=== PATIENT | female | born 1960 | race African-American/Black ===

== ENCOUNTER 2016-09-16 08:28 | Inpatient (IN) | payer OTHER ==
[2016-09-16 10:01] VITALS: BMI 22.4
--- NOTE | 2016-09-16 10:36 | HP ---
Admission ROS [facility] - [facility] Chief Complaint: i am here for rehab from cocaine Allergies/Adverse Reactions: Allergies Allergy/AdvReac Type Severity Reaction Status Date / Time No Known Drug Allergies Allergy Verified 09/16/16 10:29 tomato [Tomato] Allergy "Fresh" Verified 09/16/16 10:29 Tomato Allergy FRESH TOMATOES Allergy Itching Uncoded 09/16/16 10:29 History of Present Illness: this 56 years old female with cocaine dependence for rehab,last treatment [facility] 02/05/16 to 02/08/16 need help to go to rehab nicotine dependence weight loss schizophrenia no significant period of sobriety Exam Limitations: No Limitations - Ebola screening Have you traveled outside of the country in the last 21 days: No Have you had contact with anyone from an Ebola affected area: No Have you been sick,other than usual withdrawal symptoms: No - Review of Systems Constitutional: No Symptoms Reported EENT: reports: No Symptoms Reported Respiratory: reports: No Symptoms reported Cardiac: reports: No Symptoms Reported GI: reports: No Symptoms Reported : reports: No Symptoms Reported, Other (gerd) Musculoskeletal: reports: No Symptoms Reported Integumentary: reports: No Symptoms Reported Neuro: reports: No Symptoms reported Endocrine: reports: No Symptoms Reported Hematology: reports: No Symptoms Reported Psychiatric: reports: other (schizophrenia) Patient History - Patient Medical History Hx Anemia: No Hx Asthma: No Hx Chronic Obstructive Pulmonary Disease (COPD): No Hx Cancer: No Hx Cardiac Disorders: No Hx Congestive Heart Failure: No Hx Hypertension: Yes (non compliant with meds.) Hx Hypercholesterolemia: No Hx Pacemaker: No HX Cerebrovascular Accident: No Hx Seizures: No Hx Dementia: No Hx Diabetes: No Hx Gastrointestinal Disorders: Yes (Hx of acid reflux.) Hx Liver Disease: No Hx Genitourinary Disorders: No Hx Sexually Transmitted Disorders: No Hx Renal Disease (ESRD): No Hx Thyroid Disease: No Hx Human Immunodeficiency Virus (HIV): No (NEGATIVE HX 09/16) Hx Hepatitis C: No Hx Depression: Yes (ON MED) Hx Suicide Attempt: Yes (Pt tried to cut wrist in 2000;DENIES CURRENT S/H IDEATIONS) Hx Bipolar Disorder: Yes Hx Schizophrenia: Yes Other Medical History: n suicidal,no homicidal - Patient Surgical History Past Surgical History: No Hx Neurologic Surgery: No Hx Cataract Extraction: No Hx Cardiac Surgery: No Hx Lung Surgery: No Hx Breast Surgery: No Hx Breast Biopsy: No Hx Abdominal Surgery: No Hx Appendectomy: No Hx Cholecystectomy: No Hx Genitourinary Surgery: No Hx Section: No Hx Orthopedic Surgery: No Hx Hysterectomy: No Anesthesia Reaction: No - PPD History Previous Implant?: Yes Implanted On Prior [facility] Admission?: Yes Date: 06/24/15 Results: 0 mm PPD to be Administered?: Yes - Reproductive History Patient is a Female of Child Bearing Age (11 -55 yrs old): Yes Last Menstrual Period: 07/12/09 Patient : No - Smoking Cessation Smoking history: Current every day smoker Have you smoked in the past 12 months: No Aproximately how many cigarettes per day: 6 Cigars Per Day: 0 Hx Chewing Tobacco Use: No Initiated information on smoking cessation: Yes 'Breaking Loose' booklet given: 09/16/16 - Substance & Tx. History Hx Alcohol Use: No Hx Substance Use: Yes Substance Use Type: Cocaine Hx Substance Use Treatment: Yes ([facility] 02/05/16 to 02/08/16 not completed) - Substances Abused Crack Route: Smoking Frequency: Daily Amount used: $100 Age of first use: 23 Date of Last Use: 09/14/16 Family Disease History - Family Disease History Family Disease History: Other: Father (alcohol ), Brother (alcoholic), Sister (alcoholic) Admission Physical Exam S - Vital Signs Vital Signs: Vital Signs - 24 hr 09/16/16 09:50 Temperature 96.1 F L Pulse Rate 58 L Respiratory 20 Rate Blood Pressure 146/85 - Physical General Appearance: Yes: Within Normal Limits HEENTM: Yes: Hearing grossly Normal, Normal ENT Inspection, Pharynx Normal Respiratory: Yes: Lungs Clear, Normal Breath Sounds, No Respiratory Distress Neck: Yes: Within Normal Limits, Supple, Trachea in good position Breast: Yes: Breast Exam Deferred Cardiology: Yes: Within Normal Limits, Regular Rhythm, Regular Rate, S1, S2 Abdominal: Yes: Within Normal Limits, Normal Bowel Sounds, Non Tender, Flat, Soft Genitourinary: Yes: Within Normal Limits Back: Yes: Within Normal Limits Musculoskeletal: Yes: Within Normal Limits Extremities: Yes: Within Normal Limits 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: 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 NML intact, Fully Oriented, Alert, Motor Strength 5/5 Integumentary: Yes: Within Normal Limits Lymphatic: Yes: Within Normal Limits - Diagnostic (1) Bipolar disorder Current Visit: No Status: Chronic (2) Cocaine dependence, uncomplicated Current Visit: No Status: Chronic (3) Essential hypertension Current Visit: No Status: Chronic (4) GERD (gastroesophageal reflux disease) Current Visit: No Status: Chronic Qualifiers: Esophagitis presence: without esophagitis Qualified Code(s): K21.9 - Gastro-esophageal reflux disease without esophagitis (5) Nicotine dependence Current Visit: No Status: Chronic Qualifiers: Nicotine product type: cigarettes Substance use status: uncomplicated Qualified Code(s): F17.210 - Nicotine dependence, cigarettes, uncomplicated (6) PTSD (post-traumatic stress disorder) Current Visit: No Status: Chronic (7) Weight loss Current Visit: Yes Status: Acute Cleared for Admission [facility] - Detox or Rehab Claeared for Rehab Admission: Yes [facility] Breath Alcohol Content Breath Alcohol Content: 0 Urine Pregancy Test - Result Urine Test Results: Negative- NO Line Present Urine Drug Screen - Results Drug Screen Negative: No Urine Drug Screen Results: ISAEL-Cocaine
[2016-09-16] MEDS ORDERED: MAG HYDROX/AL HYDROX/SIMETH 30 ML UNIT-DOSE CUP PO PRN (10:46)
[2016-09-16] MEDS ORDERED: LOPERAMIDE HCL 2 MG CAPSULE PO PRN (10:46)
[2016-09-16] MEDS ORDERED: hydrOXYzine PAMOATE 50 MG CAPSULE (FP) PO PRN (10:46)
[2016-09-16] MEDS ORDERED: MAGNESIUM CITRATE 300 ML BOTTLE PO PRN (10:46)
[2016-09-16] MEDS ORDERED: diphenhydrAMINE HCL 50 MG CAPSULE PO PRN (10:46)
[2016-09-16] MEDS ORDERED: guaiFENesin/D-METHORPHAN HB 10 ML UNIT-DOSE CUPS PO PRN (10:46)
[2016-09-16] MEDS ORDERED: P-EPHED 60MG/TRIPROLIDI 2.5MG TABLET PO PRN (10:46)
[2016-09-16] MEDS ORDERED: MAGNESIUM HYDROX 2400MG/30ML ORAL SUSPENSION 30 ML CUP PO PRN (10:46)
[2016-09-16] MEDS ORDERED: ACETAMINOPHEN 325 MG TABLET (FP) PO PRN (10:46)
[2016-09-16] MEDS ORDERED: MENTHOL/PHENOL 1 EACH UD MM PRN (10:46)
[2016-09-16] MEDS ORDERED: IBUPROFEN 400 MG TABLET (FP) PO PRN (10:46)
[2016-09-16] MEDS: HYDROCHLOROTHIAZIDE 25 MG TABLET (FP) PO SCH (12:55)
[2016-09-16] MEDS: PANTOPRAZOLE 40 MG TABLET (FP) PO SCH (12:55)
[2016-09-16 15:51] LABS: MCH 30.6 pg (25.7-33.7); MCHC 32.6 g/dl (32.0-36.0); MEAN CELL VOLUME 93.6 fl (80-96); MEAN PLT VOLUME 8.4 fl (7.5-11.1); PLATELET COUNT 229 K/MM3 (134-434); RDW 14.2 % (11.6-15.6); WHITE BLOOD COUNT 3.4 K/mm3 (4.0-10.0)
--- NOTE | 2016-09-16 16:00 | PN ---
[facility] Progress Note Note: Psychiatry (coverage for Dr Harris) : Called to see this patient.Just admitted from [facility]. Patient is approached for psychiatric interview. " I am tired.I don't need to talk to psychiatrists." Ms Ramires left office without answering questions. Examination is deferred.
[2016-09-16 16:07] LABS: URINE APPEARANCE CLEAR; URINE BILIRUBIN NEGATIVE (NEGATIVE); URINE COLOR LTYELLOW; URINE GLUCOSE (UA) NEGATIVE (NEGATIVE); URINE KETONE NEGATIVE (NEGATIVE); URINE LEUK ESTERASE NEGATIVE (NEGATIVE); URINE NITRITE NEGATIVE (NEGATIVE); URINE PROTEIN NEGATIVE (NEGATIVE); URINE UROBILINOGEN NEGATIVE mg/dL (0.2-1.0)
[2016-09-16 16:08] LABS: URINE BLOOD 1+ (NEGATIVE)
[2016-09-16 16:12] LABS: ALBUMIN 3.4 g/dl (3.4-5.0); ANION GAP 6 (8-16); CO2 28 mmol/L (21-32); CREATININE 0.9 mg/dL (0.55-1.02); GLUCOSE,RANDOM 84 mg/dL (74-106); SGOT/AST 18 U/L (15-37); SGPT/ALT 25 U/L (12-78)
[2016-09-16 16:14] LABS: ALK PHOS 93 U/L (45-117); BILIRUBIN,TOTAL 0.2 mg/dL (0.2-1.0); TOT PROT 6.6 g/dl (6.4-8.2)
[2016-09-16 16:32] LABS: URINE MUCUS RARE; URINE RBC 4 /hpf (0-3); URINE WBC <1 /hpf (3-5)
--- NOTE | 2016-09-16 16:59 | EKG ---
Test Reason : Blood Pressure : / mmHG Vent. Rate : 058 BPM Atrial Rate : 058 BPM P-R Int : 150 ms QRS Dur : 098 ms QT Int : 458 ms P-R-T Axes : -12 001 026 degrees QTc Int : 449 ms SINUS BRADYCARDIA VOLTAGE CRITERIA FOR LEFT VENTRICULAR HYPERTROPHY NONSPECIFIC T WAVE ABNORMALITY ABNORMAL ECG NO PREVIOUS ECGS AVAILABLE Confirmed by AMBERLY TRAN, EARNEST ([id number]) on 09/16/2016 4:59:19 PM Referred By: Jenn Harris Confirmed By:EARNEST GAMING MD
[2016-09-16] MEDS: THIAMINE HCL 100 MG TABLET (FP) PO SCH (21:20)
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
[2016-09-17] MEDS: PRENATAL VITAMINS W/ FOLIC ACID TABLET (FP) PO SCH (09:40)
[2016-09-17] MEDS: HYDROCHLOROTHIAZIDE 25 MG TABLET (FP) PO SCH (09:40)
[2016-09-17] MEDS: PANTOPRAZOLE 40 MG TABLET (FP) PO SCH (09:40)
[2016-09-17] MEDS ORDERED: HYDROCHLOROTHIAZIDE 25 MG TABLET (FP) PO SCH (10:00)
[2016-09-17 12:45] LABS: HIV 1 & 2 AB NEGATIVE
[2016-09-17 12:46] LABS: HIV 1 AGp24 NEGATIVE
[2016-09-17] MEDS: THIAMINE HCL 100 MG TABLET (FP) PO SCH (21:19)
[2016-09-18] MEDS: PANTOPRAZOLE 40 MG TABLET (FP) PO SCH (09:35)
[2016-09-18] MEDS: PRENATAL VITAMINS W/ FOLIC ACID TABLET (FP) PO SCH (09:35)
[2016-09-18] MEDS: HYDROCHLOROTHIAZIDE 25 MG TABLET (FP) PO SCH (09:35)
[2016-09-18] MEDS ORDERED: LIDOCAINE 5% TOPICAL PATCH TP ONE (14:02)
[2016-09-18] MEDS: THIAMINE HCL 100 MG TABLET (FP) PO SCH (21:16)
[2016-09-18] MEDS ORDERED: LIDOCAINE PATCH REMOVAL MC SCH ×2 (22:00)
[2016-09-19 07:21] VITALS: BP 147/93; PULSE 60; TEMP 98.3
--- NOTE | 2016-09-19 09:10 | PN ---
[facility] Progress Note Note: Coverage for : Was called this am for discharge order because of the team decision to discharge patinet administratively due to threatened behavior on the unit.(please see medical staff notes). As per staff patient did not want to wait the psychiatrist for evaluation and left the unit. The undersigned went down and saw the patient in hallway, patient reported "I am ok , I need to go". Patient currently not on any psychotropics, she is calm and cooperative.
[2016-09-19] MEDS ORDERED: LIDOCAINE 5% TOPICAL PATCH TP SCH (10:00)
== END 2016-09-19 08:50 | disposition home or self-care (01) | DRG 772 ==
LOC: YASAS 08:28 → Y3E 10:55
PROVIDERS: ADMIT Psychiatry & Neurology Psychiatry; ATTEND Psychiatry & Neurology Psychiatry
PROC: HZ42ZZZ Group Counseling for Substance Abuse Treatment, Cognitive-Behavioral (ICD-10-PCS; principal; 2016-09-19)
DX: F10.220 Alcohol dependence with intoxication, uncomplicated (principal); F14.20 Cocaine dependence, uncomplicated; F25.9 Schizoaffective disorder, unspecified; F31.9 Bipolar disorder, unspecified; F43.10 Post-traumatic stress disorder, unspecified; I10 Essential (primary) hypertension; K21.9 Gastro-esophageal reflux disease without esophagitis; R63.4 Abnormal weight loss; Z68.22 Body mass index [BMI] 22.0-22.9, adult
CPT/HCPCS: 36415; 80053; 81003; 81015; 85027; 86593; 87389; 93005; 93010

== ENCOUNTER 2018-04-02 09:44 | Inpatient (IN) | payer OTHER ==
[2018-04-02 10:00] VITALS: BMI 29.9
--- NOTE | 2018-04-02 10:48 | HP ---
CIWA Score - Admission Criteria [facility]ASAS Guidelines: Admission for Medically Managed Detox: Requires at least one of the followin. CIWA greater than 12 2. Seizures within the past 24 hours 3. Delirium tremens within the past 24 hours 4. Hallucinations within the past 24 hours 5. Acute intervention needed for co occurring medical disorder 6. Acute intervention needed for co occurring psychiatric disorder 7. Severe withdrawal that cannot be handled at a lower level of care (continued vomiting, continued diarrhea, abnormal vital signs) requiring intravenous medication and/or fluids 8. Admission ROS [facility] - HPI Chief Complaint: i need help to go to rehab from cocaine Allergies/Adverse Reactions: Allergies Allergy/AdvReac Type Severity Reaction Status Date / Time tomato [Tomato] Allergy Severe Hives Verified 04/02/18 10:12 No Known Drug Allergies Allergy Verified 04/02/18 10:12 FRESH TOMATOES Allergy Severe Hives Uncoded 04/02/18 10:12 History of Present Illness: this 57 years old male with cocaine dependence seeking rehab,last treatment [facility] 09/16/16 to 09/19/16 not completed hypertension, bipolar disorder,non compliance nicotine dependence longest period of sobriety 6 months Exam Limitations: No Limitations - Ebola screening Have you traveled outside of the country in the last 21 days: No Have you had contact with anyone from an Ebola affected area: No Have you been sick,other than usual withdrawal symptoms: No Do you have a fever: No - Review of Systems Constitutional: No Symptoms Reported EENT: reports: No Symptoms Reported Respiratory: reports: No Symptoms reported GI: reports: No Symptoms Reported : reports: No Symptoms Reported Musculoskeletal: reports: No Symptoms Reported Integumentary: reports: No Symptoms Reported Neuro: reports: No Symptoms reported Endocrine: reports: No Symptoms Reported Hematology: reports: No Symptoms Reported Psychiatric: reports: No Sypmtoms Reported, Judgement Intact, Depressed Other Systems: Reviewed and Negative Patient History - Patient Medical History Hx Anemia: No Hx Asthma: No Hx Chronic Obstructive Pulmonary Disease (COPD): No Hx Cancer: No Hx Cardiac Disorders: No Hx Congestive Heart Failure: No Hx Hypertension: Yes Hx Hypercholesterolemia: No Hx Pacemaker: No HX Cerebrovascular Accident: No Hx Seizures: No Hx Dementia: No Hx Diabetes: No Hx Gastrointestinal Disorders: Yes (acid reflux) Hx Liver Disease: No Hx Genitourinary Disorders: No Hx Sexually Transmitted Disorders: No Hx Renal Disease (ESRD): No Hx Thyroid Disease: No Hx Human Immunodeficiency Virus (HIV): No (NEGATIVE HX 09/16) Hx Hepatitis C: No Hx Depression: Yes Hx Suicide Attempt: Yes (cut both wrists with a piece of glass at age 32) Hx Bipolar Disorder: Yes (no med) Hx Schizophrenia: No Other Medical History: no suicidal.no homicidal - Patient Surgical History Past Surgical History: No Hx Neurologic Surgery: No Hx Cataract Extraction: No Hx Cardiac Surgery: No Hx Lung Surgery: No Hx Breast Surgery: No Hx Breast Biopsy: No Hx Abdominal Surgery: No Hx Appendectomy: No Hx Cholecystectomy: No Hx Genitourinary Surgery: No Hx Section: No Hx Orthopedic Surgery: No Hx Hysterectomy: No Anesthesia Reaction: No - PPD History Previous Implant?: Yes Documented Results: Negative w/proof Implanted On Prior [facility] Admission?: Yes Date: 09/18/16 Results: 0 mm PPD to be Administered?: Yes - Reproductive History Patient is a Female of Child Bearing Age (11 -55 yrs old): Yes Last Menstrual Period: 07/12/09 Patient : No - Smoking Cessation Smoking history: Current every day smoker Have you smoked in the past 12 months: No Aproximately how many cigarettes per day: 5 Cigars Per Day: 0 Hx Chewing Tobacco Use: No Initiated information on smoking cessation: Yes 'Breaking Loose' booklet given: 04/02/18 - Substance & Tx. History Hx Alcohol Use: No Hx Substance Use: Yes Substance Use Type: Cocaine Hx Substance Use Treatment: Yes ([facility] 09/16/16 to 09/19/16) - Substances Abused Crack Route: Smoking Frequency: 3-6 times per week Amount used: $100 Age of first use: 23 Date of Last Use: 03/31/18 Family Disease History - Family Disease History Family Disease History: CA: Mother (breast cancer,), Other: Mother, Brother (alcoholic), Sister (alcoholic) Admission Physical Exam [facility] - Vital Signs Vital Signs: Vital Signs - 24 hr 04/02/18 09:57 Temperature 97.3 F L Pulse Rate 70 Respiratory 18 Rate Blood Pressure 148/92 - Physical General Appearance: Yes: Within Normal Limits HEENTM: Yes: Within Normal Limits, Normal ENT Inspection, Pharynx Normal Respiratory: Yes: Within Normal Limits, Lungs Clear, Normal Breath Sounds Neck: Yes: Within Normal Limits, Supple Breast: Yes: Breast Exam Deferred Cardiology: Yes: Within Normal Limits, Regular Rhythm, Regular Rate, S1, S2 Abdominal: Yes: Within Normal Limits, Normal Bowel Sounds, Non Tender, Soft Back: Yes: Within Normal Limits Extremities: Yes: Within Normal Limits 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: 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, Fully Oriented, Alert, Motor Strength 5/5 Integumentary: Yes: Within Normal Limits Lymphatic: Yes: Within Normal Limits - Diagnostic (1) Cocaine dependence, uncomplicated Current Visit: No Status: Chronic (2) Essential hypertension Current Visit: No Status: Chronic (3) GERD (gastroesophageal reflux disease) Current Visit: No Status: Chronic Qualifiers: Esophagitis presence: without esophagitis Qualified Code(s): K21.9 - Gastro -esophageal reflux disease without esophagitis (4) Nicotine dependence Current Visit: No Status: Chronic Qualifiers: Nicotine product type: cigarettes Substance use status: uncomplicated Qualified Code(s): F17.210 - Nicotine dependence, cigarettes, uncomplicated (5) Arthritis of right knee Current Visit: Yes Status: Acute Cleared for Admission [facility] - Detox or Rehab Claeared for Rehab Admission: Yes [facility] Breath Alcohol Content Breath Alcohol Content: 0 Urine Pregancy Test - Result Urine Test Results: Negative- NO Line Present Urine Drug Screen - Results Drug Screen Negative: No Urine Drug Screen Results: ISAEL-Cocaine Inpatient Rehab Admission - Initial Determination Are CD services needed?: Yes Free of communicable disease: Yes Not in need of hospitalization: Yes - Rehab Admission Criteria Previous failed treatment: Yes Poor recovery environment: Yes Comorbidities: Yes Lacks judgement: No Patient is meeting Inpatient Rehab admission criteria:: Yes
[2018-04-02] MEDS ORDERED: ACETAMINOPHEN 325 MG TABLET (FP) PO PRN (11:14)
[2018-04-02] MEDS ORDERED: MAGNESIUM CITRATE 300 ML BOTTLE PO PRN (11:14)
[2018-04-02] MEDS ORDERED: NICOTINE POLACRILEX 2 MG GUM BUC PRN (11:14)
[2018-04-02] MEDS ORDERED: LOPERAMIDE HCL 2 MG CAPSULE PO PRN (11:14)
[2018-04-02] MEDS ORDERED: P-EPHED 60MG/TRIPROLIDI 2.5MG TABLET PO PRN (11:14)
[2018-04-02] MEDS ORDERED: MENTHOL/PHENOL 1 EACH UD MM PRN (11:14)
[2018-04-02] MEDS ORDERED: MAGNESIUM HYDROX 2400MG/30ML ORAL SUSPENSION 30 ML CUP PO PRN (11:14)
[2018-04-02] MEDS ORDERED: MAG HYDROX/AL HYDROX/SIMETH 30 ML UNIT-DOSE CUP PO PRN (11:14)
[2018-04-02] MEDS ORDERED: guaiFENesin/D-METHORPHAN HB 10 ML UNIT-DOSE CUPS PO PRN (11:14)
[2018-04-02] MEDS ORDERED: hydrOXYzine PAMOATE 25 MG CAPSULE (FP) PO PRN (11:42)
[2018-04-02] MEDS: HYDROCHLOROTHIAZIDE 25 MG TABLET (FP) PO SCH (14:20)
[2018-04-02 15:39] LABS: HEMATOCRIT 38.1 % (32.4-45.2); HEMOGLOBIN 12.9 GM/dL (10.7-15.3); MCH 31.7 pg (25.7-33.7); MCHC 33.8 g/dl (32.0-36.0); MEAN CELL VOLUME 93.7 fl (80-96); MEAN PLT VOLUME 8.2 fl (7.5-11.1); PLATELET COUNT 237 K/MM3 (134-434); RBC 4.06 M/mm3 (3.60-5.2); RDW 14.5 % (11.6-15.6); WHITE BLOOD COUNT 5.6 K/mm3 (4.0-10.0)
[2018-04-02 15:54] LABS: ALBUMIN 3.8 g/dl (3.4-5.0); ALK PHOS 105 U/L (45-117); ANION GAP 6 MMOL/L (8-16); BILIRUBIN,TOTAL 0.4 mg/dL (0.2-1); BLOOD UREA NITROGEN 16 mg/dL (7-18); CALCIUM 9.5 mg/dL (8.5-10.1); CHLORIDE 108 mmol/L (98-107); CO2 29 mmol/L (21-32); CREATININE 1.2 mg/dL (0.55-1.3); GLUCOSE,RANDOM 90 mg/dL (74-106); POTASSIUM 4.2 mmol/L (3.5-5.1); SGOT/AST 16 U/L (15-37); SGPT/ALT 23 U/L (13-61); SODIUM 142 mmol/L (136-145); TOT PROT 7.2 g/dl (6.4-8.2)
--- NOTE | 2018-04-02 16:37 | EKG ---
Test Reason : Blood Pressure : / mmHG Vent. Rate : 058 BPM Atrial Rate : 058 BPM P-R Int : 144 ms QRS Dur : 088 ms QT Int : 446 ms P-R-T Axes : 004 054 032 degrees QTc Int : 437 ms SINUS BRADYCARDIA MINIMAL VOLTAGE CRITERIA FOR LVH, MAY BE NORMAL VARIANT NONSPECIFIC ST AND T WAVE ABNORMALITY ABNORMAL ECG WHEN COMPARED WITH ECG OF 16-SEP-2016 12:19, NON-SPECIFIC CHANGE IN ST SEGMENT IN INFERIOR LEADS ST NO LONGER DEPRESSED IN LATERAL LEADS Confirmed by CARLA MILLER MD ([id number]) on 04/02/2018 4:36:43 PM Referred By: Confirmed By:CARLA MILLER MD
[2018-04-02] MEDS: THIAMINE HCL 100 MG TABLET (FP) PO SCH (21:14)
[2018-04-02] MEDS: IBUPROFEN 400 MG TABLET (FP) PO PRN (21:14)
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
[2018-04-03] MEDS: HYDROCHLOROTHIAZIDE 25 MG TABLET (FP) PO SCH (10:47)
[2018-04-03] MEDS: PRENATAL VITAMINS W/ FOLIC ACID TABLET (FP) PO SCH (10:47)
[2018-04-03] MEDS: IBUPROFEN 400 MG TABLET (FP) PO PRN (17:15)
[2018-04-03] MEDS: THIAMINE HCL 100 MG TABLET (FP) PO SCH (21:06)
[2018-04-03] MEDS: MELATONIN 5 MG TABLETS PO PRN (21:08)
[2018-04-04] MEDS: HYDROCHLOROTHIAZIDE 25 MG TABLET (FP) PO SCH (10:15)
[2018-04-04] MEDS: PRENATAL VITAMINS W/ FOLIC ACID TABLET (FP) PO SCH (10:16)
[2018-04-04] MEDS: THIAMINE HCL 100 MG TABLET (FP) PO SCH (21:33)
[2018-04-04] MEDS: MELATONIN 5 MG TABLETS PO PRN (21:33)
[2018-04-05 07:29] VITALS: BP 137/86; PULSE 62; TEMP 97.9
[2018-04-05] MEDS: HYDROCHLOROTHIAZIDE 25 MG TABLET (FP) PO SCH (10:30)
[2018-04-05] MEDS: PRENATAL VITAMINS W/ FOLIC ACID TABLET (FP) PO SCH (10:30)
--- NOTE | 2018-04-05 15:09 | PN ---
[facility] Progress Note Note: called by nurse stated patient would like to leave ,seen by counselor,all attempted to convince patient to stay with no available, patient did not want to wait,signed release ama ,left the unit in stable condition
== END 2018-04-05 13:24 | disposition left against medical advice (07) | DRG 770 ==
LOC: YASAS 09:44 → Y3E 11:35
PROVIDERS: ADMIT Neuromusculoskeletal Medicine & OMM; ATTEND Neuromusculoskeletal Medicine & OMM
PROC: HZ2ZZZZ Detoxification Services for Substance Abuse Treatment (ICD-10-PCS; principal; 2018-04-02)
DX: F10.230 Alcohol dependence with withdrawal, uncomplicated (principal); F14.20 Cocaine dependence, uncomplicated; F17.210 Nicotine dependence, cigarettes, uncomplicated; F31.81 Bipolar II disorder; F25.9 Schizoaffective disorder, unspecified; I10 Essential (primary) hypertension; K21.9 Gastro-esophageal reflux disease without esophagitis; M13.861 Other specified arthritis, right knee; Z91.5 Personal history of self-harm
CPT/HCPCS: 36415; 80053; 85027; 86593; 93005; 93010

== ENCOUNTER 2018-06-08 15:21 | Inpatient (IN) | payer OTHER ==
[2018-06-08 19:05] VITALS: BMI 27.4
--- NOTE | 2018-06-08 19:38 | HP ---
CIWA Score Nausea/Vomitin Muscle Tremors: 2 Anxiety: 3 Agitation: 0-Normal Activity Paroxysmal Sweats: 2 Orientation: 0-Oriented Tacttile Disturbances: 2-Mild Itch/Numbness/Burn (finger tips b/l) Auditory Disturbances: 0-None Visual Disturbances: 0-None Headache: 0-None Present CIWA-Ar Total Score: 12 - Admission Criteria OASAS Guidelines: Admission for Medically Managed Detox: Requires at least one of the followin. CIWA greater than 12 2. Seizures within the past 24 hours 3. Delirium tremens within the past 24 hours 4. Hallucinations within the past 24 hours 5. Acute intervention needed for co occurring medical disorder 6. Acute intervention needed for co occurring psychiatric disorder 7. Severe withdrawal that cannot be handled at a lower level of care (continued vomiting, continued diarrhea, abnormal vital signs) requiring intravenous medication and/or fluids 8. Patient presents the following: CIWA greater than 12, Acute intervention needed for co-occurring med or psych disorder Admission Criteria Met: Admission criteria met Admission ROS [facility] Chief Complaint: " I am tire, detox" Allergies/Adverse Reactions: Allergies Allergy/AdvReac Type Severity Reaction Status Date / Time tomato [Tomato] Allergy Severe Hives Verified 04/02/18 10:12 No Known Drug Allergies Allergy Verified 04/02/18 10:12 FRESH TOMATOES Allergy Severe Hives Uncoded 04/02/18 10:12 History of Present Illness: this 57 years old female with cocaine and alcohol dependence seeking detox, , last treatment rehab at [facility] 04/02/18 - 04/05/18 left AMA. 2-3 x 6 pack of beer day, last drink yesterday, reports drinking has worsen in the past year Denies hx of seizures or blackouts PMHX: hypertension Psych : bipolar disorder and depression non compliance longest period of sobriety 6 months Exam Limitations: No Limitations - Ebola screening Have you traveled outside of the country in the last 21 days: No Have you had contact with anyone from an Ebola affected area: No - Review of Systems Constitutional: Chills, Loss of Appetite, Changes in sleep, Unintentional Wgt. Loss (20 lbs in past 30 days), Other (fatigue) EENT: reports: No Symptoms Reported Respiratory: reports: No Symptoms reported Cardiac: reports: Palpitations GI: reports: Diarrhea (x 2 days), Nausea, Poor Appetite, Poor Fluid Intake : reports: No Symptoms Reported Musculoskeletal: reports: Back Pain (low back for 4-5 months) Integumentary: reports: Dryness Neuro: reports: Numbness (finger tips b/t) Endocrine: reports: Increased Thirst Hematology: reports: No Symptoms Reported Psychiatric: reports: Orientated x3, Depressed Other Systems: Reviewed and Negative Patient History - Patient Medical History Hx Anemia: No Hx Asthma: No Hx Chronic Obstructive Pulmonary Disease (COPD): No Hx Cancer: No Hx Cardiac Disorders: No Hx Congestive Heart Failure: No Hx Hypertension: No Hx Hypercholesterolemia: No Hx Pacemaker: No HX Cerebrovascular Accident: No Hx Seizures: No Hx Dementia: No Hx Diabetes: No Hx Gastrointestinal Disorders: No Hx Liver Disease: No Hx Genitourinary Disorders: No Hx Sexually Transmitted Disorders: No Hx Renal Disease (ESRD): No Hx Thyroid Disease: No Hx Human Immunodeficiency Virus (HIV): No (NEGATIVE HX 09/16) Hx Hepatitis C: No Hx Depression: Yes Hx Suicide Attempt: Yes (cut both wrists with a piece of glass at age 32) Hx Bipolar Disorder: Yes (no med) Hx Schizophrenia: No - Patient Surgical History Past Surgical History: No Hx Neurologic Surgery: No Hx Cataract Extraction: No Hx Cardiac Surgery: No Hx Lung Surgery: No Hx Breast Surgery: No Hx Breast Biopsy: No Hx Abdominal Surgery: No Hx Appendectomy: No Hx Cholecystectomy: No Hx Genitourinary Surgery: No Hx Section: No Hx Orthopedic Surgery: No Hx Hysterectomy: No Anesthesia Reaction: No - PPD History Previous Implant?: No Documented Results: Negative w/proof Date: 04/04/18 Results: 0 mm PPD to be Administered?: No - Reproductive History Last Menstrual Period: 07/12/09 - Smoking Cessation Smoking history: Current every day smoker Have you smoked in the past 12 months: No Aproximately how many cigarettes per day: 5 Cigars Per Day: 0 Hx Chewing Tobacco Use: No Initiated information on smoking cessation: Yes 'Breaking Loose' booklet given: 06/08/18 - Substance & Tx. History Hx Alcohol Use: Yes Hx Substance Use: Yes Substance Use Type: Alcohol, Cocaine Hx Substance Use Treatment: Yes ([facility] 04/02/18 - 04/05/18 left AMA.) - Substances abused Alcohol Substance route: Oral Frequency: Daily Amount used: 2-3 x 6 pack of beer day Age of first use: 17 Date of last use: 06/07/18 Family Disease History - Family Disease History Family Disease History: CA: Mother (breast cancer,), Other: Father ( alcohol ), Mother, Brother (alcoholic), Sister (alcoholic) Admission Physical Exam [facility] - Vital Signs Vital Signs: Vital Signs - 24 hr 06/08/18 06/08/18 19:01 19:05 Temperature 98.0 F 98.0 F Pulse Rate 69 69 Respiratory 18 18 Rate Blood Pressure 135/84 135/84 - Physical General Appearance: Yes: Disheveled (unkempt), Sweating, Anxious HEENTM: Yes: EOMI, Hearing grossly Normal, Normal ENT Inspection, Normocephalic , Normal Voice, LUPE, Pharynx Normal, Tm's normal, Other (edentulous, cheilitis) Respiratory: Yes: Chest Non-Tender, Lungs Clear, Normal Breath Sounds, No Respiratory Distress, No Accessory Muscle Use Neck: Yes: Within Normal Limits Breast: Yes: Breast Exam Deferred Cardiology: Yes: Regular Rhythm, Regular Rate Abdominal: Yes: Normal Bowel Sounds, Non Tender, Soft, Protuberent Genitourinary: Yes: Within Normal Limits Back: Yes: Normal Inspection Musculoskeletal: Yes: full range of Motion, Gait Steady, Pelvis Stable, Back pain Extremities: Yes: Normal Capillary Refill, Normal Inspection, Normal Range of Motion, Non-Tender 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: tube washer II-XII NML intact, Fully Oriented, Alert, Motor Strength 5/5, Depressed Affect Integumentary: Yes: Normal Color, Warm, Diaphoresis Lymphatic: Yes: Within Normal Limits - Diagnostic (1) Weight loss Current Visit: Yes Status: Acute (2) Alcohol dependence with uncomplicated withdrawal Current Visit: Yes Status: Acute (3) Essential hypertension Current Visit: Yes Status: Chronic (4) Nicotine dependence Current Visit: Yes Status: Chronic Qualifiers: Nicotine product type: cigarettes Substance use status: uncomplicated Qualified Code(s): F17.210 - Nicotine dependence, cigarettes, uncomplicated Cleared for Admission [facility] - Detox or Rehab [facility] Level of Care: Medically Managed Detox Regimen/Protocol: Librium Breathalyzer - Breathalyzer Breathalyzer: 0 POC Urine test - Control test control: Yes - Result Urine Test Results: Negative - NO line present Urine Drug Screen - Test Device Lot number: [id number] Expiration date: 05/31/19 - Control Is test valid?: Yes - Results Drug screen NEGATIVE: No Urine drug screen results: [facility]-Cocaine Inpatient Rehab Admission - Rehab Decision to Admit Inpatient rehab admission?: No
[2018-06-08] MEDS ORDERED: ACETAMINOPHEN 325 MG TABLET (FP) PO PRN ×2 (19:46)
[2018-06-08] MEDS ORDERED: MAGNESIUM CITRATE 300 ML BOTTLE PO PRN (19:46)
[2018-06-08] MEDS ORDERED: MELATONIN 5 MG TABLETS PO PRN (19:46)
[2018-06-08] MEDS ORDERED: METHOCARBAMOL 500 MG TABLET PO PRN (19:46)
[2018-06-08] MEDS ORDERED: IBUPROFEN 400 MG TABLET (FP) PO PRN (19:46)
[2018-06-08] MEDS ORDERED: MAGNESIUM HYDROX 2400MG/30ML ORAL SUSPENSION 30 ML CUP PO PRN (19:46)
[2018-06-08] MEDS ORDERED: chlordiazePOXIDE HCL 25 MG CAPSULE PO PRN (19:46)
[2018-06-08] MEDS ORDERED: BISMUTH SUBSALICYLATE 524 MG/30 ML UD PO PRN (19:46)
[2018-06-08] MEDS ORDERED: MAG HYDROX/AL HYDROX/SIMETH 30 ML UNIT-DOSE CUP PO PRN (19:46)
[2018-06-08] MEDS ORDERED: hydrOXYzine PAMOATE 25 MG CAPSULE (FP) PO PRN (19:46)
[2018-06-08] MEDS ORDERED: MENTHOL/PHENOL 1 EACH UD MM PRN (19:46)
[2018-06-08] MEDS ORDERED: NICOTINE POLACRILEX 2 MG GUM BUC PRN (19:46)
[2018-06-08] MEDS: chlordiazePOXIDE HCL 25 MG CAPSULE PO SCH (22:29)
[2018-06-08] MEDS: THIAMINE HCL 100 MG TABLET (FP) PO SCH (22:29)
[2018-06-09] MEDS: chlordiazePOXIDE HCL 25 MG CAPSULE PO SCH ×4 (06:37→22:31)
[2018-06-09 10:37] LABS: HEMATOCRIT 37.6 % (32.4-45.2); HEMOGLOBIN 12.8 GM/dL (10.7-15.3); MCH 31.4 pg (25.7-33.7); MCHC 33.9 g/dl (32.0-36.0); MEAN CELL VOLUME 92.8 fl (80-96); MEAN PLT VOLUME 8.5 fl (7.5-11.1); PLATELET COUNT 197 K/MM3 (134-434); RBC 4.05 M/mm3 (3.60-5.2); RDW 15.3 % (11.6-15.6)
[2018-06-09 10:42] LABS: ALBUMIN 3.1 g/dl (3.4-5.0); ALK PHOS 79 U/L (45-117); ANION GAP 4 MMOL/L (8-16); BILIRUBIN,TOTAL 0.4 mg/dL (0.2-1); BLOOD UREA NITROGEN 22 mg/dL (7-18); CHLORIDE 114 mmol/L (98-107); CO2 26 mmol/L (21-32); CREATININE 1.1 mg/dL (0.55-1.3); GLUCOSE,RANDOM 93 mg/dL (74-106); POTASSIUM 4.1 mmol/L (3.5-5.1); SGOT/AST 31 U/L (15-37); SGPT/ALT 34 U/L (13-61); SODIUM 144 mmol/L (136-145); TOT PROT 6.2 g/dl (6.4-8.2)
[2018-06-09] MEDS: PRENATAL VITAMINS W/ FOLIC ACID TABLET (FP) PO SCH (11:09)
[2018-06-09] MEDS: HYDROCHLOROTHIAZIDE 25 MG TABLET (FP) PO SCH (11:09)
[2018-06-09] MEDS: NICOTINE 14 MG/24 HOURS TOPICAL PATCH TD SCH (11:09)
--- NOTE | 2018-06-09 14:53 | PN ---
[facility] CIWA - CIWA Score Nausea/Vomitin-No Nausea/No Vomiting Muscle Tremors: 3 Anxiety: 1-Mildly Anxious Agitation: 2 Paroxysmal Sweats: 1-Minimal Palms Moist Orientation: 2-Disoriented Date<2 days Tacttile Disturbances: 0-None Auditory Disturbances: 0-None Visual Disturbances: 0-None Headache: 0-None Present CIWA-Ar Total Score: 9 [facility] Progress Note (SOAP) Subjective: doing ok today attend group and participate in discussion Objective: 06/09/18 14:52 Vital Signs Temperature 98.1 F 06/09/18 09:14 Pulse Rate 64 06/09/18 09:14 Respiratory Rate 18 06/09/18 09:14 Blood Pressure 135/82 06/09/18 09:14 O2 Sat by Pulse Oximetry (%) Laboratory Last Values WBC 3.0 K/mm3 (4.0-10.0) L 06/09/18 07:45 RBC 4.05 M/mm3 (3.60-5.2) 06/09/18 07:45 Hgb 12.8 GM/dL (10.7-15.3) 06/09/18 07:45 Hct 37.6 % (32.4-45.2) 06/09/18 07:45 MCV 92.8 fl (80-96) 06/09/18 07:45 MCH 31.4 pg (25.7-33.7) 06/09/18 07:45 MCHC 33.9 g/dl (32.0-36.0) 06/09/18 07:45 RDW 15.3 % (11.6-15.6) 06/09/18 07:45 Plt Count 197 K/MM3 (134-434) 06/09/18 07:45 MPV 8.5 fl (7.5-11.1) 06/09/18 07:45 Sodium 144 mmol/L (136-145) 06/09/18 07:45 Potassium 4.1 mmol/L (3.5-5.1) 06/09/18 07:45 Chloride 114 mmol/L (98-107) H 06/09/18 07:45 Carbon Dioxide 26 mmol/L (21-32) 06/09/18 07:45 Anion Gap 4 MMOL/L (8-16) L 06/09/18 07:45 BUN 22 mg/dL (7-18) H 06/09/18 07:45 Creatinine 1.1 mg/dL (0.55-1.3) 06/09/18 07:45 Creat Clearance w eGFR 51.57 (>60) 06/09/18 07:45 Random Glucose 93 mg/dL (74-106) 06/09/18 07:45 Calcium 9.0 mg/dL (8.5-10.1) 06/09/18 07:45 Total Bilirubin 0.4 mg/dL (0.2-1) 06/09/18 07:45 AST 31 U/L (15-37) 06/09/18 07:45 ALT 34 U/L (13-61) 06/09/18 07:45 Alkaline Phosphatase 79 U/L (45-117) 06/09/18 07:45 Total Protein 6.2 g/dl (6.4-8.2) L 06/09/18 07:45 Albumin 3.1 g/dl (3.4-5.0) L 06/09/18 07:45 lab noted Assessment: 06/09/18 14:52 withdrawal sx Plan: continue detox
--- NOTE | 2018-06-09 17:06 | CONSULT ---
[facility] Psychiatric Consult - Data Date of interview: 06/09/18 Admission source: [facility] Identifying data: Approached for psychiaric interview. Patient refused. Nursing staff is made aware.
[2018-06-09] MEDS ORDERED: hydrOXYzine HCL 25 MG TABLET (FP) PO PRN (18:51)
[2018-06-09] MEDS: THIAMINE HCL 100 MG TABLET (FP) PO SCH (22:31)
[2018-06-10] MEDS: chlordiazePOXIDE HCL 25 MG CAPSULE PO SCH ×3 (06:23→17:18)
[2018-06-10] MEDS: HYDROCHLOROTHIAZIDE 25 MG TABLET (FP) PO SCH (10:46)
[2018-06-10] MEDS: PRENATAL VITAMINS W/ FOLIC ACID TABLET (FP) PO SCH (10:46)
[2018-06-10] MEDS: NICOTINE 14 MG/24 HOURS TOPICAL PATCH TD SCH (10:49)
--- NOTE | 2018-06-10 15:52 | PN ---
S CIWA - CIWA Score Nausea/Vomitin-Mild Nausea/No Vomiting Muscle Tremors: 1-None Visible, but [place] Anxiety: 1-Mildly Anxious Agitation: 1-Slight > Activity Paroxysmal Sweats: 1-Minimal Palms Moist Orientation: 0-Oriented Tacttile Disturbances: 0-None Auditory Disturbances: 0-None Visual Disturbances: 0-None Headache: 0-None Present CIWA-Ar Total Score: 5 [facility] Progress Note (SOAP) Subjective: pt has no complaints today- says she is feeling fine. O: Vital Signs - 24 hr 06/09/18 06/09/18 06/10/18 18:07 21:43 00:30 Temperature 97.0 F L 96.7 F L Pulse Rate 59 L 69 Respiratory 18 16 18 Rate Blood Pressure 132/81 153/91 06/10/18 06/10/18 06/10/18 06:34 07:44 09:49 Temperature 98.1 F 98.4 F Pulse Rate 68 67 70 Respiratory 18 18 18 Rate Blood Pressure 167/87 127/79 125/70 Laboratory Tests 06/09/18 06/09/18 07:45 07:45 WBC 3.0 L RBC 4.05 Hgb 12.8 Hct 37.6 MCV 92.8 MCH 31.4 MCHC 33.9 RDW 15.3 Plt Count 197 MPV 8.5 Sodium 144 Potassium 4.1 Chloride 114 H Carbon Dioxide 26 Anion Gap 4 L BUN 22 H Creatinine 1.1 Creat Clearance w eGFR 51.57 Random Glucose 93 Calcium 9.0 Total Bilirubin 0.4 AST 31 ALT 34 Alkaline Phosphatase 79 Total Protein 6.2 L Albumin 3.1 L decreased GFR nl Cr 1.1 albumin 3.1 a/p: continue alcohol detox protocol- pt stable
[2018-06-10] MEDS: THIAMINE HCL 100 MG TABLET (FP) PO SCH (22:28)
[2018-06-10] MEDS: chlordiazePOXIDE HCL 10 MG CAPSULE PO SCH (22:28)
[2018-06-10] MEDS ORDERED: chlordiazePOXIDE HCL 10 MG CAPSULE PO PRN (23:00)
[2018-06-11] MEDS: chlordiazePOXIDE HCL 10 MG CAPSULE PO SCH ×3 (06:19→18:27)
[2018-06-11] MEDS: HYDROCHLOROTHIAZIDE 25 MG TABLET (FP) PO SCH (10:12)
[2018-06-11] MEDS: PRENATAL VITAMINS W/ FOLIC ACID TABLET (FP) PO SCH (10:12)
[2018-06-11] MEDS: NICOTINE 14 MG/24 HOURS TOPICAL PATCH TD SCH (11:11)
--- NOTE | 2018-06-11 15:32 | PN ---
[facility] CIWA - CIWA Score Nausea/Vomitin-No Nausea/No Vomiting Muscle Tremors: 1-None Visible, but [place] Anxiety: 0-No Anxiety, at Ease Agitation: 1-Slight > Activity Paroxysmal Sweats: No Perspiration Orientation: 0-Oriented Tacttile Disturbances: 0-None Auditory Disturbances: 0-None Visual Disturbances: 0-None Headache: 0-None Present CIWA-Ar Total Score: 2 [facility] Progress Note (SOAP) Subjective: feeling better discuss aftercare with staff Objective: 06/11/18 15:31 Vital Signs Temperature 96 F L 06/11/18 13:28 Pulse Rate 70 06/11/18 13:28 Respiratory Rate 20 06/11/18 13:28 Blood Pressure 133/84 06/11/18 13:28 O2 Sat by Pulse Oximetry (%) Laboratory Last Values WBC 3.0 K/mm3 (4.0-10.0) L 06/09/18 07:45 RBC 4.05 M/mm3 (3.60-5.2) 06/09/18 07:45 Hgb 12.8 GM/dL (10.7-15.3) 06/09/18 07:45 Hct 37.6 % (32.4-45.2) 06/09/18 07:45 MCV 92.8 fl (80-96) 06/09/18 07:45 MCH 31.4 pg (25.7-33.7) 06/09/18 07:45 MCHC 33.9 g/dl (32.0-36.0) 06/09/18 07:45 RDW 15.3 % (11.6-15.6) 06/09/18 07:45 Plt Count 197 K/MM3 (134-434) 06/09/18 07:45 MPV 8.5 fl (7.5-11.1) 06/09/18 07:45 Sodium 144 mmol/L (136-145) 06/09/18 07:45 Potassium 4.1 mmol/L (3.5-5.1) 06/09/18 07:45 Chloride 114 mmol/L (98-107) H 06/09/18 07:45 Carbon Dioxide 26 mmol/L (21-32) 06/09/18 07:45 Anion Gap 4 MMOL/L (8-16) L 06/09/18 07:45 BUN 22 mg/dL (7-18) H 06/09/18 07:45 Creatinine 1.1 mg/dL (0.55-1.3) 06/09/18 07:45 Creat Clearance w eGFR 51.57 (>60) 06/09/18 07:45 Random Glucose 93 mg/dL (74-106) 06/09/18 07:45 Calcium 9.0 mg/dL (8.5-10.1) 06/09/18 07:45 Total Bilirubin 0.4 mg/dL (0.2-1) 06/09/18 07:45 AST 31 U/L (15-37) 06/09/18 07:45 ALT 34 U/L (13-61) 06/09/18 07:45 Alkaline Phosphatase 79 U/L (45-117) 06/09/18 07:45 Total Protein 6.2 g/dl (6.4-8.2) L 06/09/18 07:45 Albumin 3.1 g/dl (3.4-5.0) L 06/09/18 07:45 lab noted Assessment: 06/11/18 15:31 mild withdrawal sx Plan: continue detox
--- NOTE | 2018-06-11 17:30 | DS ---
[facility] Detox Discharge Summary Admission Date: 06/08/18 - History Present History: Alcohol Dependence - Physical Exam Results Vital Signs: Vital Signs Temperature 96 F L 06/11/18 13:28 Pulse Rate 70 06/11/18 13:28 Respiratory Rate 20 06/11/18 13:28 Blood Pressure 133/84 06/11/18 13:28 O2 Sat by Pulse Oximetry (%) - Treatment Hospital Course: Detox Protocol Followed, Detoxed Safely, Discharged Condition Good - Medication Discharge Medications: Ambulatory Orders Hydrochlorothiazide [Hctz -] 25 mg PO DAILY #30 tablet 09/17/15 Quetiapine Fumarate [Seroquel] 100 tab PO HS #30 tablet 12/12/15 Citalopram Hydrobromide [Celexa -] 20 mg PO DAILY #30 tablet 02/06/16 - Diagnosis (1) Alcohol dependence with uncomplicated withdrawal Current Visit: Yes Status: Acute - AMA Did Patient Leave Against Medical Advice: No (pt states feeling " great " , requesting to leave this evening)
[2018-06-11 18:17] VITALS: BP 131/82; PULSE 65; TEMP 97.8
[2018-06-11] MEDS ORDERED: chlordiazePOXIDE HCL 10 MG CAPSULE PO SCH (23:00)
== END 2018-06-11 17:50 | disposition home or self-care (01) | DRG 775 ==
LOC: YASAS 15:21 → Y3N 20:09
PROVIDERS: ADMIT Surgery; ATTEND Surgery
PROC: HZ2ZZZZ Detoxification Services for Substance Abuse Treatment (ICD-10-PCS; principal; 2018-06-08)
DX: F10.230 Alcohol dependence with withdrawal, uncomplicated (principal); F17.210 Nicotine dependence, cigarettes, uncomplicated; I10 Essential (primary) hypertension; R63.4 Abnormal weight loss; Z91.5 Personal history of self-harm
CPT/HCPCS: 36415; 80053; 85027

== ENCOUNTER 2018-08-27 13:19 | Inpatient (IN) | payer OTHER ==
[2018-08-27 14:57] VITALS: BMI 25.6
[2018-08-27] MEDS ORDERED: MAG HYDROX/AL HYDROX/SIMETH 30 ML UNIT-DOSE CUP PO PRN (18:30)
[2018-08-27] MEDS ORDERED: LOPERAMIDE HCL 2 MG CAPSULE PO PRN (18:30)
[2018-08-27] MEDS ORDERED: IBUPROFEN 400 MG TABLET (FP) PO PRN (18:30)
[2018-08-27] MEDS ORDERED: guaiFENesin 200 MG/10 ML 10 ML UNIT-DOSE CUPS PO PRN (18:30)
[2018-08-27] MEDS ORDERED: P-EPHED 60MG/TRIPROLIDI 2.5MG TABLET PO PRN (18:30)
[2018-08-27] MEDS ORDERED: NICOTINE POLACRILEX 2 MG GUM BC PRN (18:30)
[2018-08-27] MEDS ORDERED: MAGNESIUM HYDROX 2400MG/30ML ORAL SUSPENSION 30 ML CUP PO PRN (18:30)
[2018-08-27] MEDS ORDERED: MAGNESIUM CITRATE 300 ML BOTTLE PO PRN (18:30)
[2018-08-27] MEDS ORDERED: MENTHOL/PHENOL 1 EACH UD MM PRN (18:30)
[2018-08-27] MEDS ORDERED: hydrOXYzine PAMOATE 25 MG CAPSULE (FP) PO PRN (18:30)
[2018-08-27] MEDS ORDERED: ACETAMINOPHEN 325 MG TABLET (FP) PO PRN (18:30)
--- NOTE | 2018-08-27 18:30 | HP ---
CIWA Score - Admission Criteria OASAS Guidelines: Admission for Medically Managed Detox: Requires at least one of the followin. CIWA greater than 12 2. Seizures within the past 24 hours 3. Delirium tremens within the past 24 hours 4. Hallucinations within the past 24 hours 5. Acute intervention needed for co occurring medical disorder 6. Acute intervention needed for co occurring psychiatric disorder 7. Severe withdrawal that cannot be handled at a lower level of care (continued vomiting, continued diarrhea, abnormal vital signs) requiring intravenous medication and/or fluids 8. Admission ROS S - HPI Chief Complaint: crack /cocaine rehab Allergies/Adverse Reactions: Allergies Allergy/AdvReac Type Severity Reaction Status Date / Time tomato [Tomato] Allergy Severe Hives Verified 08/27/18 14:50 No Known Drug Allergies Allergy Verified 08/27/18 14:50 FRESH TOMATOES Allergy Severe Hives Uncoded 08/27/18 14:50 History of Present Illness: 58 yo female with hx of crack/cocaine and nicotine dependence is here seeking inpatient rehab, patient is known to the program, this is one of multiple admissions d/t to relapse, last admission June 2018. PMHX: HTN, Psych: bipolar , depression. Denies SI/HI Exam Limitations: No Limitations - Ebola screening Have you traveled outside of the country in the last 21 days: No Have you had contact with anyone from an Ebola affected area: No - Review of Systems Constitutional: No Symptoms Reported EENT: reports: No Symptoms Reported Respiratory: reports: No Symptoms reported Cardiac: reports: No Symptoms Reported GI: reports: No Symptoms Reported : reports: No Symptoms Reported Musculoskeletal: reports: Joint Pain (right knee) Integumentary: reports: No Symptoms Reported Neuro: reports: No Symptoms reported Endocrine: reports: No Symptoms Reported Hematology: reports: No Symptoms Reported Psychiatric: reports: Orientated x3, Anxious Other Systems: Reviewed and Negative Patient History - Patient Medical History Hx Anemia: No Hx Asthma: No Hx Chronic Obstructive Pulmonary Disease (COPD): No Hx Cancer: No Hx Cardiac Disorders: No Hx Congestive Heart Failure: No Hx Hypertension: No Hx Hypercholesterolemia: No Hx Pacemaker: No HX Cerebrovascular Accident: No Hx Seizures: No Hx Dementia: No Hx Diabetes: No Hx Gastrointestinal Disorders: No Hx Liver Disease: No Hx Genitourinary Disorders: No Hx Sexually Transmitted Disorders: No Hx Renal Disease (ESRD): No Hx Thyroid Disease: No Hx Human Immunodeficiency Virus (HIV): No (NEGATIVE HX 09/16) Hx Hepatitis C: No Hx Depression: Yes Hx Suicide Attempt: Yes (cut both wrists with a piece of glass at age 32) Hx Bipolar Disorder: Yes (no med) Hx Schizophrenia: No - Patient Surgical History Past Surgical History: No Hx Neurologic Surgery: No Hx Cataract Extraction: No Hx Cardiac Surgery: No Hx Lung Surgery: No Hx Breast Surgery: No Hx Breast Biopsy: No Hx Abdominal Surgery: No Hx Appendectomy: No Hx Cholecystectomy: No Hx Genitourinary Surgery: No Hx Section: No Hx Orthopedic Surgery: No Hx Hysterectomy: No Anesthesia Reaction: No - PPD History Previous Implant?: No Documented Results: Negative w/proof Date: 04/04/18 Results: 0 mm PPD to be Administered?: No - Reproductive History Patient is a Female of Child Bearing Age (11 -55 yrs old): No Last Menstrual Period: 07/12/09 - Smoking Cessation Smoking history: Current every day smoker Have you smoked in the past 12 months: No Aproximately how many cigarettes per day: 10 Cigars Per Day: 0 Hx Chewing Tobacco Use: No Initiated information on smoking cessation: Yes 'Breaking Loose' booklet given: 08/27/18 - Substance & Tx. History Hx Alcohol Use: No Hx Substance Use: Yes Substance Use Type: Cocaine Hx Substance Use Treatment: Yes ([facility] June 2018) - Substances abused Alcohol Substance route: Oral Frequency: 1-2 times per week Amount used: 1 x 24 oz Age of first use: 17 Date of last use: 08/26/18 Crack Substance route: Smoking Frequency: Daily Amount used: $50-$100 Age of first use: 23 Date of last use: 08/25/18 Family Disease History - Family Disease History Family Disease History: CA: Mother (breast cancer,), Other: Father ( alcohol ), Mother, Brother (alcoholic), Sister (alcoholic) Admission Physical Exam S - Vital Signs Vital Signs: Vital Signs - 24 hr 08/27/18 14:51 Temperature 97.2 F L Pulse Rate 66 Respiratory 20 Rate Blood Pressure 142/72 - Physical General Appearance: Yes: Disheveled, Thin, Irritable HEENTM: Yes: EOMI, Hearing grossly Normal, Normal ENT Inspection, Normocephalic , Normal Voice, LUPE, Pharynx Normal, Tm's normal, Other (edentulous) Respiratory: Yes: Chest Non-Tender, Lungs Clear, Normal Breath Sounds, No Respiratory Distress, No Accessory Muscle Use Neck: Yes: Within Normal Limits Breast: Yes: Breast Exam Deferred Cardiology: Yes: Regular Rhythm, Regular Rate Abdominal: Yes: Normal Bowel Sounds, Non Tender, Flat, Soft Genitourinary: Yes: Within Normal Limits Back: Yes: Normal Inspection Musculoskeletal: Yes: full range of Motion, Gait Steady, Pelvis Stable Extremities: Yes: Normal Capillary Refill, Normal Inspection, Normal Range of Motion, Non-Tender 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: operating system designer II-XII NML intact, Fully Oriented, Alert, Motor Strength 5/5, Depressed Affect Integumentary: Yes: Normal Color, Dry, Warm, Other (tinea pedis bilateral) Lymphatic: Yes: Within Normal Limits - Diagnostic (1) Psychiatric disorder Current Visit: Yes Status: Suspected (2) Alcohol dependence with uncomplicated withdrawal Current Visit: Yes Status: Acute (3) Weight loss Current Visit: Yes Status: Acute (4) Arthritis of right knee Current Visit: Yes Status: Chronic (5) Cocaine dependence, uncomplicated Current Visit: Yes Status: Chronic (6) Essential hypertension Current Visit: Yes Status: Chronic (7) Nicotine dependence Current Visit: Yes Status: Chronic Qualifiers: Nicotine product type: cigarettes Substance use status: uncomplicated Qualified Code(s): F17.210 - Nicotine dependence, cigarettes, uncomplicated Breathalyzer - Breathalyzer Breathalyzer: 0 POC Urine test - Control test control: Yes Urine Drug Screen - Test Device Lot number: [id number] Expiration date: 04/30/20 - Control Is test valid?: Yes - Results Drug screen NEGATIVE: No Urine drug screen results: [facility]-Cocaine Inpatient Rehab Admission - Rehab Decision to Admit Inpatient rehab admission?: Yes - Initial Determination Are CD services needed?: Yes Free of communicable disease: Yes Not in need of hospitalization: Yes - Rehab Admission Criteria Previous failed treatment: Yes Poor recovery environment: Yes Comorbidities: Yes Lacks judgement: Yes Patient is meeting Inpatient Rehab admission criteria:: Yes
[2018-08-27] MEDS: THIAMINE HCL 100 MG TABLET (FP) PO SCH (21:24)
[2018-08-28 09:12] LABS: EPI CELLS 8.1 /HPF (0-5/HPF); HYALINE CASTS 20 /lpf (0-8); PH,URINE 5.5 (5.0-8.0); URINE APPEARANCE TURBID; URINE BILIRUBIN NEGATIVE (NEGATIVE); URINE COLOR YELLOW; URINE GLUCOSE (UA) NEGATIVE (NEGATIVE); URINE KETONE NEGATIVE (NEGATIVE); URINE LEUK ESTERASE 2+ (NEGATIVE); URINE NITRITE NEGATIVE (NEGATIVE); URINE PROTEIN 1+ (NEGATIVE); URINE RBC 7 /hpf (0-4); URINE WBC 48 /hpf (0-5)
--- NOTE | 2018-08-28 10:44 | PN ---
[facility] Progress Note Note: PT IS A NEW PATIENT ADMITTED TO REHAB YESTERDAY FROM [facility]-ADMISSIONS. NURSE REPORTS THAT PT REFUSED LABS BE DRAWN THIS MORNING. PT WAS SEEN IN HER ROOM THIS AFTERNOON AND SPOKEN TO BY REIMBURSEMENT REPRESENTATIVE AND HER COUNSELOR, MS. NUZHAT RUFF RE:BLOOD WORK REFUSAL. PT WAS RECEPTIVE AGREEING TO DO IT IN A.M. Vital Signs (72 hours) 08/27/18 08/28/18 08/28/18 14:51 00:30 03:30 Temperature 97.2 F L Pulse Rate 66 Respiratory 20 18 18 Rate Blood Pressure 142/72 08/28/18 06:50 Temperature Pulse Rate Respiratory 18 Rate Blood Pressure PLAN:SPOKE AND COUNSELLED PT WITH HER COUNSELOR. PT AGREES TO BLOOD WORK IN THE MORNING. REORDER CBC,CMP AND RPR FOR 08/29/18 AT 0600.
[2018-08-28] MEDS: NICOTINE 14 MG/24 HOURS TOPICAL PATCH TD SCH (11:18)
[2018-08-28] MEDS: PRENATAL VITAMINS W/ FOLIC ACID TABLET (FP) PO SCH (11:18)
[2018-08-28] MEDS: HYDROCHLOROTHIAZIDE 25 MG TABLET (FP) PO SCH (11:18)
--- NOTE | 2018-08-28 13:43 | CONSULT ---
[facility] Psychiatric Consult - Data Date of interview: 08/28/18 Admission source: [facility] Identifying data: Pie Chef attempted to speak to patient concerning psychiatric consultation but patient refused. Nursing staff informed
[2018-08-28] MEDS: MELATONIN 5 MG TABLETS PO PRN (21:49)
[2018-08-28] MEDS: THIAMINE HCL 100 MG TABLET (FP) PO SCH (21:49)
[2018-08-29] MEDS: PRENATAL VITAMINS W/ FOLIC ACID TABLET (FP) PO SCH (09:56)
[2018-08-29] MEDS: HYDROCHLOROTHIAZIDE 25 MG TABLET (FP) PO SCH (09:56)
[2018-08-29] MEDS: NICOTINE 14 MG/24 HOURS TOPICAL PATCH TD SCH (09:57)
[2018-08-29 10:25] LABS: ALBUMIN 3.2 g/dl (3.4-5.0); BILIRUBIN,TOTAL 0.3 mg/dL (0.2-1); BLOOD UREA NITROGEN 16.9 mg/dL (7-18); CALCIUM 8.8 mg/dL (8.5-10.1); CREATININE 0.9 mg/dL (0.55-1.3); POTASSIUM 3.7 mmol/L (3.5-5.1); TOT PROT 6.1 g/dl (6.4-8.2)
[2018-08-29 10:39] LABS: HEMATOCRIT 37.1 % (32.4-45.2); HEMOGLOBIN 12.4 GM/dL (10.7-15.3); MCH 31.6 pg (25.7-33.7); MCHC 33.5 g/dl (32.0-36.0); MEAN CELL VOLUME 94.4 fl (80-96); RBC 3.94 M/mm3 (3.60-5.2); RDW 14.9 % (11.6-15.6); WHITE BLOOD COUNT 3.2 K/mm3 (4.0-10.0)
[2018-08-29 11:24] LABS: PLATELET COUNT 242 K/MM3 (134-434)
[2018-08-29] MEDS: MELATONIN 5 MG TABLETS PO PRN (21:48)
[2018-08-29] MEDS: THIAMINE HCL 100 MG TABLET (FP) PO SCH (21:48)
[2018-08-30 07:05] VITALS: TEMP 97.9
[2018-08-30] MEDS: PRENATAL VITAMINS W/ FOLIC ACID TABLET (FP) PO SCH (09:37)
[2018-08-30] MEDS: NICOTINE 14 MG/24 HOURS TOPICAL PATCH TD SCH (09:37)
[2018-08-30] MEDS: HYDROCHLOROTHIAZIDE 25 MG TABLET (FP) PO SCH (09:37)
[2018-08-30] MEDS: THIAMINE HCL 100 MG TABLET (FP) PO SCH (21:06)
[2018-08-30] MEDS: MELATONIN 5 MG TABLETS PO PRN (21:06)
[2018-08-31 09:05] VITALS: BP 137/89; PULSE 61
[2018-08-31] MEDS: PRENATAL VITAMINS W/ FOLIC ACID TABLET (FP) PO SCH (09:32)
[2018-08-31] MEDS: HYDROCHLOROTHIAZIDE 25 MG TABLET (FP) PO SCH (09:32)
[2018-08-31] MEDS: NICOTINE 14 MG/24 HOURS TOPICAL PATCH TD SCH (09:32)
--- NOTE | 2018-08-31 12:02 | PN ---
[facility] Progress Note Note: PATIENT SEEN DUE TO REQUEST TO SIGN OUT AMA. PATIENT STATED TO CHEMICAL RESEARCH WORKER " I DO NOT WANT TO STAY HERE!". CHEMICAL RESEARCH WORKER ENCOURAGED PATIENT TO COMPLETE TREATMENT AND EXPLAINED RISK FACTORS OF RELAPSE/OVERDOSE WITH SIGNING OUT AMA BUT PATIENT REFUSED TO STAY. PATIENT IS MEDICALLY STABLE AT THIS TIME AND DENIES SI/HI. PATIENT INFORMED PROVIDER SHE HAS HER HCTZ MEDICATION AT HOME AND DOES NOT NEED REFILL. PATIENT ENCOURAGE TO ATTEND GROUP MEETINGS/NA AND TO SEEK MEDICAL ATTENTION IF SYMPTOMS OF CHEST PAIN, SOB AND DIZZINESS OCCUR. Laboratory Tests 08/27/18 08/27/18 08/29/18 08:55 18:08 07:50 WBC 3.2 L RBC 3.94 Hgb 12.4 Hct 37.1 MCV 94.4 MCH 31.6 MCHC 33.5 RDW 14.9 Plt Count 242 D MPV 8.0 Sodium Potassium Chloride Carbon Dioxide Anion Gap BUN Creatinine Est GFR (CKD-EPI)AfAm Est GFR (CKD-EPI)NonAf Random Glucose Calcium Total Bilirubin AST ALT Alkaline Phosphatase Total Protein Albumin Urine Color Yellow Urine Appearance Turbid Urine pH 5.5 Ur Specific [place] 1.028 Urine Protein 1+ H Urine Glucose (UA) Negative Urine Ketones Negative Urine Blood 1+ H Urine Nitrite Negative Urine Bilirubin Negative Urine Urobilinogen 1.0 Ur Leukocyte Esterase 2+ H Urine WBC (Auto) 48 Urine RBC (Auto) 7 Urine Casts (Auto) 20 U Epithel Cells (Auto) 8.1 Urine Crystals (Auto) Urine Bacteria (Auto) 1724.0 POC Urine HCG, Qual Negative RPR Titer 08/29/18 08/29/18 07:50 07:50 WBC RBC Hgb Hct MCV MCH MCHC RDW Plt Count MPV Sodium 142 Potassium 3.7 Chloride 109 H Carbon Dioxide 29 Anion Gap 4 L BUN 16.9 Creatinine 0.9 Est GFR (CKD-EPI)AfAm 82.84 Est GFR (CKD-EPI)NonAf 71.48 Random Glucose 74 Calcium 8.8 Total Bilirubin 0.3 AST 12 L ALT 21 Alkaline Phosphatase 71 Total Protein 6.1 L Albumin 3.2 L Urine Color Urine Appearance Urine pH Ur Specific [place] Urine Protein Urine Glucose (UA) Urine Ketones Urine Blood Urine Nitrite Urine Bilirubin Urine Urobilinogen Ur Leukocyte Esterase Urine WBC (Auto) Urine RBC (Auto) Urine Casts (Auto) U Epithel Cells (Auto) Urine Crystals (Auto) Urine Bacteria (Auto) POC Urine HCG, Qual RPR Titer Nonreactive Vital Signs Temperature 97.9 F 08/30/18 07:04 Pulse Rate 61 08/31/18 09:05 Respiratory Rate 18 08/31/18 07:00 Blood Pressure 137/89 08/31/18 09:05 O2 Sat by Pulse Oximetry (%)
== END 2018-08-31 11:19 | disposition left against medical advice (07) | DRG 770 ==
LOC: YASAS 13:19 → Y3E 19:00
PROVIDERS: ADMIT Neuromusculoskeletal Medicine & OMM; ATTEND Neuromusculoskeletal Medicine & OMM
PROC: HZ42ZZZ Group Counseling for Substance Abuse Treatment, Cognitive-Behavioral (ICD-10-PCS; principal; 2018-08-27)
DX: F10.20 Alcohol dependence, uncomplicated (principal); F14.20 Cocaine dependence, uncomplicated; F17.210 Nicotine dependence, cigarettes, uncomplicated; F99 Mental disorder, not otherwise specified; I10 Essential (primary) hypertension; R63.4 Abnormal weight loss; M17.11 Unilateral primary osteoarthritis, right knee; Z95.1 Presence of aortocoronary bypass graft; Z91.5 Personal history of self-harm
CPT/HCPCS: 36415; 80053; 81003; 81025; 85027; 86593

== ENCOUNTER 2019-02-02 10:35 | Inpatient (IN) | payer OTHER ==
[2019-02-02 10:51] VITALS: BMI 22.4
--- NOTE | 2019-02-02 12:49 | HP ---
CIWA Score Nausea/Vomitin-No Nausea/No Vomiting Muscle Tremors: None Anxiety: 0-No Anxiety, at Ease Agitation: 0-Normal Activity Paroxysmal Sweats: No Perspiration Orientation: 0-Oriented Tacttile Disturbances: 0-None Auditory Disturbances: 0-None Visual Disturbances: 0-None Headache: 2-Mild CIWA-Ar Total Score: 2 - Admission Criteria OASAS Guidelines: Admission for Medically Managed Detox: Requires at least one of the followin. CIWA greater than 12 2. Seizures within the past 24 hours 3. Delirium tremens within the past 24 hours 4. Hallucinations within the past 24 hours 5. Acute intervention needed for co occurring medical disorder 6. Acute intervention needed for co occurring psychiatric disorder 7. Severe withdrawal that cannot be handled at a lower level of care (continued vomiting, continued diarrhea, abnormal vital signs) requiring intravenous medication and/or fluids 8. Admitting History and Physical - Past Medical History ...LMP: 07/12/09 - Smoking History Smoking history: Current every day smoker Have you smoked in the past 12 months: No Aproximately how many cigarettes per day: 10 - Alcohol/Substance Use Hx Alcohol Use: No Admission ROS [facility] Allergies/Adverse Reactions: Allergies Allergy/AdvReac Type Severity Reaction Status Date / Time tomato [Tomato] Allergy Severe Hives Verified 02/02/19 10:48 No Known Drug Allergies Allergy Verified 02/02/19 10:48 FRESH TOMATOES Allergy Severe Hives Uncoded 02/02/19 10:48 History of Present Illness: pt here requesting rehab from etoh use , reprots 2 x 6-pk daily , denies blackouts,s eizures, tremors , latest use yesterday . cocaine :via smoking 100 $/day tobacco : /2 ppd- 1 ppd PMHX: HTN, Psych: bipolar, depression. Denies SI/HI Exam Limitations: No Limitations - Ebola screening Have you traveled outside of the country in the last 21 days: No (N) Have you had contact with anyone from an Ebola affected area: No Do you have a fever: No - Review of Systems Constitutional: Loss of Appetite EENT: reports: Other (denies dysphagia , denies vision loss , edentulous did not bring dentures) Respiratory: reports: No Symptoms reported Cardiac: reports: No Symptoms Reported GI: reports: Diarrhea (x 2 days) : reports: No Symptoms Reported Musculoskeletal: reports: Other (foot pain bilateral reports walking a lot in the last few days) Integumentary: reports: No Symptoms Reported Neuro: reports: Headache Endocrine: reports: No Symptoms Reported Psychiatric: reports: Orientated x3 Patient History - Patient Medical History Hx Anemia: No Hx Asthma: No Hx Chronic Obstructive Pulmonary Disease (COPD): No Hx Cancer: No Hx Cardiac Disorders: No Hx Congestive Heart Failure: No Hx Hypertension: No Hx Hypercholesterolemia: No Hx Pacemaker: No HX Cerebrovascular Accident: No Hx Seizures: No Hx Dementia: No Hx Diabetes: No Hx Gastrointestinal Disorders: No Hx Liver Disease: No Hx Genitourinary Disorders: No Hx Sexually Transmitted Disorders: No Hx Renal Disease (ESRD): No Hx Thyroid Disease: No Hx Human Immunodeficiency Virus (HIV): No (NEGATIVE HX 09/16) Hx Hepatitis C: No Hx Depression: Yes Hx Suicide Attempt: No Hx Bipolar Disorder: Yes (no med) Hx Schizophrenia: No - Patient Surgical History Past Surgical History: No Hx Neurologic Surgery: No Hx Cataract Extraction: No Hx Cardiac Surgery: No Hx Lung Surgery: No Hx Breast Surgery: No Hx Breast Biopsy: No Hx Abdominal Surgery: No Hx Appendectomy: No Hx Cholecystectomy: No Hx Genitourinary Surgery: No Hx Section: No Hx Orthopedic Surgery: No Hx Hysterectomy: No Anesthesia Reaction: No - PPD History Date: 04/04/18 Results: 0 mm - Reproductive History Last Menstrual Period: 07/12/09 - Smoking Cessation Smoking history: Current every day smoker Have you smoked in the past 12 months: No Aproximately how many cigarettes per day: 10 Cigars Per Day: 0 Hx Chewing Tobacco Use: No Initiated information on smoking cessation: Yes 'Breaking Loose' booklet given: 02/02/19 - Substances abused Alcohol Substance route: Oral Frequency: Daily Amount used: 6 pk and half of beer Age of first use: 17 Date of last use: 02/01/19 Crack Substance route: Smoking Frequency: Daily Amount used: $100 or more Age of first use: 23 Date of last use: 02/01/19 Admission Physical Exam [facility] - Vital Signs Vital Signs: Vital Signs - 24 hr 02/02/19 10:49 Temperature 98.1 F Pulse Rate 60 Respiratory 18 Rate Blood Pressure 151/90 - Physical General Appearance: Yes: Mild Distress, Anxious HEENTM: Yes: EOMI, Hearing grossly Normal, Normocephalic, Normal Voice, Other ( edentulous) Respiratory: Yes: Chest Non-Tender, Lungs Clear, Normal Breath Sounds, No Respiratory Distress, No Accessory Muscle Use Neck: Yes: No masses,lesions,Nodules, Trachea in good position Cardiology: Yes: Regular Rhythm, Regular Rate, S1, S2 Abdominal: Yes: Non Tender, Soft Musculoskeletal: Yes: Gait Steady Extremities: Yes: Normal Range of Motion, Non-Tender 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: Fully Oriented, Alert, Motor Strength 5/5, Normal Mood/Affect Integumentary: Yes: Warm - Diagnostic (1) Alcohol dependence Current Visit: Yes Status: Chronic Qualifiers: Substance use status: uncomplicated Qualified Code(s): F10.20 - Alcohol dependence, uncomplicated (2) Cocaine dependence, uncomplicated Current Visit: Yes Status: Chronic (3) Nicotine dependence Current Visit: No Status: Chronic Qualifiers: Nicotine product type: cigarettes Substance use status: uncomplicated Qualified Code(s): F17.210 - Nicotine dependence, cigarettes, uncomplicated Breathalyzer - Breathalyzer Breathalyzer: 0 POC Urine test - Control test control: Yes Urine Drug Screen - Test Device Lot number: [id number] Expiration date: 09/30/20 - Control Is test valid?: Yes - Results Drug screen NEGATIVE: No Urine drug screen results: ISAEL-Cocaine Inpatient Rehab Admission - Rehab Decision to Admit Inpatient rehab admission?: Yes - Initial Determination Are CD services needed?: Yes Free of communicable disease: Yes Not in need of hospitalization: Yes - Rehab Admission Criteria Previous failed treatment: Yes Poor recovery environment: Yes Comorbidities: No Lacks judgement: Yes Patient is meeting Inpatient Rehab admission criteria:: Yes
[2019-02-02] MEDS ORDERED: MAG HYDROX/AL HYDROX/SIMETH 30 ML UNIT-DOSE CUP PO PRN (13:16)
[2019-02-02] MEDS ORDERED: ACETAMINOPHEN 325 MG TABLET (FP) PO PRN (13:16)
[2019-02-02] MEDS ORDERED: MAGNESIUM HYDROX 2400MG/30ML ORAL SUSPENSION 30 ML CUP PO PRN (13:16)
[2019-02-02] MEDS ORDERED: hydrOXYzine PAMOATE 25 MG CAPSULE (FP) PO PRN (13:16)
[2019-02-02] MEDS ORDERED: IBUPROFEN 400 MG TABLET (FP) PO PRN (13:16)
[2019-02-02] MEDS ORDERED: guaiFENesin 200 MG/10 ML 10 ML UNIT-DOSE CUPS PO PRN (13:16)
[2019-02-02] MEDS ORDERED: MAGNESIUM CITRATE 300 ML BOTTLE PO PRN (13:16)
[2019-02-02] MEDS ORDERED: LOPERAMIDE HCL 2 MG CAPSULE PO PRN (13:16)
[2019-02-02] MEDS ORDERED: P-EPHED 60MG/TRIPROLIDI 2.5MG TABLET PO PRN (13:16)
[2019-02-02] MEDS ORDERED: MENTHOL/PHENOL 1 EACH UD MM PRN (13:16)
--- NOTE | 2019-02-02 14:30 | PN ---
[facility] Progress Note Note: Pt is a 58 y/o female with a hx of BEKAH admitted to rehab from [facility]. Pt reports hx of HTN(takes hydrochlorothiazide),GERD(takes omeprazole0,environmental allergy and takes claritin. Pt reports she has no primary care provider but goes to [facility] for medical care. Pt instructed to register self at [facility] for primary care management after discharge. Vital Signs - 24 hr 02/02/19 02/02/19 10:49 14:25 Temperature 98.1 F 98.0 F Pulse Rate 60 59 L Respiratory 18 18 Rate Blood Pressure 151/90 144/87 Alert o x 3 nad oob ambulating with steady gait. A/P new pt admitted to rehab Reorder Hydrochlorothiazide 25 mg po daily Claritin 10 mg po daily Protonix 40 mg po daily Maintain safety
[2019-02-02] MEDS: HYDROCHLOROTHIAZIDE 25 MG TABLET (FP) PO SCH (15:02)
[2019-02-02 18:17] LABS: HEMATOCRIT 39.5 % (32.4-45.2); HEMOGLOBIN 13.1 GM/dL (10.7-15.3); MCH 31.2 pg (25.7-33.7); MCHC 33.1 g/dl (32.0-36.0); MEAN CELL VOLUME 94.4 fl (80-96); MEAN PLT VOLUME 8.7 fl (7.5-11.1); PLATELET COUNT 249 K/MM3 (134-434); RBC 4.19 M/mm3 (3.60-5.2); RDW 14.4 % (11.6-15.6); WHITE BLOOD COUNT 3.7 K/mm3 (4.0-10.0)
[2019-02-02 18:27] LABS: ALBUMIN 3.4 g/dl (3.4-5.0); BILIRUBIN,TOTAL 0.3 mg/dL (0.2-1); BLOOD UREA NITROGEN 23.7 mg/dL (7-18); CALCIUM 9.7 mg/dL (8.5-10.1); CREATININE 1.2 mg/dL (0.55-1.3); POTASSIUM 4.1 mmol/L (3.5-5.1); TOT PROT 6.9 g/dl (6.4-8.2)
[2019-02-02] MEDS: THIAMINE HCL 100 MG TABLET (FP) PO SCH (21:30)
[2019-02-02] MEDS ORDERED: LORATADINE 10 MG TABLET PO SCH (22:00)
[2019-02-02] MEDS ORDERED: MELATONIN 5 MG TABLETS PO PRN (22:00)
[2019-02-03] MEDS: PANTOPRAZOLE 40 MG TABLET (FP) PO SCH (10:36)
[2019-02-03] MEDS: PRENATAL VITAMINS W/ FOLIC ACID TABLET (FP) PO SCH (10:36)
[2019-02-03] MEDS: HYDROCHLOROTHIAZIDE 25 MG TABLET (FP) PO SCH (10:36)
[2019-02-03] MEDS: LORATADINE 10 MG TABLET PO SCH (10:36)
--- NOTE | 2019-02-03 17:46 | CONSULT ---
[facility] Psychiatric Consult - Data Date of interview: 02/03/19 Admission source: [facility] Identifying data: Patient is approached for psychiatric interview. Ms Ramires refused. Declined psychiatric evaluation. Witnessed by staff Marisa Dhaliwal.
[2019-02-03] MEDS: THIAMINE HCL 100 MG TABLET (FP) PO SCH (21:21)
[2019-02-04] MEDS: HYDROCHLOROTHIAZIDE 25 MG TABLET (FP) PO SCH (10:57)
[2019-02-04] MEDS: LORATADINE 10 MG TABLET PO SCH (10:57)
[2019-02-04] MEDS: PRENATAL VITAMINS W/ FOLIC ACID TABLET (FP) PO SCH (10:57)
[2019-02-04] MEDS: PANTOPRAZOLE 40 MG TABLET (FP) PO SCH (10:58)
[2019-02-04] MEDS: THIAMINE HCL 100 MG TABLET (FP) PO SCH (21:24)
[2019-02-05] MEDS: PRENATAL VITAMINS W/ FOLIC ACID TABLET (FP) PO SCH (10:23)
[2019-02-05] MEDS: PANTOPRAZOLE 40 MG TABLET (FP) PO SCH (10:23)
[2019-02-05] MEDS: HYDROCHLOROTHIAZIDE 25 MG TABLET (FP) PO SCH (10:23)
[2019-02-05] MEDS: LORATADINE 10 MG TABLET PO SCH (10:23)
[2019-02-05] MEDS: THIAMINE HCL 100 MG TABLET (FP) PO SCH (22:01)
[2019-02-06] MEDS: LORATADINE 10 MG TABLET PO SCH (09:28)
[2019-02-06] MEDS: PANTOPRAZOLE 40 MG TABLET (FP) PO SCH (09:28)
[2019-02-06] MEDS: HYDROCHLOROTHIAZIDE 25 MG TABLET (FP) PO SCH (09:28)
[2019-02-06] MEDS: PRENATAL VITAMINS W/ FOLIC ACID TABLET (FP) PO SCH (09:28)
[2019-02-06] MEDS: THIAMINE HCL 100 MG TABLET (FP) PO SCH (21:09)
[2019-02-07] MEDS: PANTOPRAZOLE 40 MG TABLET (FP) PO SCH (09:54)
[2019-02-07] MEDS: HYDROCHLOROTHIAZIDE 25 MG TABLET (FP) PO SCH (09:54)
[2019-02-07] MEDS: LORATADINE 10 MG TABLET PO SCH (09:54)
[2019-02-07] MEDS: PRENATAL VITAMINS W/ FOLIC ACID TABLET (FP) PO SCH (09:54)
[2019-02-07 18:12] LABS: EPI CELLS 2.2 /HPF (0-5/HPF); HYALINE CASTS 3 /lpf (0-8); URINE APPEARANCE CLEAR; URINE BACTERIA 2.9 /hpf (NEGATIVE); URINE BILIRUBIN NEGATIVE (NEGATIVE); URINE COLOR YELLOW; URINE GLUCOSE (UA) NEGATIVE (NEGATIVE); URINE KETONE NEGATIVE (NEGATIVE); URINE LEUK ESTERASE 2+ (NEGATIVE); URINE NITRITE NEGATIVE (NEGATIVE); URINE PROTEIN NEGATIVE (NEGATIVE); URINE RBC 2 /hpf (0-4); URINE UROBILINOGEN 0.2 mg/dL (0.2-1.0); URINE WBC 7 /hpf (0-5)
[2019-02-07] MEDS: THIAMINE HCL 100 MG TABLET (FP) PO SCH (21:44)
[2019-02-08] MEDS: PANTOPRAZOLE 40 MG TABLET (FP) PO SCH (10:15)
[2019-02-08] MEDS: PRENATAL VITAMINS W/ FOLIC ACID TABLET (FP) PO SCH (10:15)
[2019-02-08] MEDS: HYDROCHLOROTHIAZIDE 25 MG TABLET (FP) PO SCH (10:15)
[2019-02-08] MEDS: LORATADINE 10 MG TABLET PO SCH (10:15)
[2019-02-08] MEDS: THIAMINE HCL 100 MG TABLET (FP) PO SCH (21:46)
[2019-02-09] MEDS: HYDROCHLOROTHIAZIDE 25 MG TABLET (FP) PO SCH (10:26)
[2019-02-09] MEDS: PANTOPRAZOLE 40 MG TABLET (FP) PO SCH (10:26)
[2019-02-09] MEDS: PRENATAL VITAMINS W/ FOLIC ACID TABLET (FP) PO SCH (10:26)
[2019-02-09] MEDS: LORATADINE 10 MG TABLET PO SCH (10:26)
[2019-02-09] MEDS: THIAMINE HCL 100 MG TABLET (FP) PO SCH (21:45)
[2019-02-10] MEDS: HYDROCHLOROTHIAZIDE 25 MG TABLET (FP) PO SCH (09:18)
[2019-02-10] MEDS: PANTOPRAZOLE 40 MG TABLET (FP) PO SCH (09:18)
[2019-02-10] MEDS: PRENATAL VITAMINS W/ FOLIC ACID TABLET (FP) PO SCH (09:19)
[2019-02-10] MEDS: LORATADINE 10 MG TABLET PO SCH (09:19)
[2019-02-10] MEDS ORDERED: COLLOIDAL OATMEAL 1 BAR EACH TP PRN (13:00)
[2019-02-10] MEDS: THIAMINE HCL 100 MG TABLET (FP) PO SCH (21:47)
[2019-02-11 07:44] VITALS: TEMP 98.3
[2019-02-11] MEDS: PRENATAL VITAMINS W/ FOLIC ACID TABLET (FP) PO SCH (10:17)
[2019-02-11] MEDS: PANTOPRAZOLE 40 MG TABLET (FP) PO SCH (10:17)
[2019-02-11] MEDS: HYDROCHLOROTHIAZIDE 25 MG TABLET (FP) PO SCH (10:17)
[2019-02-11] MEDS: LORATADINE 10 MG TABLET PO SCH (10:17)
[2019-02-11] MEDS: THIAMINE HCL 100 MG TABLET (FP) PO SCH (22:10)
[2019-02-12 09:43] VITALS: BP 109/69; PULSE 64
[2019-02-12] MEDS: LORATADINE 10 MG TABLET PO SCH (10:15)
[2019-02-12] MEDS: HYDROCHLOROTHIAZIDE 25 MG TABLET (FP) PO SCH (10:15)
[2019-02-12] MEDS: PRENATAL VITAMINS W/ FOLIC ACID TABLET (FP) PO SCH (10:15)
[2019-02-12] MEDS: PANTOPRAZOLE 40 MG TABLET (FP) PO SCH (10:15)
--- NOTE | 2019-02-12 13:31 | DS ---
[facility] Rehab Discharge Summary - [facility] Rehab Discharge Summary Admission Date: 02/02/19 Discharge Date: 02/12/19 - History Present History: Alcohol dependence, Cocaine dependence Pertinent Past History: ptwith etoh use 2 x 6-pk daily, denies blackouts,seizures, tremors cocaine :via smoking 100 $/day tobacco : 03/04 ppd- 1 ppd PMHX: HTN, Psych: bipolar, depression. Denies SI/HI - Discharge Physical Exam Vital Signs: Vital Signs Temperature 98.3 F 02/11/19 07:42 Pulse Rate 64 02/12/19 09:42 Respiratory Rate 18 02/12/19 07:17 Blood Pressure 109/69 02/12/19 09:42 O2 Sat by Pulse Oximetry (%) Pertinent Admission Physical Exam Findings: - Physical General Appearance: No apparent distress HEENTM: Normocephalic, edentulous Respiratory: Lungs Clear Neck: Supple, Trachea in good position Cardiology: S1, S2 Abdominal: +BS< Non Tender, Soft Musculoskeletal: Gait Steady,Range of Motion Neurological: CN2-12 intact, Motor Strength 5/5, - Treatment Discharge Condition: Outpatient referral accepted (WIll go to [facility] for aftercare. medically stable for discharge.) Hospital Course: Patient attended groups, had 1:1 meeting with psychiatric service, was adherent to her medication regimen and treatment plan. She did not have any urgent medical issues while in rehab. - Medication Discharge Medications: Ambulatory Orders Hydrochlorothiazide [Hctz -] 25 mg PO DAILY #30 tablet 09/17/15 Loratadine 10 mg PO HS 02/02/19 Omeprazole 20 mg PO DAILY 02/02/19 - Medication-Assisted Treatment (MAT) Medication-Assisted Treatment (MAT): No - Discharge Instructions Diet, activity, other medical instructions: Diet:as tolerated Activity: as tolerated Other medical instructions: Please keep aftercare referral. - Diagnosis (1) Alcohol dependence Current Visit: Yes Status: Chronic Qualifiers: Substance use status: uncomplicated Qualified Code(s): F10.20 - Alcohol dependence, uncomplicated (2) Cocaine dependence, uncomplicated Current Visit: Yes Status: Chronic - Follow-up Referral Minutes to complete discharge: 20 - AMA Did Patient Leave Against Medical Advice: No
== END 2019-02-12 13:56 | disposition home or self-care (01) | DRG 772 ==
LOC: YASAS 10:35 → Y3E 13:33
PROVIDERS: ADMIT Neuromusculoskeletal Medicine & OMM; ATTEND Neuromusculoskeletal Medicine & OMM
PROC: HZ42ZZZ Group Counseling for Substance Abuse Treatment, Cognitive-Behavioral (ICD-10-PCS; principal; 2019-02-02)
DX: F10.20 Alcohol dependence, uncomplicated (principal); F14.20 Cocaine dependence, uncomplicated; F17.210 Nicotine dependence, cigarettes, uncomplicated; Z91.018 Allergy to other foods
CPT/HCPCS: 36415; 80053; 81003; 85027; 86593

== ENCOUNTER 2021-08-05 13:58 | Inpatient (IN) | payer OTHER ==
[2021-08-05 16:24] VITALS: BMI 29.6
[2021-08-05] MEDS ORDERED: ONDANSETRON *ODT* 4 MG TABLET SL PRN (17:51)
[2021-08-05] MEDS ORDERED: NICOTINE 10 MG CARTRIDGE (INHALER) IH PRN (17:51)
[2021-08-05] MEDS ORDERED: chlordiazePOXIDE HCL 25 MG CAPSULE PO PRN (17:51)
[2021-08-05] MEDS ORDERED: ACETAMINOPHEN 325 MG TABLET (FP) PO PRN ×2 (17:51)
[2021-08-05] MEDS ORDERED: MAGNESIUM CITRATE 300 ML BOTTLE PO PRN (17:51)
[2021-08-05] MEDS ORDERED: LOPERAMIDE HCL 2 MG CAPSULE PO PRN (17:51)
[2021-08-05] MEDS ORDERED: MAG HYDROX/AL HYDROX/SIMETH 30 ML UNIT-DOSE CUP PO PRN (17:51)
[2021-08-05] MEDS ORDERED: BENZOCAINE/MENTHOL (CHLORASEPTIC ) LOZENGE MM PRN (17:51)
[2021-08-05] MEDS ORDERED: BISMUTH SUBSALICYLATE 524 MG/30 ML PO PRN (17:51)
[2021-08-05] MEDS ORDERED: DICYCLOMINE HCL 10 MG CAPSULE PO PRN (17:51)
[2021-08-05] MEDS ORDERED: IBUPROFEN 600 MG TABLET (FP) PO PRN (17:51)
[2021-08-05] MEDS ORDERED: METHOCARBAMOL 500 MG TABLET PO PRN (17:51)
[2021-08-05] MEDS ORDERED: MAGNESIUM HYDROX 2400MG/30ML ORAL SUSPENSION 30 ML CUP PO PRN (17:51)
[2021-08-05] MEDS ORDERED: cloNIDine HCL 0.1 MG TABLET PO ONE (17:56)
[2021-08-05] MEDS ORDERED: hydrOXYzine PAMOATE 25 MG CAPSULE (FP) PO SCH (18:00)
[2021-08-05] MEDS: HYDROCHLOROTHIAZIDE 25 MG TABLET (FP) PO SCH (20:20)
[2021-08-05] MEDS: FAMOTIDINE 20 MG TABLET PO SCH (22:49)
[2021-08-05] MEDS: THIAMINE HCL 100 MG TABLET (FP) PO SCH (22:49)
[2021-08-05] MEDS: chlordiazePOXIDE HCL 25 MG CAPSULE PO SCH (22:49)
[2021-08-05] MEDS: MELATONIN 5 MG TABLETS PO SCH (22:49)
[2021-08-05] MEDS: HYDROCORTISONE 0.5% TOPICAL CREAM 30 GM TUBE TP SCH (22:51)
[2021-08-06] MEDS: chlordiazePOXIDE HCL 25 MG CAPSULE PO SCH ×4 (06:16→22:36)
[2021-08-06 11:52] LABS: HEMATOCRIT 36.4 % (32.4-45.2); HEMOGLOBIN 11.9 GM/dL (10.7-15.3); MCH 27.8 pg (25.7-33.7); MCHC 32.7 g/dl (32.0-36.0); MEAN CELL VOLUME 85.2 fl (80-96); MEAN PLT VOLUME 8.4 fl (7.5-11.1); PLATELET COUNT 243 10^3/uL (134-434); RBC 4.27 M/mm3 (3.60-5.2); RDW 15.7 % (11.6-15.6); WHITE BLOOD COUNT 3.2 K/mm3 (4.0-10.0)
[2021-08-06] MEDS: HYDROCHLOROTHIAZIDE 25 MG TABLET (FP) PO SCH (11:56)
[2021-08-06] MEDS: PRENATAL VITAMINS W/ FOLIC ACID TABLET (FP) PO SCH (11:56)
[2021-08-06] MEDS: FAMOTIDINE 20 MG TABLET PO SCH ×2 (11:56→22:36)
[2021-08-06] MEDS: HYDROCORTISONE 0.5% TOPICAL CREAM 30 GM TUBE TP SCH ×2 (11:57→22:36)
[2021-08-06] MEDS: IBUPROFEN 400 MG TABLET (FP) PO PRN (11:57)
[2021-08-06 11:59] LABS: CALCIUM 9.2 mg/dL (8.5-10.1)
[2021-08-06] MEDS: amLODIPine BESYLATE 10 MG TABLET (FP) PO SCH (11:59)
[2021-08-06 12:01] LABS: ALBUMIN 3.3 g/dl (3.4-5.0); BLOOD UREA NITROGEN 14.1 mg/dL (7-18)
[2021-08-06 12:02] LABS: CREATININE 1.1 mg/dL (0.55-1.3)
[2021-08-06 12:04] LABS: BILIRUBIN,TOTAL 0.3 mg/dL (0.2-1); TOT PROT 6.2 g/dl (6.4-8.2)
[2021-08-06] MEDS: MELATONIN 5 MG TABLETS PO SCH (22:36)
[2021-08-06] MEDS: THIAMINE HCL 100 MG TABLET (FP) PO SCH (22:36)
[2021-08-07] MEDS: chlordiazePOXIDE HCL 25 MG CAPSULE PO SCH ×4 (05:58→22:23)
[2021-08-07] MEDS: HYDROCHLOROTHIAZIDE 25 MG TABLET (FP) PO SCH (10:45)
[2021-08-07] MEDS: HYDROCORTISONE 0.5% TOPICAL CREAM 30 GM TUBE TP SCH ×2 (10:45→22:18)
[2021-08-07] MEDS: amLODIPine BESYLATE 10 MG TABLET (FP) PO SCH (10:45)
[2021-08-07] MEDS: PRENATAL VITAMINS W/ FOLIC ACID TABLET (FP) PO SCH (10:45)
[2021-08-07] MEDS: FAMOTIDINE 20 MG TABLET PO SCH ×2 (10:46→22:18)
[2021-08-07] MEDS: IBUPROFEN 400 MG TABLET (FP) PO PRN (10:46)
[2021-08-07] MEDS: MELATONIN 5 MG TABLETS PO SCH (22:23)
[2021-08-07] MEDS: THIAMINE HCL 100 MG TABLET (FP) PO SCH (22:23)
[2021-08-08] MEDS ORDERED: chlordiazePOXIDE HCL 10 MG CAPSULE PO PRN
[2021-08-08] MEDS: chlordiazePOXIDE HCL 10 MG CAPSULE PO SCH ×2 (05:51→10:42)
[2021-08-08 09:43] VITALS: BP 159/88; PULSE 66; TEMP 97.7
[2021-08-08] MEDS: amLODIPine BESYLATE 10 MG TABLET (FP) PO SCH (09:51)
[2021-08-08] MEDS: PRENATAL VITAMINS W/ FOLIC ACID TABLET (FP) PO SCH (09:51)
[2021-08-08] MEDS: HYDROCHLOROTHIAZIDE 25 MG TABLET (FP) PO SCH (09:51)
[2021-08-08] MEDS: FAMOTIDINE 20 MG TABLET PO SCH (09:51)
[2021-08-08] MEDS: HYDROCORTISONE 0.5% TOPICAL CREAM 30 GM TUBE TP SCH (09:52)
[2021-08-09] MEDS ORDERED: chlordiazePOXIDE HCL 10 MG CAPSULE PO SCH (05:00)
[2021-08-10] MEDS ORDERED: chlordiazePOXIDE HCL 10 MG CAPSULE PO ONE (05:00)
== END 2021-08-08 09:55 | disposition home or self-care (01) | DRG 774 ==
LOC: YASAS 13:58 → Y6N 18:36
PROVIDERS: ADMIT Allergy & Immunology; ATTEND Surgery
PROC: HZ2ZZZZ Detoxification Services for Substance Abuse Treatment (ICD-10-PCS; principal; 2021-08-05)
DX: F10.230 Alcohol dependence with withdrawal, uncomplicated (principal); F14.20 Cocaine dependence, uncomplicated; F12.20 Cannabis dependence, uncomplicated; F17.210 Nicotine dependence, cigarettes, uncomplicated; F41.9 Anxiety disorder, unspecified; F32.A Depression, unspecified; I10 Essential (primary) hypertension; K21.9 Gastro-esophageal reflux disease without esophagitis; M17.11 Unilateral primary osteoarthritis, right knee; K08.109 Complete loss of teeth, unspecified cause, unspecified class; L25.9 Unspecified contact dermatitis, unspecified cause; Z86.19 Personal history of other infectious and parasitic diseases; Z56.0 Unemployment, unspecified
CPT/HCPCS: 36415; 80053; 85027; 86593; 86780; 93005; 93010; C9803-CS; J0735; U0003; U0005

== ENCOUNTER 2021-09-04 07:09 | Inpatient (IN) | payer OTHER ==
[2021-09-04 08:59] VITALS: BMI 29.3
[2021-09-04] MEDS ORDERED: MAGNESIUM CITRATE 300 ML BOTTLE PO PRN (09:02)
[2021-09-04] MEDS ORDERED: MAG HYDROX/AL HYDROX/SIMETH 30 ML UNIT-DOSE CUP PO PRN (09:02)
[2021-09-04] MEDS ORDERED: DICYCLOMINE HCL 10 MG CAPSULE PO PRN (09:02)
[2021-09-04] MEDS ORDERED: IBUPROFEN 600 MG TABLET (FP) PO PRN (09:02)
[2021-09-04] MEDS ORDERED: BENZOCAINE/MENTHOL (CHLORASEPTIC ) LOZENGE MM PRN (09:02)
[2021-09-04] MEDS ORDERED: MAGNESIUM HYDROX 2400MG/30ML ORAL SUSPENSION 30 ML CUP PO PRN (09:02)
[2021-09-04] MEDS ORDERED: NICOTINE 10 MG CARTRIDGE (INHALER) IH PRN (09:02)
[2021-09-04] MEDS ORDERED: ONDANSETRON *ODT* 4 MG TABLET SL PRN (09:02)
[2021-09-04] MEDS ORDERED: IBUPROFEN 400 MG TABLET (FP) PO PRN (09:02)
[2021-09-04] MEDS ORDERED: LOPERAMIDE HCL 2 MG CAPSULE PO PRN (09:02)
[2021-09-04] MEDS ORDERED: ACETAMINOPHEN 325 MG TABLET (FP) PO PRN ×2 (09:02)
[2021-09-04] MEDS ORDERED: BISMUTH SUBSALICYLATE 524 MG/30 ML PO PRN (09:02)
[2021-09-04] MEDS ORDERED: LORazepam 1 MG TABLET PO PRN (09:02)
[2021-09-04] MEDS: PRENATAL VITAMINS W/ FOLIC ACID TABLET (FP) PO SCH (10:58)
[2021-09-04] MEDS: METHOCARBAMOL 500 MG TABLET PO PRN ×2 (10:59→18:26)
[2021-09-04] MEDS: amLODIPine BESYLATE 10 MG TABLET (FP) PO SCH (10:59)
[2021-09-04] MEDS: FAMOTIDINE 20 MG TABLET PO SCH ×2 (10:59→23:21)
[2021-09-04] MEDS: HYDROCHLOROTHIAZIDE 25 MG TABLET (FP) PO SCH (10:59)
[2021-09-04] MEDS: hydrOXYzine PAMOATE 25 MG CAPSULE (FP) PO SCH ×4 (10:59→23:21)
[2021-09-04] MEDS: NICOTINE 14 MG/24 HOURS TOPICAL PATCH TD SCH (10:59)
[2021-09-04] MEDS: LORazepam 2 MG TABLET PO SCH ×3 (10:59→23:21)
[2021-09-04] MEDS: THIAMINE HCL 100 MG TABLET (FP) PO SCH (23:21)
[2021-09-04] MEDS: MELATONIN 5 MG TABLETS PO SCH (23:21)
[2021-09-05] MEDS: LORazepam 2 MG TABLET PO SCH ×4 (06:26→23:16)
[2021-09-05] MEDS: hydrOXYzine PAMOATE 25 MG CAPSULE (FP) PO SCH ×5 (06:27→23:16)
[2021-09-05 08:27] LABS: HEMOGLOBIN 13.5 GM/dL (10.7-15.3); MCH 28.9 pg (25.7-33.7); MCHC 32.1 g/dl (32.0-36.0); MEAN CELL VOLUME 90.1 fl (80-96); MEAN PLT VOLUME 8.3 fl (7.5-11.1); PLATELET COUNT 262 10^3/uL (134-434); RBC 4.66 M/mm3 (3.60-5.2); RDW 18.5 % (11.6-15.6); WHITE BLOOD COUNT 5.9 K/mm3 (4.0-10.0)
[2021-09-05 08:37] LABS: ALBUMIN 3.5 g/dl (3.4-5.0); BLOOD UREA NITROGEN 22.5 mg/dL (7-18); CALCIUM 9.3 mg/dL (8.5-10.1)
[2021-09-05 08:40] LABS: CREATININE 1.3 mg/dL (0.55-1.3)
[2021-09-05 08:42] LABS: BILIRUBIN,TOTAL 0.7 mg/dL (0.2-1)
[2021-09-05] MEDS: FAMOTIDINE 20 MG TABLET PO SCH ×2 (10:55→23:16)
[2021-09-05] MEDS: NICOTINE 14 MG/24 HOURS TOPICAL PATCH TD SCH (10:55)
[2021-09-05] MEDS: HYDROCHLOROTHIAZIDE 25 MG TABLET (FP) PO SCH (10:55)
[2021-09-05] MEDS: PRENATAL VITAMINS W/ FOLIC ACID TABLET (FP) PO SCH (10:55)
[2021-09-05] MEDS: amLODIPine BESYLATE 10 MG TABLET (FP) PO SCH (10:55)
[2021-09-05] MEDS: MELATONIN 5 MG TABLETS PO SCH (23:16)
[2021-09-05] MEDS: THIAMINE HCL 100 MG TABLET (FP) PO SCH (23:21)
[2021-09-06] MEDS: LORazepam 1 MG TABLET PO SCH ×2 (05:42→10:21)
[2021-09-06] MEDS: hydrOXYzine PAMOATE 25 MG CAPSULE (FP) PO SCH ×3 (05:42→14:31)
[2021-09-06] MEDS: amLODIPine BESYLATE 10 MG TABLET (FP) PO SCH (10:21)
[2021-09-06] MEDS: HYDROCHLOROTHIAZIDE 25 MG TABLET (FP) PO SCH (10:21)
[2021-09-06] MEDS: PRENATAL VITAMINS W/ FOLIC ACID TABLET (FP) PO SCH (10:21)
[2021-09-06] MEDS: NICOTINE 14 MG/24 HOURS TOPICAL PATCH TD SCH (10:21)
[2021-09-06] MEDS: FAMOTIDINE 20 MG TABLET PO SCH ×2 (10:21→22:43)
[2021-09-06] MEDS ORDERED: diazePAM 5 MG TABLET PO SCH (22:00)
[2021-09-06] MEDS: MELATONIN 5 MG TABLETS PO SCH (22:43)
[2021-09-06] MEDS: THIAMINE HCL 100 MG TABLET (FP) PO SCH (22:43)
[2021-09-06] MEDS: hydrOXYzine PAMOATE 25 MG CAPSULE (FP) PO PRN (22:44)
[2021-09-07] MEDS ORDERED: LORazepam 0.5 MG TABLET PO PRN
[2021-09-07] MEDS ORDERED: LORazepam 0.5 MG TABLET PO SCH (05:00)
[2021-09-07] MEDS ORDERED: diazePAM 5 MG TABLET PO SCH (06:00)
[2021-09-07 09:37] VITALS: BP 131/71; PULSE 62; TEMP 98.7
[2021-09-07] MEDS: FAMOTIDINE 20 MG TABLET PO SCH (11:04)
[2021-09-07] MEDS: HYDROCHLOROTHIAZIDE 25 MG TABLET (FP) PO SCH (11:04)
[2021-09-07] MEDS: amLODIPine BESYLATE 10 MG TABLET (FP) PO SCH (11:04)
[2021-09-07] MEDS: PRENATAL VITAMINS W/ FOLIC ACID TABLET (FP) PO SCH (11:04)
[2021-09-07] MEDS: NICOTINE 14 MG/24 HOURS TOPICAL PATCH TD SCH (11:04)
[2021-09-07] MEDS: hydrOXYzine PAMOATE 25 MG CAPSULE (FP) PO PRN (11:05)
[2021-09-08] MEDS ORDERED: LORazepam 0.5 MG TABLET PO ONE (05:00)
[2021-09-08] MEDS ORDERED: diazePAM 5 MG TABLET PO ONE (06:00)
== END 2021-09-07 15:17 | disposition left against medical advice (07) | DRG 770 ==
LOC: YASAS 07:09 → Y6N 09:17
PROVIDERS: ADMIT Allergy & Immunology; ATTEND Surgery
PROC: HZ2ZZZZ Detoxification Services for Substance Abuse Treatment (ICD-10-PCS; principal; 2021-09-04)
DX: F10.230 Alcohol dependence with withdrawal, uncomplicated (principal); F14.20 Cocaine dependence, uncomplicated; F17.210 Nicotine dependence, cigarettes, uncomplicated; F31.9 Bipolar disorder, unspecified; F41.1 Generalized anxiety disorder; I10 Essential (primary) hypertension; K21.9 Gastro-esophageal reflux disease without esophagitis; M17.11 Unilateral primary osteoarthritis, right knee; L25.9 Unspecified contact dermatitis, unspecified cause; K08.109 Complete loss of teeth, unspecified cause, unspecified class
CPT/HCPCS: 36415; 80053; 85027; 86593; 86780; C9803-CS; U0003; U0005

== ENCOUNTER 2021-11-08 11:33 | Inpatient (IN) | payer OTHER ==
[2021-11-08 12:19] VITALS: BMI 24.7
[2021-11-08] MEDS ORDERED: ACETAMINOPHEN 325 MG TABLET (FP) PO PRN ×2 (15:16)
[2021-11-08] MEDS ORDERED: MAGNESIUM CITRATE 300 ML BOTTLE PO PRN (15:16)
[2021-11-08] MEDS ORDERED: BISMUTH SUBSALICYLATE 524 MG/30 ML PO PRN (15:16)
[2021-11-08] MEDS ORDERED: IBUPROFEN 400 MG TABLET (FP) PO PRN (15:16)
[2021-11-08] MEDS ORDERED: MAGNESIUM HYDROX 2400MG/30ML ORAL SUSPENSION 30 ML CUP PO PRN (15:16)
[2021-11-08] MEDS ORDERED: ONDANSETRON *ODT* 4 MG TABLET SL PRN (15:16)
[2021-11-08] MEDS ORDERED: IBUPROFEN 600 MG TABLET (FP) PO PRN (15:16)
[2021-11-08] MEDS ORDERED: METHOCARBAMOL 500 MG TABLET PO PRN (15:16)
[2021-11-08] MEDS ORDERED: NICOTINE 10 MG CARTRIDGE (INHALER) IH PRN (15:16)
[2021-11-08] MEDS ORDERED: diazePAM 5 MG TABLET PO PRN (15:16)
[2021-11-08] MEDS ORDERED: LOPERAMIDE HCL 2 MG CAPSULE PO PRN (15:16)
[2021-11-08] MEDS ORDERED: BENZOCAINE/MENTHOL (CHLORASEPTIC ) LOZENGE MM PRN (15:16)
[2021-11-08] MEDS ORDERED: MAG HYDROX/AL HYDROX/SIMETH 30 ML UNIT-DOSE CUP PO PRN (15:16)
[2021-11-08] MEDS ORDERED: DICYCLOMINE HCL 10 MG CAPSULE PO PRN (15:16)
[2021-11-08] MEDS: hydrOXYzine PAMOATE 25 MG CAPSULE (FP) PO SCH ×2 (18:45→23:10)
[2021-11-08] MEDS: PRENATAL VITAMINS W/ FOLIC ACID TABLET (FP) PO SCH (18:45)
[2021-11-08] MEDS: MELATONIN 5 MG TABLETS PO SCH (23:10)
[2021-11-08] MEDS: THIAMINE HCL 100 MG TABLET (FP) PO SCH (23:10)
[2021-11-09] MEDS: diazePAM 5 MG TABLET PO SCH ×5 (00:16→23:09)
[2021-11-09] MEDS: hydrOXYzine PAMOATE 25 MG CAPSULE (FP) PO SCH ×5 (05:55→23:09)
[2021-11-09] MEDS ORDERED: NALTREXONE MICROSPHERES (VIVITROL) 380 MG DISP.SYRIN IM ONE (06:00)
[2021-11-09 10:17] LABS: ALBUMIN 2.8 g/dl (3.4-5.0); BLOOD UREA NITROGEN 21.5 mg/dL (7-18); CALCIUM 8.7 mg/dL (8.5-10.1)
[2021-11-09 10:21] LABS: CREATININE 0.8 mg/dL (0.55-1.3)
[2021-11-09 10:22] LABS: BILIRUBIN,TOTAL 0.4 mg/dL (0.2-1); TOT PROT 5.9 g/dl (6.4-8.2)
[2021-11-09 10:23] LABS: HEMATOCRIT 39.6 % (32.4-45.2); HEMOGLOBIN 13.4 GM/dL (10.7-15.3); MCH 31.7 pg (25.7-33.7); MCHC 33.9 g/dl (32.0-36.0); MEAN CELL VOLUME 93.5 fl (80-96); MEAN PLT VOLUME 8.1 fl (7.5-11.1); PLATELET COUNT 222 10^3/uL (134-434); RBC 4.23 M/mm3 (3.60-5.2); RDW 16.2 % (11.6-15.6); WHITE BLOOD COUNT 4.5 K/mm3 (4.0-10.0)
[2021-11-09] MEDS: PRENATAL VITAMINS W/ FOLIC ACID TABLET (FP) PO SCH (10:48)
[2021-11-09] MEDS ORDERED: cloNIDine HCL 0.1 MG TABLET PO PRN ×2 (13:42→13:44)
[2021-11-09] MEDS: MELATONIN 5 MG TABLETS PO SCH (23:09)
[2021-11-09] MEDS: THIAMINE HCL 100 MG TABLET (FP) PO SCH (23:10)
[2021-11-10] MEDS: hydrOXYzine PAMOATE 25 MG CAPSULE (FP) PO SCH ×4 (05:59→22:48)
[2021-11-10] MEDS: diazePAM 5 MG TABLET PO SCH ×3 (05:59→22:49)
[2021-11-10] MEDS: PRENATAL VITAMINS W/ FOLIC ACID TABLET (FP) PO SCH (13:52)
[2021-11-10] MEDS: THIAMINE HCL 100 MG TABLET (FP) PO SCH (22:48)
[2021-11-10] MEDS: MELATONIN 5 MG TABLETS PO SCH (22:48)
[2021-11-11] MEDS: diazePAM 5 MG TABLET PO SCH ×2 (06:01→20:11)
[2021-11-11] MEDS: hydrOXYzine PAMOATE 25 MG CAPSULE (FP) PO SCH ×5 (06:02→23:04)
[2021-11-11] MEDS ORDERED: POTASSIUM CHLORIDE ORAL LIQUID 20 MEQ/15 ML PO ONE ×2 (11:30→15:30)
[2021-11-11] MEDS: PRENATAL VITAMINS W/ FOLIC ACID TABLET (FP) PO SCH (12:09)
[2021-11-11] MEDS: LACTULOSE 20 GM/30 ML UDC (FOR ORAL USE ONLY) PO SCH ×2 (13:07→23:04)
[2021-11-11] MEDS: MELATONIN 5 MG TABLETS PO SCH (23:04)
[2021-11-11] MEDS: THIAMINE HCL 100 MG TABLET (FP) PO SCH (23:04)
[2021-11-12] MEDS ORDERED: diazePAM 5 MG TABLET PO ONE ×2 (06:00)
[2021-11-12] MEDS: LACTULOSE 20 GM/30 ML UDC (FOR ORAL USE ONLY) PO SCH (06:32)
[2021-11-12] MEDS: hydrOXYzine PAMOATE 25 MG CAPSULE (FP) PO SCH ×2 (06:32→10:51)
[2021-11-12 09:44] VITALS: BP 144/74; PULSE 58; RESP 16; TEMP 96.9
[2021-11-12] MEDS: PRENATAL VITAMINS W/ FOLIC ACID TABLET (FP) PO SCH (10:51)
== END 2021-11-12 12:50 | disposition other institution (70) | DRG 774 ==
LOC: YASAS 11:33 → Y6N 15:46
PROVIDERS: ADMIT Allergy & Immunology; ATTEND Surgery
PROC: HZ2ZZZZ Detoxification Services for Substance Abuse Treatment (ICD-10-PCS; principal; 2021-11-07)
DX: F10.230 Alcohol dependence with withdrawal, uncomplicated (principal); F14.20 Cocaine dependence, uncomplicated; F17.210 Nicotine dependence, cigarettes, uncomplicated; F31.9 Bipolar disorder, unspecified; F41.9 Anxiety disorder, unspecified; I10 Essential (primary) hypertension; K22.9 Disease of esophagus, unspecified; M17.11 Unilateral primary osteoarthritis, right knee; R79.89 Other specified abnormal findings of blood chemistry; Z86.19 Personal history of other infectious and parasitic diseases
CPT/HCPCS: 36415; 80053; 82140; 84132; 85027; 86593; 86780; C9803-CS; U0003; U0005

== ENCOUNTER 2021-11-12 13:02 | Inpatient (IN) | payer OTHER ==
[2021-11-12] MEDS ORDERED: MAGNESIUM CITRATE 300 ML BOTTLE PO PRN (13:51)
[2021-11-12] MEDS ORDERED: NICOTINE 10 MG CARTRIDGE (INHALER) IH PRN (13:51)
[2021-11-12] MEDS ORDERED: guaiFENesin 200 MG/10 ML 10 ML UNIT-DOSE CUPS PO PRN (13:51)
[2021-11-12] MEDS ORDERED: IBUPROFEN 400 MG TABLET (FP) PO PRN (13:51)
[2021-11-12] MEDS ORDERED: LOPERAMIDE HCL 2 MG CAPSULE PO PRN (13:51)
[2021-11-12] MEDS ORDERED: ACETAMINOPHEN 325 MG TABLET (FP) PO PRN (13:51)
[2021-11-12] MEDS ORDERED: NICOTINE POLACRILEX 2 MG GUM BC PRN (13:51)
[2021-11-12] MEDS ORDERED: MAGNESIUM HYDROX 2400MG/30ML ORAL SUSPENSION 30 ML CUP PO PRN (13:51)
[2021-11-12] MEDS: LACTULOSE 20 GM/30 ML UDC (FOR ORAL USE ONLY) PO SCH ×2 (15:55→21:50)
[2021-11-12 16:04] VITALS: RESP 18
[2021-11-12] MEDS: THIAMINE HCL 100 MG TABLET (FP) PO SCH (21:50)
[2021-11-12] MEDS: MELATONIN 5 MG TABLETS PO SCH (21:50)
[2021-11-13] MEDS: LACTULOSE 20 GM/30 ML UDC (FOR ORAL USE ONLY) PO SCH ×2 (07:56→15:08)
[2021-11-13] MEDS: PRENATAL VITAMINS W/ FOLIC ACID TABLET (FP) PO SCH (10:44)
[2021-11-13] MEDS: THIAMINE HCL 100 MG TABLET (FP) PO SCH (21:21)
[2021-11-13] MEDS: MELATONIN 5 MG TABLETS PO SCH (21:21)
[2021-11-13] MEDS: hydrOXYzine PAMOATE 25 MG CAPSULE (FP) PO PRN (21:21)
[2021-11-14] MEDS: PRENATAL VITAMINS W/ FOLIC ACID TABLET (FP) PO SCH (10:42)
[2021-11-14] MEDS: MELATONIN 5 MG TABLETS PO SCH (21:24)
[2021-11-14] MEDS: THIAMINE HCL 100 MG TABLET (FP) PO SCH (21:24)
[2021-11-14] MEDS: hydrOXYzine PAMOATE 25 MG CAPSULE (FP) PO PRN (21:25)
[2021-11-15] MEDS: PRENATAL VITAMINS W/ FOLIC ACID TABLET (FP) PO SCH (10:40)
[2021-11-15] MEDS: hydrOXYzine PAMOATE 25 MG CAPSULE (FP) PO PRN (21:30)
[2021-11-15] MEDS: THIAMINE HCL 100 MG TABLET (FP) PO SCH (21:30)
[2021-11-15] MEDS: MELATONIN 5 MG TABLETS PO SCH (21:30)
[2021-11-16] MEDS: MAG HYDROX/AL HYDROX/SIMETH 30 ML UNIT-DOSE CUP PO PRN ×2 (07:23→22:51)
[2021-11-16] MEDS: amLODIPine BESYLATE 10 MG TABLET (FP) PO SCH (10:39)
[2021-11-16] MEDS: FAMOTIDINE 20 MG TABLET PO SCH ×2 (10:40→21:39)
[2021-11-16] MEDS: PRENATAL VITAMINS W/ FOLIC ACID TABLET (FP) PO SCH (10:40)
[2021-11-16] MEDS: HYDROCHLOROTHIAZIDE 25 MG TABLET (FP) PO SCH (10:40)
[2021-11-16 16:29] LABS: PH,URINE 5.5 (5.0-8.0); URINE APPEARANCE CLEAR; URINE BILIRUBIN NEGATIVE (NEGATIVE); URINE COLOR YELLOW; URINE GLUCOSE (UA) NEGATIVE (NEGATIVE); URINE KETONE NEGATIVE (NEGATIVE); URINE LEUK ESTERASE NEGATIVE (NEGATIVE); URINE NITRITE NEGATIVE (NEGATIVE); URINE PROTEIN NEGATIVE (NEGATIVE); URINE UROBILINOGEN 0.2 mg/dL (0.2-1.0)
[2021-11-16] MEDS: THIAMINE HCL 100 MG TABLET (FP) PO SCH (21:39)
[2021-11-16] MEDS: MELATONIN 5 MG TABLETS PO SCH (21:39)
[2021-11-17] MEDS: PRENATAL VITAMINS W/ FOLIC ACID TABLET (FP) PO SCH (10:40)
[2021-11-17] MEDS: FAMOTIDINE 20 MG TABLET PO SCH ×2 (10:41→21:54)
[2021-11-17] MEDS: HYDROCHLOROTHIAZIDE 25 MG TABLET (FP) PO SCH (10:41)
[2021-11-17] MEDS: amLODIPine BESYLATE 10 MG TABLET (FP) PO SCH (10:41)
[2021-11-17] MEDS: MELATONIN 5 MG TABLETS PO SCH (21:54)
[2021-11-17] MEDS: THIAMINE HCL 100 MG TABLET (FP) PO SCH (21:54)
[2021-11-17] MEDS: hydrOXYzine PAMOATE 25 MG CAPSULE (FP) PO PRN (21:55)
[2021-11-18] MEDS: amLODIPine BESYLATE 10 MG TABLET (FP) PO SCH (10:22)
[2021-11-18] MEDS: FAMOTIDINE 20 MG TABLET PO SCH ×2 (10:22→21:57)
[2021-11-18] MEDS: PRENATAL VITAMINS W/ FOLIC ACID TABLET (FP) PO SCH (10:22)
[2021-11-18] MEDS: HYDROCHLOROTHIAZIDE 25 MG TABLET (FP) PO SCH (10:22)
[2021-11-18] MEDS: MELATONIN 5 MG TABLETS PO SCH (21:57)
[2021-11-18] MEDS: THIAMINE HCL 100 MG TABLET (FP) PO SCH (21:57)
[2021-11-18] MEDS: hydrOXYzine PAMOATE 25 MG CAPSULE (FP) PO PRN (21:57)
[2021-11-19] MEDS: FAMOTIDINE 20 MG TABLET PO SCH ×2 (10:53→21:30)
[2021-11-19] MEDS: PRENATAL VITAMINS W/ FOLIC ACID TABLET (FP) PO SCH (10:53)
[2021-11-19] MEDS: amLODIPine BESYLATE 10 MG TABLET (FP) PO SCH (10:54)
[2021-11-19] MEDS: HYDROCHLOROTHIAZIDE 25 MG TABLET (FP) PO SCH (10:54)
[2021-11-19] MEDS ORDERED: SENNOSIDES/DOCUSATE COMBO (SENNA PLUS) TABLET (UD) PO PRN (13:22)
[2021-11-19] MEDS: THIAMINE HCL 100 MG TABLET (FP) PO SCH (21:30)
[2021-11-19] MEDS: MELATONIN 5 MG TABLETS PO SCH (22:39)
[2021-11-20] MEDS: HYDROCHLOROTHIAZIDE 25 MG TABLET (FP) PO SCH (10:46)
[2021-11-20] MEDS: FAMOTIDINE 20 MG TABLET PO SCH ×2 (10:47→21:48)
[2021-11-20] MEDS: amLODIPine BESYLATE 10 MG TABLET (FP) PO SCH (10:47)
[2021-11-20] MEDS: PRENATAL VITAMINS W/ FOLIC ACID TABLET (FP) PO SCH (10:47)
[2021-11-20] MEDS: THIAMINE HCL 100 MG TABLET (FP) PO SCH (21:48)
[2021-11-20] MEDS: MELATONIN 5 MG TABLETS PO SCH (21:48)
[2021-11-21] MEDS: PRENATAL VITAMINS W/ FOLIC ACID TABLET (FP) PO SCH (10:42)
[2021-11-21] MEDS: HYDROCHLOROTHIAZIDE 25 MG TABLET (FP) PO SCH (10:42)
[2021-11-21] MEDS: FAMOTIDINE 20 MG TABLET PO SCH ×2 (10:42→23:41)
[2021-11-21] MEDS: amLODIPine BESYLATE 10 MG TABLET (FP) PO SCH (10:42)
[2021-11-21] MEDS: MELATONIN 5 MG TABLETS PO SCH (23:41)
[2021-11-21] MEDS: THIAMINE HCL 100 MG TABLET (FP) PO SCH (23:41)
[2021-11-22 07:13] VITALS: PULSE 61; TEMP 97.1
[2021-11-22] MEDS: FAMOTIDINE 20 MG TABLET PO SCH (10:07)
[2021-11-22] MEDS: HYDROCHLOROTHIAZIDE 25 MG TABLET (FP) PO SCH (10:07)
[2021-11-22] MEDS: PRENATAL VITAMINS W/ FOLIC ACID TABLET (FP) PO SCH (10:07)
[2021-11-22] MEDS: amLODIPine BESYLATE 10 MG TABLET (FP) PO SCH (10:07)
[2021-11-22 10:08] VITALS: BP 135/68
== END 2021-11-22 10:00 | disposition home or self-care (01) | DRG 772 ==
LOC: YASAS 13:02 → Y5N 13:03
PROVIDERS: ADMIT Allergy & Immunology; ATTEND Psychiatry & Neurology Pain Medicine
PROC: HZ42ZZZ Group Counseling for Substance Abuse Treatment, Cognitive-Behavioral (ICD-10-PCS; principal; 2021-11-12)
DX: F10.20 Alcohol dependence, uncomplicated (principal); F14.20 Cocaine dependence, uncomplicated; F17.210 Nicotine dependence, cigarettes, uncomplicated; F31.9 Bipolar disorder, unspecified; F41.9 Anxiety disorder, unspecified; E72.20 Disorder of urea cycle metabolism, unspecified; I10 Essential (primary) hypertension; K21.9 Gastro-esophageal reflux disease without esophagitis; M17.11 Unilateral primary osteoarthritis, right knee; K59.00 Constipation, unspecified; Z86.19 Personal history of other infectious and parasitic diseases
CPT/HCPCS: 81003; 82140

== ENCOUNTER 2022-01-12 09:31 | Inpatient (IN) | payer OTHER ==
[2022-01-12 12:22] VITALS: BMI 24.2
[2022-01-12] MEDS ORDERED: METHOCARBAMOL 500 MG TABLET PO PRN (12:39)
[2022-01-12] MEDS ORDERED: BENZOCAINE/MENTHOL (CHLORASEPTIC ) LOZENGE MM PRN (12:39)
[2022-01-12] MEDS ORDERED: hydrOXYzine PAMOATE 25 MG CAPSULE (FP) PO PRN (12:39)
[2022-01-12] MEDS ORDERED: NICOTINE 10 MG CARTRIDGE (INHALER) IH PRN (12:39)
[2022-01-12] MEDS ORDERED: MAGNESIUM HYDROX 2400MG/30ML ORAL SUSPENSION 30 ML CUP PO PRN (12:39)
[2022-01-12] MEDS ORDERED: MAG HYDROX/AL HYDROX/SIMETH 30 ML UNIT-DOSE CUP PO PRN (12:39)
[2022-01-12] MEDS ORDERED: ONDANSETRON *ODT* 4 MG TABLET SL PRN (12:39)
[2022-01-12] MEDS ORDERED: DICYCLOMINE HCL 10 MG CAPSULE PO PRN (12:39)
[2022-01-12] MEDS ORDERED: LOPERAMIDE HCL 2 MG CAPSULE PO PRN (12:39)
[2022-01-12] MEDS ORDERED: NALOXONE HCL (KLOXXADO) 8 MG SPRAY NS PRN (12:39)
[2022-01-12] MEDS ORDERED: IBUPROFEN 600 MG TABLET (FP) PO PRN (12:39)
[2022-01-12] MEDS ORDERED: IBUPROFEN 400 MG TABLET (FP) PO PRN (12:39)
[2022-01-12] MEDS ORDERED: BISMUTH SUBSALICYLATE 524 MG/30 ML PO PRN (12:39)
[2022-01-12] MEDS ORDERED: ACETAMINOPHEN 325 MG TABLET (FP) PO PRN ×2 (12:39)
[2022-01-12] MEDS ORDERED: amLODIPine BESYLATE 10 MG TABLET (FP) PO SCH (12:45)
[2022-01-12] MEDS ORDERED: HYDROCHLOROTHIAZIDE 25 MG TABLET (FP) PO SCH (12:45)
[2022-01-12] MEDS: amLODIPine BESYLATE 10 MG TABLET (FP) PO SCH (15:40)
[2022-01-12] MEDS: HYDROCHLOROTHIAZIDE 25 MG TABLET (FP) PO SCH (15:40)
[2022-01-12] MEDS: ERYTHROMYCIN 0.5% OPHTHALMIC OINTMENT 3.5 GM TUBE OU SCH ×2 (16:48→21:51)
[2022-01-12] MEDS: THIAMINE HCL 100 MG TABLET (FP) PO SCH (21:54)
[2022-01-12] MEDS: MELATONIN 5 MG TABLETS PO SCH (21:54)
[2022-01-13] MEDS: ERYTHROMYCIN 0.5% OPHTHALMIC OINTMENT 3.5 GM TUBE OU SCH ×2 (10:31→22:39)
[2022-01-13] MEDS: HYDROCHLOROTHIAZIDE 25 MG TABLET (FP) PO SCH (11:32)
[2022-01-13] MEDS: amLODIPine BESYLATE 10 MG TABLET (FP) PO SCH (11:32)
[2022-01-13] MEDS: PRENATAL VITAMINS W/ FOLIC ACID TABLET (FP) PO SCH (11:33)
[2022-01-13 12:24] LABS: ALBUMIN 3.2 g/dl (3.4-5.0); CALCIUM 9.2 mg/dL (8.5-10.1)
[2022-01-13 12:25] LABS: BLOOD UREA NITROGEN 10.4 mg/dL (7-18)
[2022-01-13 12:26] LABS: CREATININE 0.9 mg/dL (0.55-1.3); HEMATOCRIT 39.5 % (32.4-45.2); HEMOGLOBIN 13.4 GM/dL (10.7-15.3); MCH 31.8 pg (25.7-33.7); MCHC 33.9 g/dl (32.0-36.0); MEAN CELL VOLUME 93.7 fl (80-96); MEAN PLT VOLUME 8.1 fl (7.5-11.1); PLATELET COUNT 245 10^3/uL (134-434); RBC 4.22 M/mm3 (3.60-5.2); RDW 14.7 % (11.6-15.6); WHITE BLOOD COUNT 4.1 K/mm3 (4.0-10.0)
[2022-01-13 12:28] LABS: BILIRUBIN,TOTAL 0.4 mg/dL (0.2-1); TOT PROT 6.4 g/dl (6.4-8.2)
[2022-01-13] MEDS: MELATONIN 5 MG TABLETS PO SCH (22:42)
[2022-01-13] MEDS: THIAMINE HCL 100 MG TABLET (FP) PO SCH (22:42)
[2022-01-14 09:25] VITALS: BP 135/69; PULSE 69; RESP 18; TEMP 98.7
[2022-01-14] MEDS: PRENATAL VITAMINS W/ FOLIC ACID TABLET (FP) PO SCH (11:09)
[2022-01-14] MEDS: amLODIPine BESYLATE 10 MG TABLET (FP) PO SCH (11:09)
[2022-01-14] MEDS: ERYTHROMYCIN 0.5% OPHTHALMIC OINTMENT 3.5 GM TUBE OU SCH (11:09)
[2022-01-14] MEDS: HYDROCHLOROTHIAZIDE 25 MG TABLET (FP) PO SCH (11:09)
== END 2022-01-14 11:46 | disposition other institution (70) | DRG 774 ==
LOC: YASAS 09:31 → UNDOADMIN 13:34 → Y3N 13:34
PROVIDERS: ADMIT Allergy & Immunology; ATTEND Surgery
PROC: HZ2ZZZZ Detoxification Services for Substance Abuse Treatment (ICD-10-PCS; principal; 2022-01-12)
DX: F10.230 Alcohol dependence with withdrawal, uncomplicated (principal); F14.20 Cocaine dependence, uncomplicated; F17.210 Nicotine dependence, cigarettes, uncomplicated; F20.9 Schizophrenia, unspecified; F41.9 Anxiety disorder, unspecified; F32.A Depression, unspecified; I10 Essential (primary) hypertension; K21.9 Gastro-esophageal reflux disease without esophagitis; H01.006 Unspecified blepharitis left eye, unspecified eyelid; H01.003 Unspecified blepharitis right eye, unspecified eyelid; M17.0 Bilateral primary osteoarthritis of knee; M54.50 Low back pain, unspecified; G89.29 Other chronic pain; Z86.19 Personal history of other infectious and parasitic diseases; Z59.00 Homelessness unspecified
CPT/HCPCS: 36415; 80053; 82140; 85027; 86593; 86780; C9803-CS; U0003; U0005

== ENCOUNTER 2022-02-25 06:38 | Inpatient (IN) | payer OTHER ==
[2022-02-25 06:48] VITALS: BMI 24.5
[2022-02-25] MEDS ORDERED: amLODIPine BESYLATE 10 MG TABLET (FP) PO ONE (07:01)
[2022-02-25] MEDS ORDERED: amLODIPine BESYLATE 5 MG TABLET (FP) ONE (07:50)
[2022-02-25] MEDS ORDERED: ACETAMINOPHEN 325 MG TABLET (FP) PO PRN ×2 (07:54)
[2022-02-25] MEDS ORDERED: NICOTINE POLACRILEX 2 MG GUM BUC PRN (07:54)
[2022-02-25] MEDS ORDERED: MAGNESIUM HYDROX 2400MG/30ML ORAL SUSPENSION 30 ML CUP PO PRN (07:54)
[2022-02-25] MEDS ORDERED: POLYETHYLENE GLYCOL (HEALTHYLAX) 3350 17 GM PACKET PO PRN (07:54)
[2022-02-25] MEDS ORDERED: IBUPROFEN 400 MG TABLET (FP) PO PRN (07:54)
[2022-02-25] MEDS ORDERED: NICOTINE 10 MG CARTRIDGE (INHALER) IH PRN (07:54)
[2022-02-25] MEDS ORDERED: IBUPROFEN 600 MG TABLET (FP) PO PRN (07:54)
[2022-02-25] MEDS ORDERED: DICYCLOMINE HCL 10 MG CAPSULE PO PRN (07:54)
[2022-02-25] MEDS ORDERED: ONDANSETRON *ODT* 4 MG TABLET SL PRN (07:54)
[2022-02-25] MEDS ORDERED: METHOCARBAMOL 500 MG TABLET PO PRN (07:54)
[2022-02-25] MEDS ORDERED: MAG HYDROX/AL HYDROX/SIMETH 30 ML UNIT-DOSE CUP PO PRN (07:54)
[2022-02-25] MEDS ORDERED: BENZOCAINE/MENTHOL (CHLORASEPTIC ) LOZENGE MM PRN (07:54)
[2022-02-25] MEDS ORDERED: NALOXONE HCL (KLOXXADO) 8 MG SPRAY NS PRN (07:54)
[2022-02-25] MEDS ORDERED: LOPERAMIDE HCL 2 MG CAPSULE PO PRN (07:54)
[2022-02-25] MEDS ORDERED: BISMUTH SUBSALICYLATE 524 MG/30 ML PO PRN (07:54)
[2022-02-25] MEDS ORDERED: cloNIDine HCL 0.1 MG TABLET PO STA (08:09)
[2022-02-25] MEDS: HYDROCHLOROTHIAZIDE 25 MG TABLET (FP) PO SCH (11:50)
[2022-02-25] MEDS: PRENATAL VITAMINS W/ FOLIC ACID TABLET (FP) PO SCH (11:50)
[2022-02-25] MEDS: chlordiazePOXIDE HCL 25 MG CAPSULE PO SCH ×3 (11:51→22:53)
[2022-02-25] MEDS: THIAMINE HCL 100 MG TABLET (FP) PO SCH (22:54)
[2022-02-25] MEDS: MELATONIN 5 MG TABLETS PO SCH (22:55)
[2022-02-26] MEDS: chlordiazePOXIDE HCL 25 MG CAPSULE PO SCH ×4 (06:14→22:58)
[2022-02-26] MEDS: amLODIPine BESYLATE 10 MG TABLET (FP) PO SCH ×2 (10:03→10:39)
[2022-02-26] MEDS: HYDROCHLOROTHIAZIDE 25 MG TABLET (FP) PO SCH (10:39)
[2022-02-26] MEDS: PRENATAL VITAMINS W/ FOLIC ACID TABLET (FP) PO SCH (10:39)
[2022-02-26 13:38] LABS: HEMOGLOBIN 12.8 GM/dL (10.7-15.3); MEAN CELL VOLUME 93.8 fl (80-96); PLATELET COUNT 250 10^3/uL (134-434); RBC 4.27 M/mm3 (3.60-5.2); WHITE BLOOD COUNT 3.7 K/mm3 (4.0-10.0)
[2022-02-26 14:50] LABS: ALBUMIN 3.1 g/dl (3.4-5.0)
[2022-02-26 14:53] LABS: BILIRUBIN,TOTAL 0.7 mg/dL (0.2-1); BLOOD UREA NITROGEN 17.3 mg/dL (7-18); CALCIUM 9.2 mg/dL (8.5-10.1); CREATININE 1.1 mg/dL (0.55-1.3); TOT PROT 6.4 g/dl (6.4-8.2)
[2022-02-26] MEDS: THIAMINE HCL 100 MG TABLET (FP) PO SCH (22:58)
[2022-02-26] MEDS: MELATONIN 5 MG TABLETS PO SCH (22:58)
[2022-02-27] MEDS: chlordiazePOXIDE HCL 25 MG CAPSULE PO SCH ×4 (05:54→22:49)
[2022-02-27] MEDS: HYDROCHLOROTHIAZIDE 25 MG TABLET (FP) PO SCH (10:21)
[2022-02-27] MEDS: PRENATAL VITAMINS W/ FOLIC ACID TABLET (FP) PO SCH (10:21)
[2022-02-27] MEDS: amLODIPine BESYLATE 10 MG TABLET (FP) PO SCH (10:22)
[2022-02-27] MEDS: MELATONIN 5 MG TABLETS PO SCH (22:48)
[2022-02-27] MEDS: THIAMINE HCL 100 MG TABLET (FP) PO SCH (22:48)
[2022-02-28] MEDS: chlordiazePOXIDE HCL 10 MG CAPSULE PO SCH ×4 (06:23→23:06)
[2022-02-28 08:55] VITALS: RESP 18
[2022-02-28] MEDS: PRENATAL VITAMINS W/ FOLIC ACID TABLET (FP) PO SCH (10:38)
[2022-02-28] MEDS: HYDROCHLOROTHIAZIDE 25 MG TABLET (FP) PO SCH (10:39)
[2022-02-28] MEDS: amLODIPine BESYLATE 10 MG TABLET (FP) PO SCH (10:39)
[2022-02-28] MEDS: MELATONIN 5 MG TABLETS PO SCH (23:06)
[2022-02-28] MEDS: THIAMINE HCL 100 MG TABLET (FP) PO SCH (23:06)
[2022-03-01] MEDS ORDERED: chlordiazePOXIDE HCL 10 MG CAPSULE PO SCH (05:00)
[2022-03-01 08:58] VITALS: BP 110/65; PULSE 66; TEMP 97.3
[2022-03-02] MEDS ORDERED: chlordiazePOXIDE HCL 10 MG CAPSULE PO ONE (05:00)
== END 2022-03-01 11:35 | disposition home or self-care (01) | DRG 774 ==
LOC: YASAS 06:38 → Y6N 08:36 → Y3N 02-26 15:18
PROVIDERS: ADMIT Allergy & Immunology; ATTEND Surgery
PROC: HZ2ZZZZ Detoxification Services for Substance Abuse Treatment (ICD-10-PCS; principal; 2022-02-25)
DX: F10.230 Alcohol dependence with withdrawal, uncomplicated (principal); F14.20 Cocaine dependence, uncomplicated; F17.210 Nicotine dependence, cigarettes, uncomplicated; F20.9 Schizophrenia, unspecified; F41.8 Other specified anxiety disorders; I10 Essential (primary) hypertension; K21.9 Gastro-esophageal reflux disease without esophagitis; M17.0 Bilateral primary osteoarthritis of knee; M54.50 Low back pain, unspecified; G89.29 Other chronic pain; Z86.19 Personal history of other infectious and parasitic diseases
CPT/HCPCS: 36415; 71046-TC-FY; 80053; 85027; 86593; 86780; C9803-CS; U0003; U0005

== ENCOUNTER 2022-03-09 11:03 | Inpatient (IN) | payer OTHER ==
[2022-03-09 13:40] VITALS: BMI 22.6
[2022-03-09] MEDS ORDERED: POLYETHYLENE GLYCOL (HEALTHYLAX) 3350 17 GM PACKET PO PRN (19:48)
[2022-03-09] MEDS ORDERED: BENZOCAINE/MENTHOL (CHLORASEPTIC ) LOZENGE MM PRN (19:48)
[2022-03-09] MEDS ORDERED: IBUPROFEN 400 MG TABLET (FP) PO PRN (19:48)
[2022-03-09] MEDS ORDERED: NICOTINE 10 MG CARTRIDGE (INHALER) IH PRN (19:48)
[2022-03-09] MEDS ORDERED: hydrOXYzine PAMOATE 25 MG CAPSULE (FP) PO PRN (19:48)
[2022-03-09] MEDS ORDERED: MAGNESIUM HYDROX 2400MG/30ML ORAL SUSPENSION 30 ML CUP PO PRN (19:48)
[2022-03-09] MEDS ORDERED: LOPERAMIDE HCL 2 MG CAPSULE PO PRN (19:48)
[2022-03-09] MEDS ORDERED: guaiFENesin 200 MG/10 ML 10 ML UNIT-DOSE CUPS PO PRN (19:48)
[2022-03-09] MEDS ORDERED: P-EPHED 60MG/TRIPROLIDI 2.5MG TABLET PO PRN (19:48)
[2022-03-09] MEDS ORDERED: ACETAMINOPHEN 325 MG TABLET (FP) PO PRN (19:48)
[2022-03-09] MEDS ORDERED: MAG HYDROX/AL HYDROX/SIMETH 30 ML UNIT-DOSE CUP PO PRN (19:48)
[2022-03-09] MEDS: MELATONIN 5 MG TABLETS PO SCH (23:10)
[2022-03-09] MEDS: THIAMINE HCL 100 MG TABLET (FP) PO SCH (23:10)
[2022-03-09 23:21] VITALS: BP 144/70; PULSE 66; RESP 18; TEMP 97.2
[2022-03-10] MEDS: PRENATAL VITAMINS W/ FOLIC ACID TABLET (FP) PO SCH (10:00)
[2022-03-10] MEDS: NICOTINE 7 MG/24 HOURS TOPICAL PATCH TD SCH (10:00)
[2022-03-10] MEDS: THIAMINE HCL 100 MG TABLET (FP) PO SCH (22:01)
[2022-03-10] MEDS: MELATONIN 5 MG TABLETS PO SCH (22:01)
[2022-03-11] MEDS: PRENATAL VITAMINS W/ FOLIC ACID TABLET (FP) PO SCH (10:22)
[2022-03-11] MEDS: NICOTINE 7 MG/24 HOURS TOPICAL PATCH TD SCH (10:22)
== END 2022-03-11 12:45 | disposition left against medical advice (07) | DRG 770 ==
LOC: YASAS 11:03 → Y5N 22:40
PROVIDERS: ADMIT Allergy & Immunology; ATTEND Psychiatry & Neurology Pain Medicine
PROC: HZ42ZZZ Group Counseling for Substance Abuse Treatment, Cognitive-Behavioral (ICD-10-PCS; principal; 2022-03-09)
DX: F10.20 Alcohol dependence, uncomplicated (principal); F14.20 Cocaine dependence, uncomplicated; F17.210 Nicotine dependence, cigarettes, uncomplicated; F32.A Depression, unspecified; I10 Essential (primary) hypertension; K21.9 Gastro-esophageal reflux disease without esophagitis; M17.0 Bilateral primary osteoarthritis of knee; M54.50 Low back pain, unspecified; G89.29 Other chronic pain
CPT/HCPCS: 87811; C9803-CS; U0003; U0005

== ENCOUNTER 2022-04-09 00:57 | Inpatient (IN) | payer OTHER ==
[2022-04-09 01:37] VITALS: BMI 23.6
[2022-04-09] MEDS ORDERED: MAG HYDROX/AL HYDROX/SIMETH 30 ML UNIT-DOSE CUP PO PRN (02:17)
[2022-04-09] MEDS ORDERED: LOPERAMIDE HCL 2 MG CAPSULE PO PRN (02:17)
[2022-04-09] MEDS ORDERED: ONDANSETRON *ODT* 4 MG TABLET SL PRN (02:17)
[2022-04-09] MEDS ORDERED: DICYCLOMINE HCL 10 MG CAPSULE PO PRN (02:17)
[2022-04-09] MEDS ORDERED: POLYETHYLENE GLYCOL (HEALTHYLAX) 3350 17 GM PACKET PO PRN (02:17)
[2022-04-09] MEDS ORDERED: NICOTINE 10 MG CARTRIDGE (INHALER) IH PRN (02:17)
[2022-04-09] MEDS ORDERED: MAGNESIUM HYDROX 2400MG/30ML ORAL SUSPENSION 30 ML CUP PO PRN (02:17)
[2022-04-09] MEDS ORDERED: IBUPROFEN 600 MG TABLET (FP) PO PRN (02:17)
[2022-04-09] MEDS ORDERED: BENZOCAINE/MENTHOL (CHLORASEPTIC ) LOZENGE MM PRN (02:17)
[2022-04-09] MEDS ORDERED: BISMUTH SUBSALICYLATE 524 MG/30 ML PO PRN (02:17)
[2022-04-09] MEDS ORDERED: IBUPROFEN 400 MG TABLET (FP) PO PRN (02:17)
[2022-04-09] MEDS ORDERED: METHOCARBAMOL 500 MG TABLET PO PRN (02:17)
[2022-04-09] MEDS ORDERED: NALOXONE HCL (KLOXXADO) 8 MG SPRAY NS PRN (02:17)
[2022-04-09] MEDS ORDERED: ACETAMINOPHEN 325 MG TABLET (FP) PO PRN ×2 (02:17)
[2022-04-09] MEDS: PRENATAL VITAMINS W/ FOLIC ACID TABLET (FP) PO SCH (10:50)
[2022-04-09] MEDS: diazePAM 5 MG TABLET PO SCH ×3 (10:50→23:00)
[2022-04-09] MEDS: NICOTINE 14 MG/24 HOURS TOPICAL PATCH TD SCH (10:50)
[2022-04-09] MEDS: amLODIPine BESYLATE 10 MG TABLET (FP) PO SCH (14:12)
[2022-04-09] MEDS: PANTOPRAZOLE 40 MG TABLET PO SCH (14:13)
[2022-04-09] MEDS: HYDROCHLOROTHIAZIDE 25 MG TABLET (FP) PO SCH (14:13)
[2022-04-09] MEDS: THIAMINE HCL 100 MG TABLET (FP) PO SCH (22:59)
[2022-04-09] MEDS: MELATONIN 5 MG TABLETS PO SCH (23:00)
[2022-04-10] MEDS: diazePAM 5 MG TABLET PO SCH ×4 (05:37→22:20)
[2022-04-10] MEDS: HYDROCHLOROTHIAZIDE 25 MG TABLET (FP) PO SCH (10:52)
[2022-04-10] MEDS: NICOTINE 14 MG/24 HOURS TOPICAL PATCH TD SCH (10:52)
[2022-04-10] MEDS: PRENATAL VITAMINS W/ FOLIC ACID TABLET (FP) PO SCH (10:52)
[2022-04-10] MEDS: PANTOPRAZOLE 40 MG TABLET PO SCH (10:52)
[2022-04-10] MEDS: amLODIPine BESYLATE 10 MG TABLET (FP) PO SCH (10:52)
[2022-04-10 12:14] LABS: HEMATOCRIT 38.3 % (32.4-45.2); HEMOGLOBIN 12.6 GM/dL (10.7-15.3); MCH 30.8 pg (25.7-33.7); MEAN CELL VOLUME 93.5 fl (80-96); MEAN PLT VOLUME 8.4 fl (7.5-11.1); PLATELET COUNT 240 10^3/uL (134-434); RBC 4.09 M/mm3 (3.60-5.2); RDW 14.7 % (11.6-15.6); WHITE BLOOD COUNT 4.1 K/mm3 (4.0-10.0)
[2022-04-10 12:51] LABS: BLOOD UREA NITROGEN 25.5 mg/dL (7-18); CALCIUM 9.1 mg/dL (8.5-10.1)
[2022-04-10 12:52] LABS: ALBUMIN 3.1 g/dl (3.4-5.0)
[2022-04-10 12:55] LABS: CREATININE 0.9 mg/dL (0.55-1.3)
[2022-04-10 12:56] LABS: BILIRUBIN,TOTAL 0.5 mg/dL (0.2-1); TOT PROT 6.3 g/dl (6.4-8.2)
[2022-04-10] MEDS: MELATONIN 5 MG TABLETS PO SCH (22:20)
[2022-04-10] MEDS: THIAMINE HCL 100 MG TABLET (FP) PO SCH (22:20)
[2022-04-11] MEDS: diazePAM 5 MG TABLET PO SCH ×2 (06:19→13:48)
[2022-04-11] MEDS: PRENATAL VITAMINS W/ FOLIC ACID TABLET (FP) PO SCH (10:45)
[2022-04-11] MEDS: NICOTINE 14 MG/24 HOURS TOPICAL PATCH TD SCH (10:45)
[2022-04-11] MEDS: HYDROCHLOROTHIAZIDE 25 MG TABLET (FP) PO SCH (10:45)
[2022-04-11] MEDS: amLODIPine BESYLATE 10 MG TABLET (FP) PO SCH (10:45)
[2022-04-11] MEDS: PANTOPRAZOLE 40 MG TABLET PO SCH (10:45)
[2022-04-12] MEDS: diazePAM 5 MG TABLET PO SCH (00:03)
[2022-04-12] MEDS: MELATONIN 5 MG TABLETS PO SCH (00:03)
[2022-04-12] MEDS: THIAMINE HCL 100 MG TABLET (FP) PO SCH (00:04)
[2022-04-12] MEDS ORDERED: diazePAM 5 MG TABLET PO SCH (06:00)
[2022-04-12 09:48] VITALS: RESP 18
[2022-04-12] MEDS: PRENATAL VITAMINS W/ FOLIC ACID TABLET (FP) PO SCH (10:33)
[2022-04-12] MEDS: PANTOPRAZOLE 40 MG TABLET PO SCH (10:33)
[2022-04-12] MEDS: HYDROCHLOROTHIAZIDE 25 MG TABLET (FP) PO SCH (10:33)
[2022-04-12] MEDS: amLODIPine BESYLATE 10 MG TABLET (FP) PO SCH (10:33)
[2022-04-12] MEDS: NICOTINE 14 MG/24 HOURS TOPICAL PATCH TD SCH (10:34)
[2022-04-12 13:31] VITALS: BP 125/64; PULSE 66; TEMP 98
[2022-04-13] MEDS ORDERED: diazePAM 5 MG TABLET PO ONE (06:00)
== END 2022-04-12 14:20 | disposition left against medical advice (07) | DRG 770 ==
LOC: YASAS 00:57 → Y6N 02:51
PROVIDERS: ADMIT Allergy & Immunology; ATTEND Family Medicine
PROC: HZ2ZZZZ Detoxification Services for Substance Abuse Treatment (ICD-10-PCS; principal; 2022-04-09)
DX: F10.230 Alcohol dependence with withdrawal, uncomplicated (principal); F14.20 Cocaine dependence, uncomplicated; F17.210 Nicotine dependence, cigarettes, uncomplicated; F31.9 Bipolar disorder, unspecified; F41.9 Anxiety disorder, unspecified; I10 Essential (primary) hypertension; H01.003 Unspecified blepharitis right eye, unspecified eyelid; H01.006 Unspecified blepharitis left eye, unspecified eyelid; K21.9 Gastro-esophageal reflux disease without esophagitis; M54.50 Low back pain, unspecified; G89.29 Other chronic pain; M17.0 Bilateral primary osteoarthritis of knee; Z56.0 Unemployment, unspecified; Z59.00 Homelessness unspecified
CPT/HCPCS: 36415; 80053; 85027; 86593; 86780; 87811; C9803-CS; U0003; U0005

== ENCOUNTER 2022-04-29 03:23 | Inpatient (IN) | payer OTHER ==
[2022-04-29 03:43] VITALS: BMI 20.5
[2022-04-29] MEDS ORDERED: METHOCARBAMOL 500 MG TABLET PO PRN (05:45)
[2022-04-29] MEDS ORDERED: POLYETHYLENE GLYCOL (HEALTHYLAX) 3350 17 GM PACKET PO PRN (05:45)
[2022-04-29] MEDS ORDERED: DICYCLOMINE HCL 10 MG CAPSULE PO PRN (05:45)
[2022-04-29] MEDS ORDERED: NALOXONE HCL (KLOXXADO) 8 MG SPRAY NS PRN (05:45)
[2022-04-29] MEDS ORDERED: IBUPROFEN 600 MG TABLET (FP) PO PRN (05:45)
[2022-04-29] MEDS ORDERED: MAG HYDROX/AL HYDROX/SIMETH 30 ML UNIT-DOSE CUP PO PRN (05:45)
[2022-04-29] MEDS ORDERED: BISMUTH SUBSALICYLATE 524 MG/30 ML PO PRN (05:45)
[2022-04-29] MEDS ORDERED: MAGNESIUM HYDROX 2400MG/30ML ORAL SUSPENSION 30 ML CUP PO PRN (05:45)
[2022-04-29] MEDS ORDERED: BENZOCAINE/MENTHOL (CHLORASEPTIC ) LOZENGE MM PRN (05:45)
[2022-04-29] MEDS ORDERED: NICOTINE 10 MG CARTRIDGE (INHALER) IH PRN (05:45)
[2022-04-29] MEDS ORDERED: ONDANSETRON *ODT* 4 MG TABLET SL PRN (05:45)
[2022-04-29] MEDS ORDERED: LOPERAMIDE HCL 2 MG CAPSULE PO PRN (05:45)
[2022-04-29] MEDS ORDERED: IBUPROFEN 400 MG TABLET (FP) PO PRN (05:45)
[2022-04-29] MEDS ORDERED: ACETAMINOPHEN 325 MG TABLET (FP) PO PRN ×2 (05:45)
[2022-04-29] MEDS: NICOTINE 14 MG/24 HOURS TOPICAL PATCH TD SCH (10:33)
[2022-04-29] MEDS: HYDROCHLOROTHIAZIDE 25 MG TABLET (FP) PO SCH (10:36)
[2022-04-29] MEDS: PANTOPRAZOLE 40 MG TABLET PO SCH (10:36)
[2022-04-29] MEDS: diazePAM 5 MG TABLET PO SCH ×3 (10:36→22:12)
[2022-04-29] MEDS: amLODIPine BESYLATE 10 MG TABLET (FP) PO SCH (10:36)
[2022-04-29] MEDS: PRENATAL VITAMINS W/ FOLIC ACID TABLET (FP) PO SCH (10:36)
[2022-04-29] MEDS: MELATONIN 5 MG TABLETS PO SCH (22:12)
[2022-04-29] MEDS: THIAMINE HCL 100 MG TABLET (FP) PO SCH (22:12)
[2022-04-30] MEDS: diazePAM 5 MG TABLET PO SCH ×4 (05:50→23:22)
[2022-04-30] MEDS: amLODIPine BESYLATE 10 MG TABLET (FP) PO SCH (10:33)
[2022-04-30] MEDS: PRENATAL VITAMINS W/ FOLIC ACID TABLET (FP) PO SCH (10:33)
[2022-04-30] MEDS: PANTOPRAZOLE 40 MG TABLET PO SCH (10:33)
[2022-04-30] MEDS: HYDROCHLOROTHIAZIDE 25 MG TABLET (FP) PO SCH (10:33)
[2022-04-30] MEDS: NICOTINE 14 MG/24 HOURS TOPICAL PATCH TD SCH (10:36)
[2022-04-30 12:29] LABS: HEMATOCRIT 39.6 % (32.4-45.2); HEMOGLOBIN 13.4 GM/dL (10.7-15.3); MCH 31.3 pg (25.7-33.7); MCHC 33.8 g/dl (32.0-36.0); MEAN CELL VOLUME 92.8 fl (80-96); MEAN PLT VOLUME 8.1 fl (7.5-11.1); PLATELET COUNT 268 10^3/uL (134-434); RBC 4.27 M/mm3 (3.60-5.2); RDW 14.3 % (11.6-15.6); WHITE BLOOD COUNT 3.6 K/mm3 (4.0-10.0)
[2022-04-30 12:32] LABS: ALBUMIN 3.3 g/dl (3.4-5.0); BLOOD UREA NITROGEN 20.4 mg/dL (7-18); CALCIUM 9.1 mg/dL (8.5-10.1)
[2022-04-30 12:35] LABS: CREATININE 1.1 mg/dL (0.55-1.3)
[2022-04-30 12:37] LABS: BILIRUBIN,TOTAL 0.4 mg/dL (0.2-1); TOT PROT 6.4 g/dl (6.4-8.2)
[2022-04-30] MEDS: MELATONIN 5 MG TABLETS PO SCH (23:21)
[2022-04-30] MEDS: THIAMINE HCL 100 MG TABLET (FP) PO SCH (23:22)
[2022-05-01] MEDS: diazePAM 5 MG TABLET PO SCH ×3 (06:19→22:16)
[2022-05-01] MEDS: PRENATAL VITAMINS W/ FOLIC ACID TABLET (FP) PO SCH (10:42)
[2022-05-01] MEDS: amLODIPine BESYLATE 10 MG TABLET (FP) PO SCH (10:42)
[2022-05-01] MEDS: PANTOPRAZOLE 40 MG TABLET PO SCH (10:42)
[2022-05-01] MEDS: HYDROCHLOROTHIAZIDE 25 MG TABLET (FP) PO SCH (10:42)
[2022-05-01] MEDS: NICOTINE 14 MG/24 HOURS TOPICAL PATCH TD SCH (10:43)
[2022-05-01] MEDS: MELATONIN 5 MG TABLETS PO SCH (22:16)
[2022-05-01] MEDS: THIAMINE HCL 100 MG TABLET (FP) PO SCH (22:17)
[2022-05-02] MEDS ORDERED: diazePAM 5 MG TABLET PO SCH (06:00)
[2022-05-02 07:12] VITALS: PULSE 62
[2022-05-02 09:58] VITALS: BP 132/70; RESP 18; TEMP 98
[2022-05-02] MEDS: PRENATAL VITAMINS W/ FOLIC ACID TABLET (FP) PO SCH (10:53)
[2022-05-02] MEDS: HYDROCHLOROTHIAZIDE 25 MG TABLET (FP) PO SCH (10:53)
[2022-05-02] MEDS: amLODIPine BESYLATE 10 MG TABLET (FP) PO SCH (10:53)
[2022-05-02] MEDS: PANTOPRAZOLE 40 MG TABLET PO SCH (10:53)
[2022-05-02] MEDS: NICOTINE 14 MG/24 HOURS TOPICAL PATCH TD SCH (10:53)
[2022-05-03] MEDS ORDERED: diazePAM 5 MG TABLET PO ONE (06:00)
== END 2022-05-02 13:42 | disposition home or self-care (01) | DRG 774 ==
LOC: YASAS 03:23 → Y6N 07:00
PROVIDERS: ADMIT Allergy & Immunology; ATTEND Allergy & Immunology
PROC: HZ2ZZZZ Detoxification Services for Substance Abuse Treatment (ICD-10-PCS; principal; 2022-04-29)
DX: F10.230 Alcohol dependence with withdrawal, uncomplicated (principal); F14.20 Cocaine dependence, uncomplicated; F17.210 Nicotine dependence, cigarettes, uncomplicated; F91.9 Conduct disorder, unspecified; I10 Essential (primary) hypertension; K21.9 Gastro-esophageal reflux disease without esophagitis; M17.0 Bilateral primary osteoarthritis of knee; M54.50 Low back pain, unspecified; Z86.19 Personal history of other infectious and parasitic diseases; Z56.0 Unemployment, unspecified; Z59.00 Homelessness unspecified
CPT/HCPCS: 36415; 71046-TC-FY; 80053; 85027; 86593; 86780; 93005; 93010; C9803-CS; U0003; U0005

== ENCOUNTER 2022-06-05 09:55 | Inpatient (IN) | payer OTHER ==
[2022-06-05 10:29] VITALS: BMI 21.6
[2022-06-05] MEDS ORDERED: IBUPROFEN 600 MG TABLET (FP) PO PRN (11:16)
[2022-06-05] MEDS ORDERED: guaiFENesin 600 MG TABLET.ER (FP) PO PRN (11:16)
[2022-06-05] MEDS ORDERED: MAGNESIUM HYDROX 2400MG/30ML ORAL SUSPENSION 30 ML CUP PO PRN (11:16)
[2022-06-05] MEDS ORDERED: DICYCLOMINE HCL 10 MG CAPSULE PO PRN (11:16)
[2022-06-05] MEDS ORDERED: IBUPROFEN 400 MG TABLET (FP) PO PRN (11:16)
[2022-06-05] MEDS ORDERED: POLYETHYLENE GLYCOL (HEALTHYLAX) 3350 17 GM PACKET PO PRN (11:16)
[2022-06-05] MEDS ORDERED: BENZOCAINE/MENTHOL (CHLORASEPTIC ) LOZENGE MM PRN (11:16)
[2022-06-05] MEDS ORDERED: ONDANSETRON *ODT* 4 MG TABLET SL PRN (11:16)
[2022-06-05] MEDS ORDERED: BISMUTH SUBSALICYLATE 262 MG/15 ML BTL PO PRN (11:16)
[2022-06-05] MEDS ORDERED: NICOTINE 10 MG CARTRIDGE (INHALER) IH PRN (11:16)
[2022-06-05] MEDS ORDERED: NALOXONE HCL 0.4 MG/ML VIAL IM PRN (11:16)
[2022-06-05] MEDS ORDERED: LOPERAMIDE HCL 2 MG CAPSULE PO PRN (11:16)
[2022-06-05] MEDS ORDERED: ACETAMINOPHEN 325 MG TABLET (FP) PO PRN (11:16)
[2022-06-05] MEDS ORDERED: NALOXONE HCL (KLOXXADO) 8 MG SPRAY NS PRN (11:16)
[2022-06-05] MEDS ORDERED: BENZONATATE 200 MG CAPSULE PO PRN (11:16)
[2022-06-05] MEDS ORDERED: METHOCARBAMOL 500 MG TABLET PO PRN (11:16)
[2022-06-05] MEDS ORDERED: hydrOXYzine PAMOATE 25 MG CAPSULE (FP) PO PRN (11:16)
[2022-06-05] MEDS ORDERED: MAG HYDROX/AL HYDROX/SIMETH 30 ML UNIT-DOSE CUP PO PRN (11:16)
[2022-06-05] MEDS ORDERED: diazePAM 5 MG TABLET PO PRN (11:16)
[2022-06-05] MEDS: amLODIPine BESYLATE 10 MG TABLET (FP) PO SCH (13:40)
[2022-06-05] MEDS: HYDROCHLOROTHIAZIDE 25 MG TABLET (FP) PO SCH (13:41)
[2022-06-05] MEDS: FAMOTIDINE 20 MG TABLET PO SCH (14:26)
[2022-06-05 17:21] LABS: HEMATOCRIT 42.7 % (32.4-45.2); HEMOGLOBIN 14.5 GM/dL (10.7-15.3); MCH 31.2 pg (25.7-33.7); MCHC 34.1 g/dl (32.0-36.0); MEAN CELL VOLUME 91.7 fl (80-96); MEAN PLT VOLUME 8.2 fl (7.5-11.1); PLATELET COUNT 274 10^3/uL (134-434); RBC 4.66 M/mm3 (3.60-5.2); RDW 14.9 % (11.6-15.6); WHITE BLOOD COUNT 5.2 K/mm3 (4.0-10.0)
[2022-06-05] MEDS: diazePAM 5 MG TABLET PO SCH ×2 (17:26→22:59)
[2022-06-05 17:44] LABS: CALCIUM 9.8 mg/dL (8.5-10.1)
[2022-06-05 17:45] LABS: ALBUMIN 3.9 g/dl (3.4-5.0); BLOOD UREA NITROGEN 18.8 mg/dL (7-18)
[2022-06-05 17:48] LABS: CREATININE 1.1 mg/dL (0.55-1.3)
[2022-06-05 17:50] LABS: BILIRUBIN,TOTAL 0.5 mg/dL (0.2-1); TOT PROT 7.8 g/dl (6.4-8.2)
[2022-06-05] MEDS: MELATONIN 5 MG TABLETS PO SCH (23:50)
[2022-06-05] MEDS: THIAMINE HCL 100 MG TABLET (FP) PO SCH (23:50)
[2022-06-06] MEDS: diazePAM 5 MG TABLET PO SCH ×4 (05:50→23:22)
[2022-06-06] MEDS: PRENATAL VITAMINS W/ FOLIC ACID TABLET (FP) PO SCH (10:58)
[2022-06-06] MEDS: FAMOTIDINE 20 MG TABLET PO SCH (10:58)
[2022-06-06] MEDS: amLODIPine BESYLATE 10 MG TABLET (FP) PO SCH (10:58)
[2022-06-06] MEDS: HYDROCHLOROTHIAZIDE 25 MG TABLET (FP) PO SCH (10:58)
[2022-06-06] MEDS: MELATONIN 5 MG TABLETS PO SCH (23:22)
[2022-06-06] MEDS: THIAMINE HCL 100 MG TABLET (FP) PO SCH (23:22)
[2022-06-07] MEDS: diazePAM 5 MG TABLET PO SCH ×3 (06:00→23:23)
[2022-06-07] MEDS: HYDROCHLOROTHIAZIDE 25 MG TABLET (FP) PO SCH (11:03)
[2022-06-07] MEDS: FAMOTIDINE 20 MG TABLET PO SCH (11:03)
[2022-06-07] MEDS: PRENATAL VITAMINS W/ FOLIC ACID TABLET (FP) PO SCH (11:03)
[2022-06-07] MEDS: amLODIPine BESYLATE 10 MG TABLET (FP) PO SCH (11:03)
[2022-06-07] MEDS: MELATONIN 5 MG TABLETS PO SCH (23:23)
[2022-06-07] MEDS: THIAMINE HCL 100 MG TABLET (FP) PO SCH (23:24)
[2022-06-08] MEDS ORDERED: diazePAM 5 MG TABLET PO SCH (06:00)
[2022-06-08 07:55] VITALS: TEMP 97.3
[2022-06-08 09:52] VITALS: BP 117/53; PULSE 74; RESP 18
[2022-06-08] MEDS: HYDROCHLOROTHIAZIDE 25 MG TABLET (FP) PO SCH (10:40)
[2022-06-08] MEDS: PRENATAL VITAMINS W/ FOLIC ACID TABLET (FP) PO SCH (10:40)
[2022-06-08] MEDS: FAMOTIDINE 20 MG TABLET PO SCH (10:40)
[2022-06-08] MEDS: amLODIPine BESYLATE 10 MG TABLET (FP) PO SCH (10:40)
[2022-06-09] MEDS ORDERED: diazePAM 5 MG TABLET PO ONE (06:00)
== END 2022-06-08 17:11 | disposition home or self-care (01) | DRG 774 ==
LOC: YASAS 09:55 → Y6N 11:25
PROVIDERS: ADMIT Allergy & Immunology; ATTEND Surgery
PROC: HZ2ZZZZ Detoxification Services for Substance Abuse Treatment (ICD-10-PCS; principal; 2022-06-05)
DX: F10.230 Alcohol dependence with withdrawal, uncomplicated (principal); F14.20 Cocaine dependence, uncomplicated; F17.210 Nicotine dependence, cigarettes, uncomplicated; F20.9 Schizophrenia, unspecified; F31.9 Bipolar disorder, unspecified; F41.9 Anxiety disorder, unspecified; E78.5 Hyperlipidemia, unspecified; I10 Essential (primary) hypertension; K21.9 Gastro-esophageal reflux disease without esophagitis; M17.0 Bilateral primary osteoarthritis of knee; M54.50 Low back pain, unspecified; G89.29 Other chronic pain
CPT/HCPCS: 36415; 80053; 85027; 86593; 86780; 87811; C9803-CS; U0003; U0005

== ENCOUNTER 2022-06-15 08:36 | Inpatient (IN) | payer OTHER ==
[2022-06-15 09:52] VITALS: BMI 20.9
[2022-06-15] MEDS ORDERED: DICYCLOMINE HCL 10 MG CAPSULE PO PRN (10:05)
[2022-06-15] MEDS ORDERED: LOPERAMIDE HCL 2 MG CAPSULE PO PRN (10:05)
[2022-06-15] MEDS ORDERED: NALOXONE HCL 0.4 MG/ML VIAL IM PRN (10:05)
[2022-06-15] MEDS ORDERED: IBUPROFEN 600 MG TABLET (FP) PO PRN (10:05)
[2022-06-15] MEDS ORDERED: BENZOCAINE/MENTHOL (CHLORASEPTIC ) LOZENGE MM PRN (10:05)
[2022-06-15] MEDS ORDERED: ACETAMINOPHEN 325 MG TABLET (FP) PO PRN (10:05)
[2022-06-15] MEDS ORDERED: POLYETHYLENE GLYCOL (HEALTHYLAX) 3350 17 GM PACKET PO PRN (10:05)
[2022-06-15] MEDS ORDERED: guaiFENesin 600 MG TABLET.ER (FP) PO PRN (10:05)
[2022-06-15] MEDS ORDERED: NALOXONE HCL (KLOXXADO) 8 MG SPRAY NS PRN (10:05)
[2022-06-15] MEDS ORDERED: BISMUTH SUBSALICYLATE 524 MG/30 ML PO PRN (10:05)
[2022-06-15] MEDS ORDERED: ONDANSETRON *ODT* 4 MG TABLET SL PRN (10:05)
[2022-06-15] MEDS ORDERED: IBUPROFEN 400 MG TABLET (FP) PO PRN (10:05)
[2022-06-15] MEDS ORDERED: BENZONATATE 200 MG CAPSULE PO PRN (10:05)
[2022-06-15] MEDS ORDERED: MAG HYDROX/AL HYDROX/SIMETH 30 ML UNIT-DOSE CUP PO PRN (10:05)
[2022-06-15] MEDS ORDERED: METHOCARBAMOL 500 MG TABLET PO PRN (10:05)
[2022-06-15] MEDS ORDERED: NICOTINE 10 MG CARTRIDGE (INHALER) IH PRN (10:05)
[2022-06-15] MEDS ORDERED: MAGNESIUM HYDROX 2400MG/30ML ORAL SUSPENSION 30 ML CUP PO PRN (10:05)
[2022-06-15] MEDS ORDERED: hydrOXYzine PAMOATE 25 MG CAPSULE (FP) PO PRN (10:05)
[2022-06-15] MEDS: FAMOTIDINE 20 MG TABLET PO SCH (12:48)
[2022-06-15] MEDS: amLODIPine BESYLATE 10 MG TABLET (FP) PO SCH (12:48)
[2022-06-15] MEDS: HYDROCHLOROTHIAZIDE 25 MG TABLET (FP) PO SCH (12:48)
[2022-06-15] MEDS: MELATONIN 5 MG TABLETS PO SCH (22:09)
[2022-06-15] MEDS: THIAMINE HCL 100 MG TABLET (FP) PO SCH (22:10)
[2022-06-15] MEDS ORDERED: amLODIPine BESYLATE 10 MG TABLET (FP) PO ONE (23:51)
[2022-06-15] MEDS ORDERED: cloNIDine HCL 0.1 MG TABLET PO ONE (23:53)
[2022-06-16] MEDS: HYDROCHLOROTHIAZIDE 25 MG TABLET (FP) PO SCH (09:44)
[2022-06-16] MEDS: PRENATAL VITAMINS W/ FOLIC ACID TABLET (FP) PO SCH (09:44)
[2022-06-16] MEDS: amLODIPine BESYLATE 10 MG TABLET (FP) PO SCH (09:44)
[2022-06-16] MEDS: FAMOTIDINE 20 MG TABLET PO SCH (09:44)
[2022-06-16 11:07] LABS: ALBUMIN 3.3 g/dl (3.4-5.0); BLOOD UREA NITROGEN 21.4 mg/dL (7-18); CALCIUM 9.5 mg/dL (8.5-10.1)
[2022-06-16 11:13] LABS: BILIRUBIN,TOTAL 0.3 mg/dL (0.2-1)
[2022-06-16 11:14] LABS: HEMATOCRIT 39.5 % (32.4-45.2); HEMOGLOBIN 13.5 GM/dL (10.7-15.3); MCH 31.2 pg (25.7-33.7); MCHC 34.2 g/dl (32.0-36.0); MEAN CELL VOLUME 91.3 fl (80-96); MEAN PLT VOLUME 7.9 fl (7.5-11.1); PLATELET COUNT 248 10^3/uL (134-434); RBC 4.32 M/mm3 (3.60-5.2); RDW 14.4 % (11.6-15.6); WHITE BLOOD COUNT 4.1 K/mm3 (4.0-10.0)
[2022-06-16 20:32] VITALS: TEMP 97.5
[2022-06-16] MEDS: MELATONIN 5 MG TABLETS PO SCH (22:20)
[2022-06-16] MEDS: THIAMINE HCL 100 MG TABLET (FP) PO SCH (22:21)
[2022-06-17 06:23] VITALS: BP 135/66; PULSE 60; RESP 16
[2022-06-17] MEDS: PRENATAL VITAMINS W/ FOLIC ACID TABLET (FP) PO SCH (10:30)
[2022-06-17] MEDS: amLODIPine BESYLATE 10 MG TABLET (FP) PO SCH (10:30)
[2022-06-17] MEDS: HYDROCHLOROTHIAZIDE 25 MG TABLET (FP) PO SCH (10:30)
[2022-06-17] MEDS: FAMOTIDINE 20 MG TABLET PO SCH (10:30)
== END 2022-06-17 12:10 | disposition home or self-care (01) | DRG 774 ==
LOC: YASAS 08:36 → Y6N 10:46
PROVIDERS: ADMIT Allergy & Immunology; ATTEND Surgery
PROC: HZ2ZZZZ Detoxification Services for Substance Abuse Treatment (ICD-10-PCS; principal; 2022-06-15)
DX: F10.230 Alcohol dependence with withdrawal, uncomplicated (principal); F14.20 Cocaine dependence, uncomplicated; F13.20 Sedative, hypnotic or anxiolytic dependence, uncomplicated; F16.20 Hallucinogen dependence, uncomplicated; F17.210 Nicotine dependence, cigarettes, uncomplicated; I10 Essential (primary) hypertension; K21.9 Gastro-esophageal reflux disease without esophagitis; M17.0 Bilateral primary osteoarthritis of knee; M54.50 Low back pain, unspecified; G89.29 Other chronic pain; Z86.19 Personal history of other infectious and parasitic diseases
CPT/HCPCS: 36415; 80053; 85027; 86593; 86780; C9803-CS; U0003; U0005

== ENCOUNTER 2022-06-22 08:16 | Inpatient (IN) | payer OTHER ==
[2022-06-22 08:47] VITALS: BMI 20.9
[2022-06-22] MEDS ORDERED: ONDANSETRON *ODT* 4 MG TABLET SL PRN (11:58)
[2022-06-22] MEDS ORDERED: IBUPROFEN 400 MG TABLET (FP) PO PRN (11:58)
[2022-06-22] MEDS ORDERED: POLYETHYLENE GLYCOL (HEALTHYLAX) 3350 17 GM PACKET PO PRN (11:58)
[2022-06-22] MEDS ORDERED: DICYCLOMINE HCL 10 MG CAPSULE PO PRN (11:58)
[2022-06-22] MEDS ORDERED: NALOXONE HCL 0.4 MG/ML VIAL IM PRN (11:58)
[2022-06-22] MEDS ORDERED: hydrOXYzine PAMOATE 25 MG CAPSULE (FP) PO PRN (11:58)
[2022-06-22] MEDS ORDERED: MAGNESIUM HYDROX 2400MG/30ML ORAL SUSPENSION 30 ML CUP PO PRN (11:58)
[2022-06-22] MEDS ORDERED: ACETAMINOPHEN 325 MG TABLET (FP) PO PRN (11:58)
[2022-06-22] MEDS ORDERED: BENZOCAINE/MENTHOL (CHLORASEPTIC ) LOZENGE MM PRN (11:58)
[2022-06-22] MEDS ORDERED: MAG HYDROX/AL HYDROX/SIMETH 30 ML UNIT-DOSE CUP PO PRN (11:58)
[2022-06-22] MEDS ORDERED: IBUPROFEN 600 MG TABLET (FP) PO PRN (11:58)
[2022-06-22] MEDS ORDERED: guaiFENesin 600 MG TABLET.ER (FP) PO PRN (11:58)
[2022-06-22] MEDS ORDERED: NICOTINE POLACRILEX 2 MG GUM BUC PRN (11:58)
[2022-06-22] MEDS ORDERED: BENZONATATE 200 MG CAPSULE PO PRN (11:58)
[2022-06-22] MEDS ORDERED: NALOXONE HCL (KLOXXADO) 8 MG SPRAY NS PRN (11:58)
[2022-06-22] MEDS ORDERED: LOPERAMIDE HCL 2 MG CAPSULE PO PRN (11:58)
[2022-06-22] MEDS ORDERED: BISMUTH SUBSALICYLATE 524 MG/30 ML PO PRN (11:58)
[2022-06-22] MEDS ORDERED: METHOCARBAMOL 500 MG TABLET PO PRN (11:58)
[2022-06-22] MEDS ORDERED: amLODIPine BESYLATE 10 MG TABLET (FP) PO ONE (17:41)
[2022-06-22] MEDS ORDERED: HYDROCHLOROTHIAZIDE 25 MG TABLET (FP) PO ONE (17:42)
[2022-06-22] MEDS: MELATONIN 5 MG TABLETS PO SCH (22:34)
[2022-06-22] MEDS: THIAMINE HCL 100 MG TABLET (FP) PO SCH (22:34)
[2022-06-23] MEDS: NICOTINE 14 MG/24 HOURS TOPICAL PATCH TD SCH (10:43)
[2022-06-23] MEDS: amLODIPine BESYLATE 10 MG TABLET (FP) PO SCH (10:43)
[2022-06-23] MEDS: PRENATAL VITAMINS W/ FOLIC ACID TABLET (FP) PO SCH (10:43)
[2022-06-23] MEDS: FAMOTIDINE 20 MG TABLET PO SCH (10:43)
[2022-06-23] MEDS: HYDROCHLOROTHIAZIDE 25 MG TABLET (FP) PO SCH (10:43)
[2022-06-23 21:34] VITALS: RESP 18
[2022-06-23] MEDS: MELATONIN 5 MG TABLETS PO SCH (22:35)
[2022-06-23] MEDS: THIAMINE HCL 100 MG TABLET (FP) PO SCH (22:35)
[2022-06-24 08:45] VITALS: BP 143/77; PULSE 64; TEMP 98.1
[2022-06-24] MEDS: PRENATAL VITAMINS W/ FOLIC ACID TABLET (FP) PO SCH (09:29)
[2022-06-24] MEDS: NICOTINE 14 MG/24 HOURS TOPICAL PATCH TD SCH (09:29)
[2022-06-24] MEDS: HYDROCHLOROTHIAZIDE 25 MG TABLET (FP) PO SCH (09:30)
[2022-06-24] MEDS: amLODIPine BESYLATE 10 MG TABLET (FP) PO SCH (09:30)
[2022-06-24] MEDS: FAMOTIDINE 20 MG TABLET PO SCH (09:30)
[2022-06-24 11:09] LABS: ALBUMIN 3.3 g/dl (3.4-5.0); BLOOD UREA NITROGEN 23.1 mg/dL (7-18); CALCIUM 9.6 mg/dL (8.5-10.1)
[2022-06-24 11:14] LABS: BILIRUBIN,TOTAL 0.3 mg/dL (0.2-1); TOT PROT 6.9 g/dl (6.4-8.2)
[2022-06-24 11:27] LABS: HEMATOCRIT 39.9 % (32.4-45.2); HEMOGLOBIN 13.4 GM/dL (10.7-15.3); MCH 30.9 pg (25.7-33.7); MCHC 33.6 g/dl (32.0-36.0); MEAN CELL VOLUME 91.9 fl (80-96); MEAN PLT VOLUME 7.7 fl (7.5-11.1); PLATELET COUNT 284 10^3/uL (134-434); RBC 4.34 M/mm3 (3.60-5.2); RDW 14.4 % (11.6-15.6); WHITE BLOOD COUNT 3.8 K/mm3 (4.0-10.0)
== END 2022-06-24 11:33 | disposition other institution (70) | DRG 774 ==
LOC: YASAS 08:16 → Y3N 15:09 → UNDOADMIN 15:09
PROVIDERS: ADMIT Allergy & Immunology; ATTEND Surgery
PROC: HZ2ZZZZ Detoxification Services for Substance Abuse Treatment (ICD-10-PCS; principal; 2022-06-22)
DX: F10.20 Alcohol dependence, uncomplicated (principal); F14.20 Cocaine dependence, uncomplicated; F17.210 Nicotine dependence, cigarettes, uncomplicated; F31.9 Bipolar disorder, unspecified; F41.9 Anxiety disorder, unspecified; I10 Essential (primary) hypertension; K21.9 Gastro-esophageal reflux disease without esophagitis
CPT/HCPCS: 36415; 80053; 85027; 86593; 86780; 87811; C9803-CS; U0003; U0005

== ENCOUNTER 2022-07-22 11:06 | Inpatient (IN) | payer OTHER ==
[2022-07-22 12:37] VITALS: BMI 23.8
[2022-07-22] MEDS ORDERED: NICOTINE 10 MG CARTRIDGE (INHALER) IH PRN (13:21)
[2022-07-22] MEDS ORDERED: IBUPROFEN 400 MG TABLET (FP) PO PRN (13:21)
[2022-07-22] MEDS ORDERED: MAG HYDROX/AL HYDROX/SIMETH 30 ML UNIT-DOSE CUP PO PRN (13:21)
[2022-07-22] MEDS ORDERED: NALOXONE HCL (KLOXXADO) 8 MG SPRAY NS PRN (13:21)
[2022-07-22] MEDS ORDERED: BENZONATATE 200 MG CAPSULE PO PRN (13:21)
[2022-07-22] MEDS ORDERED: ONDANSETRON *ODT* 4 MG TABLET SL PRN (13:21)
[2022-07-22] MEDS ORDERED: DICYCLOMINE HCL 10 MG CAPSULE PO PRN (13:21)
[2022-07-22] MEDS ORDERED: BISMUTH SUBSALICYLATE 262 MG/15 ML BTL PO PRN (13:21)
[2022-07-22] MEDS ORDERED: NALOXONE HCL 0.4 MG/ML VIAL IM PRN (13:21)
[2022-07-22] MEDS ORDERED: AMMONIUM LACTATE 12% LOTION 225 GM BOTTLE TP PRN (13:21)
[2022-07-22] MEDS ORDERED: COLLOIDAL OATMEAL 1 BAR EACH TP PRN (13:21)
[2022-07-22] MEDS ORDERED: BENZOCAINE/MENTHOL (CHLORASEPTIC ) LOZENGE MM PRN (13:21)
[2022-07-22] MEDS ORDERED: guaiFENesin 600 MG TABLET.ER (FP) PO PRN (13:21)
[2022-07-22] MEDS ORDERED: MAGNESIUM HYDROX 2400MG/30ML ORAL SUSPENSION 30 ML CUP PO PRN (13:21)
[2022-07-22] MEDS ORDERED: IBUPROFEN 600 MG TABLET (FP) PO PRN (13:21)
[2022-07-22] MEDS ORDERED: POLYETHYLENE GLYCOL (HEALTHYLAX) 3350 17 GM PACKET PO PRN (13:21)
[2022-07-22] MEDS ORDERED: LOPERAMIDE HCL 2 MG CAPSULE PO PRN (13:21)
[2022-07-22] MEDS ORDERED: METHOCARBAMOL 500 MG TABLET PO PRN (13:21)
[2022-07-22] MEDS ORDERED: ACETAMINOPHEN 325 MG TABLET (FP) PO PRN (13:21)
[2022-07-22 14:54] VITALS: RESP 18
[2022-07-22] MEDS: MELATONIN 5 MG TABLETS PO SCH ×2 (21:46→21:49)
[2022-07-22] MEDS: THIAMINE HCL 100 MG TABLET (FP) PO SCH ×2 (21:47→21:49)
[2022-07-23] MEDS: HYDROCHLOROTHIAZIDE 25 MG TABLET (FP) PO SCH (10:36)
[2022-07-23] MEDS: PRENATAL VITAMINS W/ FOLIC ACID TABLET (FP) PO SCH (10:36)
[2022-07-23] MEDS: NICOTINE 14 MG/24 HOURS TOPICAL PATCH TD SCH (10:36)
[2022-07-23 15:32] LABS: HEMATOCRIT 38.2 % (32.4-45.2); HEMOGLOBIN 12.8 GM/dL (10.7-15.3); MCH 30.9 pg (25.7-33.7); MCHC 33.6 g/dl (32.0-36.0); MEAN PLT VOLUME 8.8 fl (7.5-11.1); PLATELET COUNT 231 10^3/uL (134-434); RBC 4.15 M/mm3 (3.60-5.2); RDW 14.6 % (11.6-15.6); WHITE BLOOD COUNT 5.8 K/mm3 (4.0-10.0)
[2022-07-23 15:51] LABS: POTASSIUM 4.2 mmol/L (3.5-5.1)
[2022-07-23 15:52] LABS: CALCIUM 9.4 mg/dL (8.5-10.1)
[2022-07-23 15:53] LABS: BLOOD UREA NITROGEN 28.8 mg/dL (7-18)
[2022-07-23 15:59] LABS: BILIRUBIN,TOTAL 0.8 mg/dL (0.2-1); TOT PROT 7.7 g/dl (6.4-8.2)
[2022-07-23] MEDS: MELATONIN 5 MG TABLETS PO SCH (21:55)
[2022-07-23] MEDS: THIAMINE HCL 100 MG TABLET (FP) PO SCH (21:55)
[2022-07-23] MEDS: hydrOXYzine PAMOATE 25 MG CAPSULE (FP) PO PRN (21:55)
[2022-07-24] MEDS: hydrOXYzine PAMOATE 25 MG CAPSULE (FP) PO PRN (07:06)
[2022-07-24 08:08] VITALS: TEMP 97.2
[2022-07-24] MEDS: NICOTINE 14 MG/24 HOURS TOPICAL PATCH TD SCH (10:42)
[2022-07-24] MEDS: PRENATAL VITAMINS W/ FOLIC ACID TABLET (FP) PO SCH (10:43)
[2022-07-24] MEDS: HYDROCHLOROTHIAZIDE 25 MG TABLET (FP) PO SCH (12:26)
[2022-07-24] MEDS ORDERED: FLUTICASONE PROP 0.05% 16 GM NASAL SPRAY NS PRN (13:21)
[2022-07-24] MEDS: MELATONIN 5 MG TABLETS PO SCH (22:26)
[2022-07-24] MEDS: THIAMINE HCL 100 MG TABLET (FP) PO SCH (22:27)
[2022-07-25] MEDS: PRENATAL VITAMINS W/ FOLIC ACID TABLET (FP) PO SCH (09:54)
[2022-07-25] MEDS: NICOTINE 14 MG/24 HOURS TOPICAL PATCH TD SCH (09:54)
[2022-07-25] MEDS: HYDROCHLOROTHIAZIDE 25 MG TABLET (FP) PO SCH (09:54)
[2022-07-25 11:17] VITALS: BP 154/86; PULSE 62
== END 2022-07-25 14:57 | disposition left against medical advice (07) | DRG 770 ==
LOC: YASAS 11:06 → Y5N 13:55
PROVIDERS: ADMIT Allergy & Immunology; ATTEND Psychiatry & Neurology Pain Medicine
PROC: HZ42ZZZ Group Counseling for Substance Abuse Treatment, Cognitive-Behavioral (ICD-10-PCS; principal; 2022-07-22)
DX: F10.20 Alcohol dependence, uncomplicated (principal); F14.20 Cocaine dependence, uncomplicated; F17.210 Nicotine dependence, cigarettes, uncomplicated; F31.9 Bipolar disorder, unspecified; I10 Essential (primary) hypertension; M17.0 Bilateral primary osteoarthritis of knee; M54.50 Low back pain, unspecified; G89.29 Other chronic pain; R09.81 Nasal congestion; R79.89 Other specified abnormal findings of blood chemistry
CPT/HCPCS: 36415; 80053; 82140; 85027; 86593; 86780; 87811; C9803-CS; U0003; U0005

== ENCOUNTER 2022-08-18 16:12 | Inpatient (IN) | payer OTHER ==
[2022-08-18 17:11] VITALS: BMI 22.6
[2022-08-18] MEDS ORDERED: LOPERAMIDE HCL 2 MG CAPSULE PO PRN (18:04)
[2022-08-18] MEDS ORDERED: NALOXONE HCL 0.4 MG/ML VIAL IM PRN (18:04)
[2022-08-18] MEDS ORDERED: ACETAMINOPHEN 325 MG TABLET (FP) PO PRN (18:04)
[2022-08-18] MEDS ORDERED: hydrOXYzine PAMOATE 25 MG CAPSULE (FP) PO PRN (18:04)
[2022-08-18] MEDS ORDERED: MAGNESIUM HYDROX 2400MG/30ML ORAL SUSPENSION 30 ML CUP PO PRN (18:04)
[2022-08-18] MEDS ORDERED: IBUPROFEN 400 MG TABLET (FP) PO PRN (18:04)
[2022-08-18] MEDS ORDERED: NALOXONE HCL (KLOXXADO) 8 MG SPRAY NS PRN (18:04)
[2022-08-18] MEDS ORDERED: DICYCLOMINE HCL 10 MG CAPSULE PO PRN (18:04)
[2022-08-18] MEDS ORDERED: BENZONATATE 200 MG CAPSULE PO PRN (18:04)
[2022-08-18] MEDS ORDERED: guaiFENesin 600 MG TABLET.ER (FP) PO PRN (18:04)
[2022-08-18] MEDS ORDERED: NICOTINE 10 MG CARTRIDGE (INHALER) IH PRN (18:04)
[2022-08-18] MEDS ORDERED: POLYETHYLENE GLYCOL (HEALTHYLAX) 3350 17 GM PACKET PO PRN (18:04)
[2022-08-18] MEDS ORDERED: MAG HYDROX/AL HYDROX/SIMETH 30 ML UNIT-DOSE CUP PO PRN (18:04)
[2022-08-18] MEDS ORDERED: IBUPROFEN 600 MG TABLET (FP) PO PRN (18:04)
[2022-08-18] MEDS ORDERED: BISMUTH SUBSALICYLATE 524 MG/30 ML PO PRN (18:04)
[2022-08-18] MEDS ORDERED: METHOCARBAMOL 500 MG TABLET PO PRN (18:04)
[2022-08-18] MEDS ORDERED: ONDANSETRON *ODT* 4 MG TABLET SL PRN (18:04)
[2022-08-18] MEDS ORDERED: BENZOCAINE/MENTHOL (CHLORASEPTIC ) LOZENGE MM PRN (18:04)
[2022-08-18] MEDS: chlordiazePOXIDE HCL 25 MG CAPSULE PO PRN (18:42)
[2022-08-18] MEDS: MELATONIN 5 MG TABLETS PO SCH (22:38)
[2022-08-18] MEDS: THIAMINE HCL 100 MG TABLET (FP) PO SCH (22:39)
[2022-08-18] MEDS: chlordiazePOXIDE HCL 25 MG CAPSULE PO SCH (22:39)
[2022-08-19] MEDS: chlordiazePOXIDE HCL 25 MG CAPSULE PO SCH ×2 (05:30→10:35)
[2022-08-19] MEDS: PRENATAL VITAMINS W/ FOLIC ACID TABLET (FP) PO SCH (10:35)
[2022-08-19] MEDS: amLODIPine BESYLATE 10 MG TABLET (FP) PO SCH (10:35)
[2022-08-19] MEDS: FAMOTIDINE 20 MG TABLET PO SCH (10:35)
[2022-08-19] MEDS: HYDROCHLOROTHIAZIDE 25 MG TABLET (FP) PO SCH (10:35)
[2022-08-19 10:49] LABS: HEMATOCRIT 38.6 % (32.4-45.2); HEMOGLOBIN 12.7 GM/dL (10.7-15.3); MCH 30.9 pg (25.7-33.7); MCHC 32.9 g/dl (32.0-36.0); MEAN CELL VOLUME 93.9 fl (80-96); MEAN PLT VOLUME 8.6 fl (7.5-11.1); PLATELET COUNT 258 10^3/uL (134-434); RBC 4.11 M/mm3 (3.60-5.2); RDW 13.7 % (11.6-15.6); WHITE BLOOD COUNT 4.7 K/mm3 (4.0-10.0)
[2022-08-19 11:20] LABS: ALBUMIN 3.2 g/dl (3.4-5.0); BLOOD UREA NITROGEN 23.8 mg/dL (7-18); CALCIUM 9.1 mg/dL (8.5-10.1)
[2022-08-19 11:23] LABS: CREATININE 1.3 mg/dL (0.55-1.3)
[2022-08-19 11:25] LABS: BILIRUBIN,TOTAL 0.2 mg/dL (0.2-1); TOT PROT 6.5 g/dl (6.4-8.2)
[2022-08-19] MEDS: chlordiazePOXIDE HCL 10 MG CAPSULE PO SCH ×2 (18:08→23:06)
[2022-08-19] MEDS: THIAMINE HCL 100 MG TABLET (FP) PO SCH (23:06)
[2022-08-19] MEDS: MELATONIN 5 MG TABLETS PO SCH (23:06)
[2022-08-20] MEDS: chlordiazePOXIDE HCL 25 MG CAPSULE PO SCH ×2 (05:09→10:37)
[2022-08-20] MEDS: chlordiazePOXIDE HCL 25 MG CAPSULE PO PRN (06:00)
[2022-08-20] MEDS: HYDROCHLOROTHIAZIDE 25 MG TABLET (FP) PO SCH (10:37)
[2022-08-20] MEDS: FAMOTIDINE 20 MG TABLET PO SCH (10:37)
[2022-08-20] MEDS: amLODIPine BESYLATE 10 MG TABLET (FP) PO SCH (10:37)
[2022-08-20] MEDS: PRENATAL VITAMINS W/ FOLIC ACID TABLET (FP) PO SCH (10:37)
[2022-08-20] MEDS: chlordiazePOXIDE 5 MG CAPSULE PO SCH ×2 (17:27→22:14)
[2022-08-20] MEDS: THIAMINE HCL 100 MG TABLET (FP) PO SCH (22:14)
[2022-08-20] MEDS: MELATONIN 5 MG TABLETS PO SCH (22:14)
[2022-08-21] MEDS ORDERED: chlordiazePOXIDE HCL 10 MG CAPSULE PO PRN
[2022-08-21] MEDS ORDERED: chlordiazePOXIDE HCL 10 MG CAPSULE PO SCH (05:00)
[2022-08-21] MEDS: chlordiazePOXIDE 5 MG CAPSULE PO SCH ×4 (05:57→22:43)
[2022-08-21] MEDS: FAMOTIDINE 20 MG TABLET PO SCH (10:38)
[2022-08-21] MEDS: HYDROCHLOROTHIAZIDE 25 MG TABLET (FP) PO SCH (10:38)
[2022-08-21] MEDS: amLODIPine BESYLATE 10 MG TABLET (FP) PO SCH (10:38)
[2022-08-21] MEDS: PRENATAL VITAMINS W/ FOLIC ACID TABLET (FP) PO SCH (10:38)
[2022-08-21] MEDS: THIAMINE HCL 100 MG TABLET (FP) PO SCH (22:43)
[2022-08-21] MEDS: MELATONIN 5 MG TABLETS PO SCH (22:43)
[2022-08-22] MEDS ORDERED: chlordiazePOXIDE HCL 10 MG CAPSULE PO SCH (05:00)
[2022-08-22] MEDS ORDERED: chlordiazePOXIDE 5 MG CAPSULE PO SCH (05:00)
[2022-08-22 09:06] VITALS: BP 131/61; PULSE 63; RESP 16; TEMP 97.8
[2022-08-22] MEDS: HYDROCHLOROTHIAZIDE 25 MG TABLET (FP) PO SCH (10:23)
[2022-08-22] MEDS: FAMOTIDINE 20 MG TABLET PO SCH (10:23)
[2022-08-22] MEDS: amLODIPine BESYLATE 10 MG TABLET (FP) PO SCH (10:23)
[2022-08-22] MEDS: PRENATAL VITAMINS W/ FOLIC ACID TABLET (FP) PO SCH (10:23)
[2022-08-22 11:47] LABS: POTASSIUM 3.9 mmol/L (3.5-5.1)
[2022-08-22 11:55] LABS: CALCIUM 9.6 mg/dL (8.5-10.1)
[2022-08-22 11:56] LABS: BLOOD UREA NITROGEN 28.1 mg/dL (7-18)
[2022-08-22 11:57] LABS: CREATININE 1.1 mg/dL (0.55-1.3)
[2022-08-22 11:59] LABS: BILIRUBIN,TOTAL 0.2 mg/dL (0.2-1)
[2022-08-23] MEDS ORDERED: chlordiazePOXIDE HCL 10 MG CAPSULE PO ONE (05:00)
[2022-08-23] MEDS ORDERED: chlordiazePOXIDE 5 MG CAPSULE PO ONE (05:00)
== END 2022-08-22 11:51 | disposition home or self-care (01) | DRG 774 ==
LOC: YASAS 16:12 → Y6N 17:58
PROVIDERS: ADMIT Allergy & Immunology; ATTEND Surgery
PROC: HZ2ZZZZ Detoxification Services for Substance Abuse Treatment (ICD-10-PCS; principal; 2022-08-18)
DX: F10.230 Alcohol dependence with withdrawal, uncomplicated (principal); F14.20 Cocaine dependence, uncomplicated; F17.210 Nicotine dependence, cigarettes, uncomplicated; F31.9 Bipolar disorder, unspecified; F20.9 Schizophrenia, unspecified; I10 Essential (primary) hypertension; K21.9 Gastro-esophageal reflux disease without esophagitis; M19.90 Unspecified osteoarthritis, unspecified site; Z86.19 Personal history of other infectious and parasitic diseases
CPT/HCPCS: 36415; 80053; 85027; 86593; 86780; 87635; Q0162

== ENCOUNTER 2022-08-28 03:45 | Inpatient (IN) | payer OTHER ==
[2022-08-28 04:06] VITALS: BMI 21.6
[2022-08-28] MEDS ORDERED: LOPERAMIDE HCL 2 MG CAPSULE PO PRN (04:37)
[2022-08-28] MEDS ORDERED: ONDANSETRON *ODT* 4 MG TABLET SL PRN (04:37)
[2022-08-28] MEDS ORDERED: POLYETHYLENE GLYCOL (HEALTHYLAX) 3350 17 GM PACKET PO PRN (04:37)
[2022-08-28] MEDS ORDERED: METHOCARBAMOL 500 MG TABLET PO PRN (04:37)
[2022-08-28] MEDS ORDERED: IBUPROFEN 400 MG TABLET (FP) PO PRN (04:37)
[2022-08-28] MEDS ORDERED: NALOXONE HCL (KLOXXADO) 8 MG SPRAY NS PRN (04:37)
[2022-08-28] MEDS ORDERED: BISMUTH SUBSALICYLATE 524 MG/30 ML PO PRN (04:37)
[2022-08-28] MEDS ORDERED: NICOTINE 10 MG CARTRIDGE (INHALER) IH PRN (04:37)
[2022-08-28] MEDS ORDERED: IBUPROFEN 600 MG TABLET (FP) PO PRN (04:37)
[2022-08-28] MEDS ORDERED: DICYCLOMINE HCL 10 MG CAPSULE PO PRN (04:37)
[2022-08-28] MEDS ORDERED: MAG HYDROX/AL HYDROX/SIMETH 30 ML UNIT-DOSE CUP PO PRN (04:37)
[2022-08-28] MEDS ORDERED: BENZOCAINE/MENTHOL (CHLORASEPTIC ) LOZENGE MM PRN (04:37)
[2022-08-28] MEDS ORDERED: BENZONATATE 200 MG CAPSULE PO PRN (04:37)
[2022-08-28] MEDS ORDERED: MAGNESIUM HYDROX 2400MG/30ML ORAL SUSPENSION 30 ML CUP PO PRN (04:37)
[2022-08-28] MEDS ORDERED: NALOXONE HCL 0.4 MG/ML VIAL IM PRN (04:37)
[2022-08-28] MEDS ORDERED: ACETAMINOPHEN 325 MG TABLET (FP) PO PRN (04:37)
[2022-08-28] MEDS ORDERED: guaiFENesin 600 MG TABLET.ER (FP) PO PRN (04:37)
[2022-08-28] MEDS ORDERED: PATIENT'S OWN MEDICATION (NON-FORMULARY) (Famotidine 40 MG Tablet) PO SCH (10:00)
[2022-08-28] MEDS: PRENATAL VITAMINS W/ FOLIC ACID TABLET (FP) PO SCH (10:31)
[2022-08-28] MEDS: HYDROCHLOROTHIAZIDE 25 MG TABLET (FP) PO SCH (10:32)
[2022-08-28] MEDS: amLODIPine BESYLATE 10 MG TABLET (FP) PO SCH (10:32)
[2022-08-28] MEDS: FAMOTIDINE 20 MG TABLET PO SCH (11:07)
[2022-08-28] MEDS ORDERED: chlordiazePOXIDE HCL 10 MG CAPSULE PO SCH ×3 (12:00→18:00)
[2022-08-28] MEDS: MELATONIN 5 MG TABLETS PO SCH (23:09)
[2022-08-28] MEDS: THIAMINE HCL 100 MG TABLET (FP) PO SCH (23:09)
[2022-08-29] MEDS ORDERED: chlordiazePOXIDE HCL 10 MG CAPSULE PO ONE (06:00)
[2022-08-29] MEDS: PRENATAL VITAMINS W/ FOLIC ACID TABLET (FP) PO SCH (09:30)
[2022-08-29] MEDS: amLODIPine BESYLATE 10 MG TABLET (FP) PO SCH (09:31)
[2022-08-29] MEDS: HYDROCHLOROTHIAZIDE 25 MG TABLET (FP) PO SCH (09:31)
[2022-08-29] MEDS: FAMOTIDINE 20 MG TABLET PO SCH (09:31)
[2022-08-29] MEDS ORDERED: cloNIDine HCL 0.1 MG TABLET PO PRN (10:35)
[2022-08-29 12:09] LABS: HEMATOCRIT 40.6 % (32.4-45.2); HEMOGLOBIN 13.5 GM/dL (10.7-15.3); MCH 31.3 pg (25.7-33.7); MCHC 33.1 g/dl (32.0-36.0); MEAN CELL VOLUME 94.4 fl (80-96); MEAN PLT VOLUME 8.6 fl (7.5-11.1); PLATELET COUNT 286 10^3/uL (134-434); RBC 4.31 M/mm3 (3.60-5.2); RDW 14.1 % (11.6-15.6)
[2022-08-29 12:41] LABS: POTASSIUM 4.3 mmol/L (3.5-5.1)
[2022-08-29 12:44] LABS: BLOOD UREA NITROGEN 26.4 mg/dL (7-18); CALCIUM 9.6 mg/dL (8.5-10.1)
[2022-08-29 12:48] LABS: CREATININE 1.2 mg/dL (0.55-1.3)
[2022-08-29 12:50] LABS: BILIRUBIN,TOTAL 0.5 mg/dL (0.2-1); TOT PROT 7.3 g/dl (6.4-8.2)
[2022-08-29 12:52] LABS: ALBUMIN 3.7 g/dl (3.4-5.0)
[2022-08-29] MEDS: MELATONIN 5 MG TABLETS PO SCH (23:04)
[2022-08-29] MEDS: THIAMINE HCL 100 MG TABLET (FP) PO SCH (23:04)
[2022-08-30] MEDS ORDERED: chlordiazePOXIDE HCL 10 MG CAPSULE PO ONE (06:00)
[2022-08-30 09:04] VITALS: BP 137/65; PULSE 60; RESP 16; TEMP 97.1
[2022-08-30] MEDS: amLODIPine BESYLATE 10 MG TABLET (FP) PO SCH (09:22)
[2022-08-30] MEDS: FAMOTIDINE 20 MG TABLET PO SCH (09:22)
[2022-08-30] MEDS: HYDROCHLOROTHIAZIDE 25 MG TABLET (FP) PO SCH (09:22)
[2022-08-30] MEDS: PRENATAL VITAMINS W/ FOLIC ACID TABLET (FP) PO SCH (09:22)
== END 2022-08-30 09:50 | disposition home or self-care (01) | DRG 774 ==
LOC: YASAS 03:45 → UNDOADMIN 05:53 → Y6N 05:53
PROVIDERS: ADMIT Allergy & Immunology; ATTEND Surgery
PROC: HZ2ZZZZ Detoxification Services for Substance Abuse Treatment (ICD-10-PCS; principal; 2022-08-28)
DX: F10.230 Alcohol dependence with withdrawal, uncomplicated (principal); F14.20 Cocaine dependence, uncomplicated; F17.210 Nicotine dependence, cigarettes, uncomplicated; I10 Essential (primary) hypertension; K21.9 Gastro-esophageal reflux disease without esophagitis; M17.11 Unilateral primary osteoarthritis, right knee; M54.50 Low back pain, unspecified; G89.29 Other chronic pain; Z86.19 Personal history of other infectious and parasitic diseases
CPT/HCPCS: 36415; 80053; 85027; 86593; 86780; 87635; 87811

== ENCOUNTER 2022-10-25 08:33 | Inpatient (IN) | payer OTHER ==
[2022-10-25 09:17] VITALS: BMI 19.3
[2022-10-25] MEDS ORDERED: NICOTINE POLACRILEX 2 MG GUM BUC PRN (11:17)
[2022-10-25] MEDS ORDERED: ACETAMINOPHEN 325 MG TABLET (FP) PO PRN (11:17)
[2022-10-25] MEDS ORDERED: POLYETHYLENE GLYCOL (HEALTHYLAX) 3350 17 GM PACKET PO PRN (11:17)
[2022-10-25] MEDS ORDERED: P-EPHED 60MG/TRIPROLIDI 2.5MG TABLET PO PRN (11:17)
[2022-10-25] MEDS ORDERED: IBUPROFEN 600 MG TABLET (FP) PO PRN (11:17)
[2022-10-25] MEDS ORDERED: COLLOIDAL OATMEAL 1 BAR EACH TP PRN (11:17)
[2022-10-25] MEDS ORDERED: LOPERAMIDE HCL 2 MG CAPSULE PO PRN (11:17)
[2022-10-25] MEDS ORDERED: BENZOCAINE/MENTHOL (CHLORASEPTIC ) LOZENGE MM PRN (11:17)
[2022-10-25] MEDS ORDERED: AMMONIUM LACTATE 12% LOTION 225 GM BOTTLE TP PRN (11:17)
[2022-10-25] MEDS ORDERED: IBUPROFEN 400 MG TABLET (FP) PO PRN (11:17)
[2022-10-25] MEDS ORDERED: MAGNESIUM HYDROX 2400MG/30ML ORAL SUSPENSION 30 ML CUP PO PRN (11:17)
[2022-10-25] MEDS ORDERED: MAG HYDROX/AL HYDROX/SIMETH 30 ML UNIT-DOSE CUP PO PRN (11:17)
[2022-10-25] MEDS ORDERED: guaiFENesin 600 MG TABLET.ER (FP) PO PRN (11:17)
[2022-10-25] MEDS ORDERED: BENZONATATE 200 MG CAPSULE PO PRN (11:17)
[2022-10-25] MEDS: amLODIPine BESYLATE 10 MG TABLET (FP) PO SCH (14:16)
[2022-10-25] MEDS: HYDROCHLOROTHIAZIDE 25 MG TABLET (FP) PO SCH (14:16)
[2022-10-25] MEDS: FAMOTIDINE 20 MG TABLET PO SCH (14:17)
[2022-10-25] MEDS ORDERED: amLODIPine BESYLATE 5 MG TABLET (FP) ONE (14:18)
[2022-10-25] MEDS ORDERED: HYDROCHLOROTHIAZIDE 12.5 MG CAPSULE (FP) ONE (14:18)
[2022-10-25 14:38] LABS: HEMATOCRIT 41.5 % (32.4-45.2); HEMOGLOBIN 13.4 GM/dL (10.7-15.3); MCH 30.5 pg (25.7-33.7); MCHC 32.3 g/dl (32.0-36.0); MEAN CELL VOLUME 94.5 fl (80-96); MEAN PLT VOLUME 8.5 fl (7.5-11.1); PLATELET COUNT 242 10^3/uL (134-434); RBC 4.39 M/mm3 (3.60-5.2); RDW 14.3 % (11.6-15.6); WHITE BLOOD COUNT 3.6 K/mm3 (4.0-10.0)
[2022-10-25 14:46] LABS: CALCIUM 9.1 mg/dL (8.5-10.1)
[2022-10-25 14:47] LABS: ALBUMIN 3.5 g/dl (3.4-5.0); BLOOD UREA NITROGEN 21.2 mg/dL (7-18)
[2022-10-25 14:49] LABS: CREATININE 1.3 mg/dL (0.55-1.3)
[2022-10-25 14:51] LABS: BILIRUBIN,TOTAL 0.3 mg/dL (0.2-1); TOT PROT 6.7 g/dl (6.4-8.2)
[2022-10-25] MEDS ORDERED: cloNIDine HCL 0.1 MG TABLET PO ONE (15:59)
[2022-10-25] MEDS: MELATONIN 5 MG TABLETS PO SCH (21:44)
[2022-10-25] MEDS: THIAMINE HCL 100 MG TABLET (FP) PO SCH (21:45)
[2022-10-26] MEDS: FAMOTIDINE 20 MG TABLET PO SCH (10:14)
[2022-10-26] MEDS: HYDROCHLOROTHIAZIDE 25 MG TABLET (FP) PO SCH (10:14)
[2022-10-26] MEDS: amLODIPine BESYLATE 10 MG TABLET (FP) PO SCH (10:14)
[2022-10-26] MEDS: PRENATAL VITAMINS W/ FOLIC ACID TABLET (FP) PO SCH (10:14)
[2022-10-26] MEDS: THIAMINE HCL 100 MG TABLET (FP) PO SCH (22:35)
[2022-10-26] MEDS: MELATONIN 5 MG TABLETS PO SCH (22:35)
[2022-10-27 10:04] LABS: EPI CELLS 16 /uL (0-25.1); HYALINE CASTS 0 /uL (0-3.1); PH,URINE 6.5 (5.0-8.0); URINE APPEARANCE CLEAR; URINE BACTERIA >9,000 /uL (0-1359); URINE BILIRUBIN NEGATIVE (NEGATIVE); URINE COLOR YELLOW; URINE GLUCOSE (UA) NEGATIVE (NEGATIVE); URINE KETONE NEGATIVE (NEGATIVE); URINE LEUK ESTERASE NEGATIVE (NEGATIVE); URINE NITRITE POSITIVE (NEGATIVE); URINE PROTEIN NEGATIVE (NEGATIVE); URINE RBC 11 /uL (0-23.9); URINE UROBILINOGEN 0.2 mg/dL (0.2-1.0); URINE WBC 15 /uL (0-25.8)
[2022-10-27] MEDS: HYDROCHLOROTHIAZIDE 25 MG TABLET (FP) PO SCH (10:19)
[2022-10-27] MEDS: PRENATAL VITAMINS W/ FOLIC ACID TABLET (FP) PO SCH (10:19)
[2022-10-27] MEDS: amLODIPine BESYLATE 10 MG TABLET (FP) PO SCH (10:19)
[2022-10-27] MEDS: FAMOTIDINE 20 MG TABLET PO SCH (10:19)
[2022-10-27] MEDS: THIAMINE HCL 100 MG TABLET (FP) PO SCH (21:38)
[2022-10-27] MEDS: MELATONIN 5 MG TABLETS PO SCH (21:38)
[2022-10-28] MEDS: FAMOTIDINE 20 MG TABLET PO SCH (10:18)
[2022-10-28] MEDS: PRENATAL VITAMINS W/ FOLIC ACID TABLET (FP) PO SCH (10:18)
[2022-10-28] MEDS: amLODIPine BESYLATE 10 MG TABLET (FP) PO SCH (10:30)
[2022-10-28] MEDS: HYDROCHLOROTHIAZIDE 25 MG TABLET (FP) PO SCH (10:30)
[2022-10-28] MEDS ORDERED: HYDROCHLOROTHIAZIDE 25 MG TABLET (FP) PO ONE (11:30)
[2022-10-28] MEDS ORDERED: amLODIPine BESYLATE 10 MG TABLET (FP) PO ONE (11:30)
[2022-10-28] MEDS: THIAMINE HCL 100 MG TABLET (FP) PO SCH (21:50)
[2022-10-28] MEDS: MELATONIN 5 MG TABLETS PO SCH (21:50)
[2022-10-29] MEDS: amLODIPine BESYLATE 10 MG TABLET (FP) PO SCH (06:46)
[2022-10-29] MEDS: HYDROCHLOROTHIAZIDE 25 MG TABLET (FP) PO SCH (06:46)
[2022-10-29] MEDS: FAMOTIDINE 20 MG TABLET PO SCH (10:06)
[2022-10-29] MEDS: PRENATAL VITAMINS W/ FOLIC ACID TABLET (FP) PO SCH (10:06)
[2022-10-29] MEDS ORDERED: METHYL SALICYLATE/MENTHOL OINT 30 GM TUBE TP PRN (10:45)
[2022-10-29] MEDS ORDERED: SULFAMETHOXAZOLE/TRIMETHOPRIM 800MG/160MG D.S. TABLET PO SCH (11:00)
[2022-10-29] MEDS: ACETAMINOPHEN 325 MG TABLET (FP) PO PRN ×2 (11:11→16:49)
[2022-10-29] MEDS: LIDOCAINE 5% TOPICAL PATCH TP PRN (11:13)
[2022-10-29] MEDS: SULFAMETHOXAZOLE/TRIMETHOPRIM 800MG/160MG D.S. TABLET PO SCH ×2 (13:26→21:13)
[2022-10-29 20:50] LABS: EPI CELLS >36 /uL (0-25.1); HYALINE CASTS 1 /uL (0-3.1); URINE APPEARANCE CLEAR; URINE BACTERIA >9,000 /uL (0-1359); URINE BILIRUBIN NEGATIVE (NEGATIVE); URINE COLOR YELLOW; URINE GLUCOSE (UA) NEGATIVE (NEGATIVE); URINE KETONE NEGATIVE (NEGATIVE); URINE LEUK ESTERASE 2+ (NEGATIVE); URINE NITRITE NEGATIVE (NEGATIVE); URINE PROTEIN TRACE (NEGATIVE); URINE UROBILINOGEN 0.2 mg/dL (0.2-1.0); URINE WBC 261 /uL (0-25.8)
[2022-10-29 20:56] LABS: URINE RBC 19.1 /uL (0-23.9)
[2022-10-29] MEDS: THIAMINE HCL 100 MG TABLET (FP) PO SCH (21:13)
[2022-10-29] MEDS: LIDOCAINE PATCH REMOVAL MC SCH (21:13)
[2022-10-29] MEDS ORDERED: QUEtiapine FUMARATE 50 MG TABLET PO SCH (22:00)
[2022-10-30] MEDS: ACETAMINOPHEN 325 MG TABLET (FP) PO PRN (06:55)
[2022-10-30] MEDS: HYDROCHLOROTHIAZIDE 25 MG TABLET (FP) PO SCH (06:55)
[2022-10-30] MEDS: amLODIPine BESYLATE 10 MG TABLET (FP) PO SCH (06:55)
[2022-10-30 07:14] VITALS: RESP 18
[2022-10-30] MEDS: PRENATAL VITAMINS W/ FOLIC ACID TABLET (FP) PO SCH (09:59)
[2022-10-30] MEDS: FAMOTIDINE 20 MG TABLET PO SCH (09:59)
[2022-10-30] MEDS: SULFAMETHOXAZOLE/TRIMETHOPRIM 800MG/160MG D.S. TABLET PO SCH ×2 (09:59→21:17)
[2022-10-30] MEDS: LIDOCAINE 5% TOPICAL PATCH TP PRN (10:00)
[2022-10-30 10:07] LABS: ALBUMIN 3.4 g/dl (3.4-5.0); BLOOD UREA NITROGEN 36.8 mg/dL (7-18); PHOSPHOROUS 4.1 mg/dL (2.5-4.9)
[2022-10-30 10:08] LABS: BILIRUBIN,TOTAL 0.2 mg/dL (0.2-1); TOT PROT 6.7 g/dl (6.4-8.2)
[2022-10-30 10:10] LABS: CALCIUM 9.3 mg/dL (8.5-10.1); CREATININE 1.3 mg/dL (0.55-1.3)
[2022-10-30] MEDS: THIAMINE HCL 100 MG TABLET (FP) PO SCH (21:17)
[2022-10-30] MEDS: LIDOCAINE PATCH REMOVAL MC SCH (21:17)
[2022-10-30] MEDS: QUEtiapine FUMARATE 100 MG TABLET (FP) PO SCH (21:17)
[2022-10-31] MEDS: HYDROCHLOROTHIAZIDE 25 MG TABLET (FP) PO SCH (07:52)
[2022-10-31] MEDS: amLODIPine BESYLATE 10 MG TABLET (FP) PO SCH (07:52)
[2022-10-31] MEDS: ACETAMINOPHEN 325 MG TABLET (FP) PO PRN (07:53)
[2022-10-31] MEDS: SULFAMETHOXAZOLE/TRIMETHOPRIM 800MG/160MG D.S. TABLET PO SCH ×2 (10:20→21:23)
[2022-10-31] MEDS: FAMOTIDINE 20 MG TABLET PO SCH (10:20)
[2022-10-31] MEDS: PRENATAL VITAMINS W/ FOLIC ACID TABLET (FP) PO SCH (10:20)
[2022-10-31] MEDS: LIDOCAINE 5% TOPICAL PATCH TP PRN (10:21)
[2022-10-31] MEDS: THIAMINE HCL 100 MG TABLET (FP) PO SCH (21:23)
[2022-10-31] MEDS: QUEtiapine FUMARATE 100 MG TABLET (FP) PO SCH (21:23)
[2022-10-31] MEDS: LIDOCAINE PATCH REMOVAL MC SCH (21:57)
[2022-11-01] MEDS: HYDROCHLOROTHIAZIDE 25 MG TABLET (FP) PO SCH (07:01)
[2022-11-01] MEDS: amLODIPine BESYLATE 10 MG TABLET (FP) PO SCH (07:01)
[2022-11-01] MEDS: FAMOTIDINE 20 MG TABLET PO SCH (10:02)
[2022-11-01] MEDS: SULFAMETHOXAZOLE/TRIMETHOPRIM 800MG/160MG D.S. TABLET PO SCH ×2 (10:02→21:17)
[2022-11-01] MEDS: PRENATAL VITAMINS W/ FOLIC ACID TABLET (FP) PO SCH (10:02)
[2022-11-01] MEDS: ACETAMINOPHEN 325 MG TABLET (FP) PO PRN (19:05)
[2022-11-01] MEDS: THIAMINE HCL 100 MG TABLET (FP) PO SCH (21:17)
[2022-11-01] MEDS: QUEtiapine FUMARATE 100 MG TABLET (FP) PO SCH (21:17)
[2022-11-01] MEDS: LIDOCAINE PATCH REMOVAL MC SCH (21:51)
[2022-11-02] MEDS: SULFAMETHOXAZOLE/TRIMETHOPRIM 800MG/160MG D.S. TABLET PO SCH ×2 (09:54→21:33)
[2022-11-02] MEDS: PRENATAL VITAMINS W/ FOLIC ACID TABLET (FP) PO SCH (09:54)
[2022-11-02] MEDS: FAMOTIDINE 20 MG TABLET PO SCH (09:55)
[2022-11-02] MEDS: amLODIPine BESYLATE 10 MG TABLET (FP) PO SCH (10:01)
[2022-11-02] MEDS: HYDROCHLOROTHIAZIDE 25 MG TABLET (FP) PO SCH (10:01)
[2022-11-02] MEDS: QUEtiapine FUMARATE 100 MG TABLET (FP) PO SCH (21:32)
[2022-11-02] MEDS: LIDOCAINE PATCH REMOVAL MC SCH (21:32)
[2022-11-02] MEDS: THIAMINE HCL 100 MG TABLET (FP) PO SCH (21:32)
[2022-11-03] MEDS: HYDROCHLOROTHIAZIDE 25 MG TABLET (FP) PO SCH (07:57)
[2022-11-03] MEDS: amLODIPine BESYLATE 10 MG TABLET (FP) PO SCH (07:58)
[2022-11-03] MEDS: SULFAMETHOXAZOLE/TRIMETHOPRIM 800MG/160MG D.S. TABLET PO SCH ×2 (09:48→21:12)
[2022-11-03] MEDS: PRENATAL VITAMINS W/ FOLIC ACID TABLET (FP) PO SCH (09:48)
[2022-11-03] MEDS: FAMOTIDINE 20 MG TABLET PO SCH (09:48)
[2022-11-03] MEDS: QUEtiapine FUMARATE 100 MG TABLET (FP) PO SCH (21:12)
[2022-11-03] MEDS: LIDOCAINE PATCH REMOVAL MC SCH (21:13)
[2022-11-03] MEDS: THIAMINE HCL 100 MG TABLET (FP) PO SCH (21:13)
[2022-11-04 06:44] VITALS: TEMP 98
[2022-11-04] MEDS: HYDROCHLOROTHIAZIDE 25 MG TABLET (FP) PO SCH (06:45)
[2022-11-04] MEDS: amLODIPine BESYLATE 10 MG TABLET (FP) PO SCH (06:45)
[2022-11-04] MEDS: SULFAMETHOXAZOLE/TRIMETHOPRIM 800MG/160MG D.S. TABLET PO SCH ×2 (09:50→21:15)
[2022-11-04] MEDS: PRENATAL VITAMINS W/ FOLIC ACID TABLET (FP) PO SCH (09:50)
[2022-11-04] MEDS: FAMOTIDINE 20 MG TABLET PO SCH (09:50)
[2022-11-04] MEDS: LIDOCAINE 5% TOPICAL PATCH TP PRN (09:51)
[2022-11-04] MEDS: QUEtiapine FUMARATE 100 MG TABLET (FP) PO SCH (21:15)
[2022-11-04] MEDS: THIAMINE HCL 100 MG TABLET (FP) PO SCH (21:15)
[2022-11-04] MEDS: LIDOCAINE PATCH REMOVAL MC SCH (21:16)
[2022-11-05] MEDS: HYDROCHLOROTHIAZIDE 25 MG TABLET (FP) PO SCH (08:16)
[2022-11-05] MEDS: amLODIPine BESYLATE 10 MG TABLET (FP) PO SCH (08:16)
[2022-11-05] MEDS: FAMOTIDINE 20 MG TABLET PO SCH (10:24)
[2022-11-05] MEDS: SULFAMETHOXAZOLE/TRIMETHOPRIM 800MG/160MG D.S. TABLET PO SCH (10:24)
[2022-11-05] MEDS: PRENATAL VITAMINS W/ FOLIC ACID TABLET (FP) PO SCH (10:25)
[2022-11-05 11:23] VITALS: BP 116/57; PULSE 75
== END 2022-11-05 12:08 | disposition home or self-care (01) | DRG 772 ==
LOC: YASAS 08:33 → Y5N 12:36
PROVIDERS: ADMIT Allergy & Immunology; ATTEND Psychiatry & Neurology Pain Medicine
PROC: HZ42ZZZ Group Counseling for Substance Abuse Treatment, Cognitive-Behavioral (ICD-10-PCS; principal; 2022-10-25)
DX: F10.20 Alcohol dependence, uncomplicated (principal); F14.20 Cocaine dependence, uncomplicated; F17.210 Nicotine dependence, cigarettes, uncomplicated; F31.9 Bipolar disorder, unspecified; F41.9 Anxiety disorder, unspecified; F43.81 Prolonged grief disorder; I10 Essential (primary) hypertension; K21.9 Gastro-esophageal reflux disease without esophagitis; M16.11 Unilateral primary osteoarthritis, right hip; M17.0 Bilateral primary osteoarthritis of knee; M54.50 Low back pain, unspecified; G89.29 Other chronic pain; R82.71 Bacteriuria; R76.11 Nonspecific reaction to tuberculin skin test without active tuberculosis; Z86.19 Personal history of other infectious and parasitic diseases; Z91.81 History of falling
CPT/HCPCS: 36415; 73502-TC-RT-FY; 80053; 81003; 82652; 83735; 84100; 85027; 87086; 87186; 87635

== ENCOUNTER 2023-01-13 15:08 | Inpatient (IN) | payer OTHER ==
[2023-01-13 15:42] VITALS: BMI 24.2
[2023-01-13] MEDS ORDERED: NALOXONE HCL 0.4 MG/ML VIAL IM PRN (18:49)
[2023-01-13] MEDS ORDERED: DICYCLOMINE HCL 10 MG CAPSULE PO PRN (18:49)
[2023-01-13] MEDS ORDERED: MAGNESIUM HYDROX 2400MG/30ML ORAL SUSPENSION 30 ML CUP PO PRN (18:49)
[2023-01-13] MEDS ORDERED: NALOXONE HCL (KLOXXADO) 8 MG SPRAY NS PRN (18:49)
[2023-01-13] MEDS ORDERED: guaiFENesin 600 MG TABLET.ER (FP) PO PRN (18:49)
[2023-01-13] MEDS ORDERED: POLYETHYLENE GLYCOL (HEALTHYLAX) 3350 17 GM PACKET PO PRN (18:49)
[2023-01-13] MEDS ORDERED: MAG HYDROX/AL HYDROX/SIMETH 30 ML UNIT-DOSE CUP PO PRN (18:49)
[2023-01-13] MEDS ORDERED: BENZONATATE 200 MG CAPSULE PO PRN (18:49)
[2023-01-13] MEDS ORDERED: hydrOXYzine PAMOATE 25 MG CAPSULE (FP) PO PRN (18:49)
[2023-01-13] MEDS ORDERED: IBUPROFEN 600 MG TABLET (FP) PO PRN (18:49)
[2023-01-13] MEDS ORDERED: IBUPROFEN 400 MG TABLET (FP) PO PRN (18:49)
[2023-01-13] MEDS ORDERED: LOPERAMIDE HCL 2 MG CAPSULE PO PRN (18:49)
[2023-01-13] MEDS ORDERED: BENZOCAINE/MENTHOL (CHLORASEPTIC ) LOZENGE MM PRN (18:49)
[2023-01-13] MEDS ORDERED: BISMUTH SUBSALICYLATE 524 MG/30 ML PO PRN (18:49)
[2023-01-13] MEDS ORDERED: ACETAMINOPHEN 325 MG TABLET (FP) PO PRN (18:49)
[2023-01-13] MEDS ORDERED: ONDANSETRON *ODT* 4 MG TABLET SL PRN (18:49)
[2023-01-13] MEDS: METHOCARBAMOL 500 MG TABLET PO PRN (21:44)
[2023-01-13] MEDS: MELATONIN 5 MG TABLETS PO SCH (21:44)
[2023-01-13] MEDS: THIAMINE HCL 100 MG TABLET (FP) PO SCH (21:44)
[2023-01-14] MEDS: PRENATAL VITAMINS W/ FOLIC ACID TABLET (FP) PO SCH (10:24)
[2023-01-14 10:49] LABS: HEMATOCRIT 34.5 % (32.4-45.2); HEMOGLOBIN 11.2 GM/dL (10.7-15.3); MCH 30.6 pg (25.7-33.7); MCHC 32.5 g/dl (32.0-36.0); MEAN CELL VOLUME 94.1 fl (80-96); MEAN PLT VOLUME 7.5 fl (7.5-11.1); PLATELET COUNT 290 10^3/uL (134-434); RBC 3.67 M/mm3 (3.60-5.2); RDW 14.1 % (11.6-15.6); WHITE BLOOD COUNT 5.5 K/mm3 (4.0-10.0)
[2023-01-14 10:50] LABS: CHLORIDE 111 mmol/L (98-107); POTASSIUM 3.7 mmol/L (3.5-5.1); SODIUM 140 mmol/L (136-145)
[2023-01-14 10:57] LABS: ANION GAP 3 mmol/L (4-13); BLOOD UREA NITROGEN 24.2 mg/dL (7-18); CALCIUM 9.3 mg/dL (8.5-10.1); CO2 27 mmol/L (21-32); GLUCOSE,RANDOM 93 mg/dL (74-106)
[2023-01-14 10:58] LABS: ALBUMIN 3.4 g/dl (3.4-5.0)
[2023-01-14 11:00] LABS: SGPT/ALT 29 U/L (13-61)
[2023-01-14 11:01] LABS: CREATININE 1.4 mg/dL (0.55-1.3); SGOT/AST 17 U/L (15-37)
[2023-01-14 11:02] LABS: BILIRUBIN,TOTAL 0.4 mg/dL (0.2-1); TOT PROT 6.6 g/dl (6.4-8.2)
[2023-01-14 11:03] LABS: ALK PHOS 91 U/L (45-117)
[2023-01-14] MEDS: MELATONIN 5 MG TABLETS PO SCH (22:23)
[2023-01-14] MEDS: METHOCARBAMOL 500 MG TABLET PO PRN (22:23)
[2023-01-14] MEDS: THIAMINE HCL 100 MG TABLET (FP) PO SCH (22:23)
[2023-01-15 08:41] VITALS: RESP 18
[2023-01-15] MEDS: PRENATAL VITAMINS W/ FOLIC ACID TABLET (FP) PO SCH (10:28)
[2023-01-15 13:27] VITALS: BP 136/74; PULSE 68; TEMP 97.4
== END 2023-01-15 15:31 | disposition other institution (70) | DRG 774 ==
LOC: YASAS 15:08 → Y3N 21:16 → UNDOADMIN 21:16
PROVIDERS: ADMIT Allergy & Immunology; ATTEND Surgery
PROC: HZ2ZZZZ Detoxification Services for Substance Abuse Treatment (ICD-10-PCS; principal; 2023-01-13)
DX: F10.230 Alcohol dependence with withdrawal, uncomplicated (principal); F14.20 Cocaine dependence, uncomplicated; F17.210 Nicotine dependence, cigarettes, uncomplicated; K21.9 Gastro-esophageal reflux disease without esophagitis; M17.0 Bilateral primary osteoarthritis of knee; M54.50 Low back pain, unspecified; G89.29 Other chronic pain; Z86.59 Personal history of other mental and behavioral disorders
CPT/HCPCS: 36415; 80053; 80307; 85027; 86593; 86780; 87635

== ENCOUNTER 2023-01-15 16:48 | Inpatient (IN) | payer OTHER ==
[2023-01-15] MEDS ORDERED: BENZOCAINE/MENTHOL (CHLORASEPTIC ) LOZENGE MM PRN (18:12)
[2023-01-15] MEDS ORDERED: MAGNESIUM HYDROX 2400MG/30ML ORAL SUSPENSION 30 ML CUP PO PRN (18:12)
[2023-01-15] MEDS ORDERED: ACETAMINOPHEN 325 MG TABLET (FP) PO PRN (18:12)
[2023-01-15] MEDS ORDERED: METHOCARBAMOL 500 MG TABLET PO PRN (18:12)
[2023-01-15] MEDS ORDERED: POLYETHYLENE GLYCOL (HEALTHYLAX) 3350 17 GM PACKET PO PRN (18:12)
[2023-01-15] MEDS ORDERED: COLLOIDAL OATMEAL 1 BAR EACH TP PRN (18:12)
[2023-01-15] MEDS ORDERED: NALOXONE HCL 0.4 MG/ML VIAL IVPUSH PRN (18:12)
[2023-01-15] MEDS ORDERED: IBUPROFEN 600 MG TABLET (FP) PO PRN (18:12)
[2023-01-15] MEDS ORDERED: guaiFENesin 600 MG TABLET.ER (FP) PO PRN (18:12)
[2023-01-15] MEDS ORDERED: hydrOXYzine PAMOATE 25 MG CAPSULE (FP) PO PRN (18:12)
[2023-01-15] MEDS ORDERED: NALOXONE HCL (KLOXXADO) 8 MG SPRAY NS PRN (18:12)
[2023-01-15] MEDS ORDERED: IBUPROFEN 400 MG TABLET (FP) PO PRN (18:12)
[2023-01-15] MEDS ORDERED: MAG HYDROX/AL HYDROX/SIMETH 30 ML UNIT-DOSE CUP PO PRN (18:12)
[2023-01-15] MEDS ORDERED: BENZONATATE 200 MG CAPSULE PO PRN (18:12)
[2023-01-15] MEDS ORDERED: LOPERAMIDE HCL 2 MG CAPSULE PO PRN (18:12)
[2023-01-15] MEDS: THIAMINE HCL 100 MG TABLET (FP) PO SCH (23:02)
[2023-01-15] MEDS: MELATONIN 5 MG TABLETS PO SCH (23:02)
[2023-01-16] MEDS: PRENATAL VITAMINS W/ FOLIC ACID TABLET (FP) PO SCH (10:09)
[2023-01-16] MEDS: MELATONIN 5 MG TABLETS PO SCH (21:48)
[2023-01-16] MEDS: THIAMINE HCL 100 MG TABLET (FP) PO SCH (21:49)
[2023-01-17 07:24] VITALS: BP 157/89; PULSE 67; RESP 18; TEMP 97.4
[2023-01-17] MEDS: PRENATAL VITAMINS W/ FOLIC ACID TABLET (FP) PO SCH (10:43)
== END 2023-01-17 12:15 | disposition left against medical advice (07) | DRG 770 ==
LOC: YASAS 16:48 → Y5N 16:49
PROVIDERS: ADMIT Allergy & Immunology; ATTEND Psychiatry & Neurology Pain Medicine
PROC: HZ42ZZZ Group Counseling for Substance Abuse Treatment, Cognitive-Behavioral (ICD-10-PCS; principal; 2023-01-15)
DX: F10.20 Alcohol dependence, uncomplicated (principal); F14.20 Cocaine dependence, uncomplicated; F17.210 Nicotine dependence, cigarettes, uncomplicated; I10 Essential (primary) hypertension; K21.9 Gastro-esophageal reflux disease without esophagitis; M17.0 Bilateral primary osteoarthritis of knee; M54.50 Low back pain, unspecified; G89.29 Other chronic pain; Z86.59 Personal history of other mental and behavioral disorders; Z91.199 Patient's noncompliance with other medical treatment and regimen due to unspecified reason

== ENCOUNTER 2023-01-25 04:41 | Inpatient (IN) | payer OTHER ==
[2023-01-25 04:57] VITALS: BMI 22.4
[2023-01-25] MEDS ORDERED: BENZONATATE 200 MG CAPSULE PO PRN (05:28)
[2023-01-25] MEDS ORDERED: NALOXONE HCL (KLOXXADO) 8 MG SPRAY NS PRN (05:28)
[2023-01-25] MEDS ORDERED: BISMUTH SUBSALICYLATE 524 MG/30 ML PO PRN (05:28)
[2023-01-25] MEDS ORDERED: POLYETHYLENE GLYCOL (HEALTHYLAX) 3350 17 GM PACKET PO PRN (05:28)
[2023-01-25] MEDS ORDERED: LOPERAMIDE HCL 2 MG CAPSULE PO PRN (05:28)
[2023-01-25] MEDS ORDERED: IBUPROFEN 400 MG TABLET (FP) PO PRN (05:28)
[2023-01-25] MEDS ORDERED: NICOTINE POLACRILEX 4 MG GUM BUC PRN (05:28)
[2023-01-25] MEDS ORDERED: ONDANSETRON *ODT* 4 MG TABLET SL PRN (05:28)
[2023-01-25] MEDS ORDERED: NALOXONE HCL 0.4 MG/ML VIAL IM PRN (05:28)
[2023-01-25] MEDS ORDERED: ACETAMINOPHEN 325 MG TABLET (FP) PO PRN (05:28)
[2023-01-25] MEDS ORDERED: MAGNESIUM HYDROX 2400MG/30ML ORAL SUSPENSION 30 ML CUP PO PRN (05:28)
[2023-01-25] MEDS ORDERED: BENZOCAINE/MENTHOL (CHLORASEPTIC ) LOZENGE MM PRN (05:28)
[2023-01-25] MEDS ORDERED: MAG HYDROX/AL HYDROX/SIMETH 30 ML UNIT-DOSE CUP PO PRN (05:28)
[2023-01-25] MEDS ORDERED: IBUPROFEN 600 MG TABLET (FP) PO PRN (05:28)
[2023-01-25] MEDS ORDERED: DICYCLOMINE HCL 10 MG CAPSULE PO PRN (05:28)
[2023-01-25] MEDS ORDERED: guaiFENesin 600 MG TABLET.ER (FP) PO PRN (05:28)
[2023-01-25] MEDS ORDERED: amLODIPine BESYLATE 5 MG TABLET (FP) ONE (05:32)
[2023-01-25] MEDS ORDERED: HYDROCHLOROTHIAZIDE 12.5 MG CAPSULE (FP) ONE (05:33)
[2023-01-25] MEDS: HYDROCHLOROTHIAZIDE 25 MG TABLET (FP) PO SCH (06:17)
[2023-01-25] MEDS: amLODIPine BESYLATE 10 MG TABLET (FP) PO SCH (06:17)
[2023-01-25] MEDS: PRENATAL VITAMINS W/ FOLIC ACID TABLET (FP) PO SCH (09:48)
[2023-01-25] MEDS: NICOTINE 14 MG/24 HOURS TOPICAL PATCH TD SCH (09:50)
[2023-01-25] MEDS: THIAMINE HCL 100 MG TABLET (FP) PO SCH (22:28)
[2023-01-25] MEDS: MELATONIN 5 MG TABLETS PO SCH (22:28)
[2023-01-26] MEDS: HYDROCHLOROTHIAZIDE 25 MG TABLET (FP) PO SCH (05:54)
[2023-01-26] MEDS: amLODIPine BESYLATE 10 MG TABLET (FP) PO SCH (05:54)
[2023-01-26] MEDS: NICOTINE 14 MG/24 HOURS TOPICAL PATCH TD SCH (09:28)
[2023-01-26] MEDS: PRENATAL VITAMINS W/ FOLIC ACID TABLET (FP) PO SCH (09:28)
[2023-01-26] MEDS ORDERED: BACITRACIN 0.9 GM PACKET TP ONE (17:50)
[2023-01-26] MEDS: THIAMINE HCL 100 MG TABLET (FP) PO SCH (22:42)
[2023-01-26] MEDS: MELATONIN 5 MG TABLETS PO SCH (22:42)
[2023-01-27] MEDS: HYDROCHLOROTHIAZIDE 25 MG TABLET (FP) PO SCH (05:40)
[2023-01-27] MEDS: amLODIPine BESYLATE 10 MG TABLET (FP) PO SCH (05:41)
[2023-01-27 08:58] VITALS: BP 129/67; PULSE 69; RESP 18; TEMP 97.3
[2023-01-27] MEDS: PRENATAL VITAMINS W/ FOLIC ACID TABLET (FP) PO SCH (10:15)
[2023-01-27] MEDS: NICOTINE 14 MG/24 HOURS TOPICAL PATCH TD SCH (10:16)
== END 2023-01-27 10:25 | disposition home or self-care (01) | DRG 774 ==
LOC: YASAS 04:41 → Y6N 05:52
PROVIDERS: ADMIT Allergy & Immunology; ATTEND Allergy & Immunology
PROC: HZ2ZZZZ Detoxification Services for Substance Abuse Treatment (ICD-10-PCS; principal; 2023-01-25)
DX: F10.20 Alcohol dependence, uncomplicated (principal); F14.20 Cocaine dependence, uncomplicated; F17.210 Nicotine dependence, cigarettes, uncomplicated; G47.00 Insomnia, unspecified; I10 Essential (primary) hypertension; Z86.11 Personal history of tuberculosis; Z91.148 Patient's other noncompliance with medication regimen for other reason
CPT/HCPCS: 36415; 80307; 87635

== ENCOUNTER 2023-04-02 01:21 | Inpatient (IN) | payer OTHER ==
[2023-04-02 01:52] VITALS: BMI 23.3
[2023-04-02] MEDS ORDERED: guaiFENesin 600 MG TABLET.ER (FP) PO PRN (02:26)
[2023-04-02] MEDS ORDERED: BENZONATATE 200 MG CAPSULE PO PRN (02:26)
[2023-04-02] MEDS ORDERED: DICYCLOMINE HCL 10 MG CAPSULE PO PRN (02:26)
[2023-04-02] MEDS ORDERED: ONDANSETRON *ODT* 4 MG TABLET SL PRN (02:26)
[2023-04-02] MEDS ORDERED: BISMUTH SUBSALICYLATE 524 MG/30 ML PO PRN (02:26)
[2023-04-02] MEDS ORDERED: ACETAMINOPHEN 325 MG TABLET (FP) PO PRN (02:26)
[2023-04-02] MEDS ORDERED: MAG HYDROX/AL HYDROX/SIMETH 30 ML UNIT-DOSE CUP PO PRN (02:26)
[2023-04-02] MEDS ORDERED: NICOTINE POLACRILEX 2 MG GUM BUC PRN (02:26)
[2023-04-02] MEDS ORDERED: MAGNESIUM HYDROX 2400MG/30ML ORAL SUSPENSION 30 ML CUP PO PRN (02:26)
[2023-04-02] MEDS ORDERED: IBUPROFEN 400 MG TABLET (FP) PO PRN (02:26)
[2023-04-02] MEDS ORDERED: NALOXONE HCL 0.4 MG/ML VIAL IM PRN (02:26)
[2023-04-02] MEDS ORDERED: LOPERAMIDE HCL 2 MG CAPSULE PO PRN (02:26)
[2023-04-02] MEDS ORDERED: POLYETHYLENE GLYCOL (HEALTHYLAX) 3350 17 GM PACKET PO PRN (02:26)
[2023-04-02] MEDS ORDERED: BENZOCAINE/MENTHOL (CHLORASEPTIC ) LOZENGE MM PRN (02:26)
[2023-04-02] MEDS ORDERED: NALOXONE HCL (KLOXXADO) 8 MG SPRAY NS PRN (02:26)
[2023-04-02] MEDS: amLODIPine BESYLATE 10 MG TABLET (FP) PO SCH (10:38)
[2023-04-02] MEDS: HYDROCHLOROTHIAZIDE 25 MG TABLET (FP) PO SCH (10:39)
[2023-04-02] MEDS: NICOTINE 14 MG/24 HOURS TOPICAL PATCH TD SCH (10:39)
[2023-04-02] MEDS: PRENATAL VITAMINS W/ FOLIC ACID TABLET (FP) PO SCH (10:39)
[2023-04-02 11:38] LABS: HIV INTERPRETATION NEGATIVE (NEGATIVE)
[2023-04-02] MEDS ORDERED: THIAMINE HCL 100 MG TABLET (FP) PO SCH (22:00)
[2023-04-02] MEDS ORDERED: MELATONIN 5 MG TABLETS PO SCH (22:00)
[2023-04-02] MEDS: IBUPROFEN 600 MG TABLET (FP) PO PRN (22:49)
[2023-04-03 08:57] VITALS: BP 145/73; PULSE 65; RESP 18; TEMP 97.7
[2023-04-03] MEDS: IBUPROFEN 600 MG TABLET (FP) PO PRN (09:30)
[2023-04-03] MEDS: amLODIPine BESYLATE 10 MG TABLET (FP) PO SCH (09:30)
[2023-04-03] MEDS: HYDROCHLOROTHIAZIDE 25 MG TABLET (FP) PO SCH (09:30)
[2023-04-03] MEDS: PRENATAL VITAMINS W/ FOLIC ACID TABLET (FP) PO SCH (09:30)
[2023-04-03] MEDS: NICOTINE 14 MG/24 HOURS TOPICAL PATCH TD SCH (09:30)
[2023-04-03 11:09] LABS: HEMATOCRIT 33.9 % (32.4-45.2); HEMOGLOBIN 11.1 GM/dL (10.7-15.3); MCH 30.5 pg (25.7-33.7); MCHC 32.8 g/dl (32.0-36.0); MEAN CELL VOLUME 93.2 fl (80-96); PLATELET COUNT 248 10^3/uL (134-434); RBC 3.64 M/mm3 (3.60-5.2); RDW 14.4 % (11.6-15.6)
[2023-04-03 11:58] LABS: POTASSIUM 4.2 mmol/L (3.5-5.1)
[2023-04-03 12:01] LABS: ALBUMIN 2.7 g/dl (3.4-5.0); BLOOD UREA NITROGEN 27.4 mg/dL (7-18)
[2023-04-03 12:03] LABS: CALCIUM 8.5 mg/dL (8.5-10.1)
[2023-04-03 12:04] LABS: CREATININE 1.1 mg/dL (0.55-1.3)
[2023-04-03 12:06] LABS: BILIRUBIN,TOTAL 0.3 mg/dL (0.2-1); TOT PROT 5.8 g/dl (6.4-8.2)
== END 2023-04-03 14:10 | disposition other institution (70) | DRG 774 ==
LOC: YASAS 01:21 → Y3N 03:12
PROVIDERS: ADMIT Allergy & Immunology; ATTEND Allergy & Immunology
PROC: HZ2ZZZZ Detoxification Services for Substance Abuse Treatment (ICD-10-PCS; principal; 2023-04-02)
DX: F14.20 Cocaine dependence, uncomplicated (principal); F10.20 Alcohol dependence, uncomplicated; F10.220 Alcohol dependence with intoxication, uncomplicated; F17.210 Nicotine dependence, cigarettes, uncomplicated; I10 Essential (primary) hypertension; K21.9 Gastro-esophageal reflux disease without esophagitis; M17.0 Bilateral primary osteoarthritis of knee; M54.50 Low back pain, unspecified; G89.29 Other chronic pain; Z86.19 Personal history of other infectious and parasitic diseases; Z86.59 Personal history of other mental and behavioral disorders; Z91.199 Patient's noncompliance with other medical treatment and regimen due to unspecified reason
CPT/HCPCS: 36415; 80053; 80307; 85027; 86593; 86780; 87389; 87635; 93005; 93010

== ENCOUNTER 2023-04-16 15:30 | Inpatient (IN) | payer OTHER ==
[2023-04-16 16:35] VITALS: BMI 22.6
[2023-04-16] MEDS ORDERED: MAG HYDROX/AL HYDROX/SIMETH 30 ML UNIT-DOSE CUP PO PRN (19:05)
[2023-04-16] MEDS ORDERED: IBUPROFEN 400 MG TABLET (FP) PO PRN (19:05)
[2023-04-16] MEDS ORDERED: BENZOCAINE/MENTHOL (CHLORASEPTIC ) LOZENGE MM PRN (19:05)
[2023-04-16] MEDS ORDERED: NICOTINE POLACRILEX 2 MG GUM BUC PRN (19:05)
[2023-04-16] MEDS ORDERED: BENZONATATE 200 MG CAPSULE PO PRN (19:05)
[2023-04-16] MEDS ORDERED: NALOXONE HCL 0.4 MG/ML VIAL IM PRN (19:05)
[2023-04-16] MEDS ORDERED: guaiFENesin 600 MG TABLET.ER (FP) PO PRN (19:05)
[2023-04-16] MEDS ORDERED: MAGNESIUM HYDROX 2400MG/30ML ORAL SUSPENSION 30 ML CUP PO PRN (19:05)
[2023-04-16] MEDS ORDERED: NALOXONE HCL (KLOXXADO) 8 MG SPRAY NS PRN (19:05)
[2023-04-16] MEDS ORDERED: POLYETHYLENE GLYCOL (HEALTHYLAX) 3350 17 GM PACKET PO PRN (19:05)
[2023-04-16] MEDS ORDERED: LOPERAMIDE HCL 2 MG CAPSULE PO PRN (19:05)
[2023-04-16] MEDS ORDERED: amLODIPine BESYLATE 5 MG TABLET (FP) ONE (19:19)
[2023-04-16] MEDS: amLODIPine BESYLATE 5 MG TABLET (FP) PO ONE (19:21)
[2023-04-16] MEDS ORDERED: IBUPROFEN 600 MG TABLET (FP) PO ONE (19:25)
[2023-04-16] MEDS: IBUPROFEN 600 MG TABLET (FP) PO PRN (19:25)
[2023-04-16] MEDS: MELATONIN 5 MG TABLETS PO SCH (22:35)
[2023-04-16] MEDS: THIAMINE HCL 100 MG TABLET (FP) PO SCH (22:35)
[2023-04-17] MEDS: hydrOXYzine PAMOATE 25 MG CAPSULE (FP) PO PRN (00:13)
[2023-04-17] MEDS: ACETAMINOPHEN 325 MG TABLET (FP) PO PRN (00:13)
[2023-04-17] MEDS: amLODIPine BESYLATE 10 MG TABLET (FP) PO SCH (10:29)
[2023-04-17] MEDS: HYDROCHLOROTHIAZIDE 25 MG TABLET (FP) PO SCH (10:29)
[2023-04-17] MEDS: PRENATAL VITAMINS W/ FOLIC ACID TABLET (FP) PO SCH (10:29)
[2023-04-21 06:49] VITALS: TEMP 97.7
[2023-04-23 07:21] VITALS: BP 131/73; PULSE 73; RESP 16
== END 2023-04-23 10:30 | disposition left against medical advice (07) | DRG 770 ==
LOC: YASAS 15:30 → Y3NR 21:46 → Y5N 04-17 11:53
PROVIDERS: ADMIT Allergy & Immunology; ATTEND Psychiatry & Neurology Pain Medicine
PROC: HZ42ZZZ Group Counseling for Substance Abuse Treatment, Cognitive-Behavioral (ICD-10-PCS; principal; 2023-04-16)
DX: F10.20 Alcohol dependence, uncomplicated (principal); F17.210 Nicotine dependence, cigarettes, uncomplicated; I10 Essential (primary) hypertension; K21.9 Gastro-esophageal reflux disease without esophagitis; M17.0 Bilateral primary osteoarthritis of knee; M54.50 Low back pain, unspecified; G89.29 Other chronic pain; F91.8 Other conduct disorders; Z91.199 Patient's noncompliance with other medical treatment and regimen due to unspecified reason; S09.90XA Unspecified injury of head, initial encounter; W00.0XXA Fall on same level due to ice and snow, initial encounter; Y92.89 Other specified places as the place of occurrence of the external cause; Y99.8 Other external cause status
CPT/HCPCS: 36415; 70450-TC; 72125-TC; 80053; 80305; 80307; 82962; 83735; 85025; 87635; 87811; 99282-25

== ENCOUNTER 2024-07-10 01:43 | Emergency (ER) | payer OTHER ==
[2024-07-10 01:51] VITALS: RESP 18; TEMP 97.8; BMI 20.9
[2024-07-10] MEDS ORDERED: ACETAMINOPHEN 325 MG TABLET (FP) ONE (03:17)
[2024-07-10] MEDS: ACETAMINOPHEN 325 MG TABLET (FP) PO ONE (03:17)
[2024-07-10 05:32] VITALS: BP 152/75; PULSE 64
== END 2024-07-10 06:26 | disposition home or self-care (01) ==
LOC: JER 01:43
DX: M54.50 Low back pain, unspecified (principal); R29.898 Other symptoms and signs involving the musculoskeletal system; M25.569 Pain in unspecified knee; W19.XXXA Unspecified fall, initial encounter
CPT/HCPCS: 72131-TC; 99284-25